=== PATIENT | male | born 1995 | race African-American/Black ===

== ENCOUNTER 2016-09-12 21:31 | Emergency (ER) | payer SELFPAY ==
[2016-09-12 21:48] VITALS: BP 123/87; PULSE 87; RESP 16; TEMP 98.9
[2016-09-12] MEDS ORDERED: levETIRAcetam 500 MG TAB PO STA (22:09)
[2016-09-12] MEDS ORDERED: DIVALPROEX 250 MG TABLET.DR PO STA (22:09)
--- NOTE | 2016-09-12 22:27 | ED ---
General Adult HPI - General Chief complaint: Recheck/Abnormal Lab/Rx Stated complaint: recheck/off seizure meds Time Seen by Provider: 09/12/16 21:50 Source: patient Mode of arrival: ambulatory Limitations: no limitations - History of Present Illness Initial comments: 21-year-old Afro-[place] male presented for medication refill. He states that he ran out of his Keppra and Depakote earlier this month and hasn't been able to follow-up with his primary care physician to get prescriptions. He states that although he hasn't had any seizure-like activity he is growing concern that he will have a breakthrough seizure before getting the prescription. He denies any associated symptoms at this time. When asked why he hasn't followed up with his primary care physician he states that he just hasn't made any effort. His girlfriend is also a patient here which prompted him to be checked out as well. - Related Data Previous Rx's Medication Instructions Recorded Divalproex [Depakote] 750 mg PO TID #90 tablet. 09/12/16 levETIRAcetam [Keppra] 1,000 mg PO BID #60 tab 09/12/16 Allergies Allergy/AdvReac Type Severity Reaction Status Date / Time codeine Allergy Swelling Verified 09/12/16 22:09 ibuprofen Allergy Unknown Verified 09/12/16 22:09 lactose Allergy Unknown Verified 09/12/16 22:09 Review of Systems ROS Statement: Those systems with pertinent positive or pertinent negative responses have been documented in the HPI. General: Patient denies fever, chills,nausea, or vomiting. HEENT: No visual changes. No eye pain. No nasal symptoms. No dysphagia.No odynophagia. No ENT pain. Cardiac: No chest pain. No palpitations. Pulmonary; No dyspnea. No cough. GI: No abdominal pain. No diarrhea. No constipation. No bowel habit changes. No melena. No hematochezia. : No dysuria.No hematuria. No hesitancy. No urgency. No renal lithiasis history. Musculoskeletal: No musculoskeletal pain. Orthopedic: Denies fracture history. Integumentary: Denies rash. Denies pruritis. Neurologic: Denies any lateralizing weakness. Denies numbness. Denies tingling. No seizure activity. Heme/Onc: Denies anemia. Denies cancer. Denies adenopathy. ROS Other: All systems not noted in ROS Statement are negative. Past Medical History Past Medical History: Seizure Disorder Additional Past Medical History / Comment(s): Narcolepsy History of Any Multi-Drug Resistant Organisms: None Reported Past Surgical History: No Surgical Hx Reported Past Psychological History: Anxiety, Depression Smoking Status: Current every day smoker Past Alcohol Use History: None Reported Past Drug Use History: None Reported General Exam - General Exam Comments Initial Comments: General: The patient is awake and alert, in no distress, and does not appear acutely ill. Eye: Pupils are equal, round and reactive to light, extra-ocular movements are intact; there is normal conjunctiva bilaterally. No signs of icterus. Ears, nose, mouth and throat: There are moist mucous membranes and no oral lesions. Neck: The neck is supple, there is no tenderness or JVD. Cardiovascular: There is a regular rate and rhythm. No murmur, rub or gallop is appreciated. Respiratory: Lungs are clear to auscultation, respirations are non-labored, breath sounds are equal. No wheezes, stridor, rales, or rhonchi. Gastrointestinal: Soft, non-distended, non-tender abdomen without masses or organomegaly noted. There is no rebound or guarding present. No CVA tenderness. Bowel sounds are unremarkable. Back: There is no tenderness to palpation in the midline. There is no obvious deformity. No rashes noted. Musculoskeletal: Normal ROM, no tenderness, There is no pedal edema. There is no calf tenderness or swelling. Sensation intact. Pulses equal bilaterally 2+. Neurological: CN II-XII intact, There are no obvious motor or sensory deficits. Coordination appears grossly intact. Speech is normal. Skin: Skin is warm and dry and no rashes or lesions are noted. Psychiatric: Cooperative, appropriate mood & affect, normal judgment. Limitations: no limitations Course Vital Signs 09/12/16 21:45 Temperature 98.9 F Pulse Rate 87 Respiratory 16 Rate Blood Pressure 123/87 O2 Sat by Pulse 98 Oximetry Medical Decision Making - Medical Decision Making 21-year-old male presenting for medication refill. He states that he ran out of his seizure medications which include Depakote 750 mg 3 times a day and Keppra 1000 mg twice a day. He states that he hasn't taken his medications since September 01 or . He denies any seizure activity or other associated symptoms. Physical examination reveals a normal neurologic evaluation with cranial nerves II through XII intact without focal neurologic deficit. The patient was given oral doses of his home medications and prescriptions for a month of his antiseizure medications. He was advised to follow-up with his neurologist and his primary care physician. He was further advised to return to this facility if he should develop any new or concerning symptoms including seizure activity. The patient acknowledged an understanding of this information and agreed with this plan of care. Disposition Clinical Impression: Encounter for medication refill Disposition: HOME SELF-CARE Condition: Stable Instructions: Epilepsy (ED), Recurrent Seizures in Adults (ED) Additional Instructions: Please use medication as discussed. Please follow up with family doctor if symptoms have not improved over the next two days. Please return to the emergency room if your symptoms increase or worsen or for any other concerns. Prescriptions: Divalproex [Depakote] 750 mg PO TID #90 tablet. levETIRAcetam [Keppra] 1,000 mg PO BID #60 tab Referrals: Nayan Mendoza MD [Primary Care Provider] - 1-2 days Time of Disposition: 22:27
== END 2016-09-12 22:30 | disposition home or self-care (01) ==
LOC: EC 21:31
DX: Z76.0 Encounter for issue of repeat prescription (principal); T42.6X6A Underdosing of other antiepileptic and sedative-hypnotic drugs, initial encounter; Z91.128 Patient's intentional underdosing of medication regimen for other reason; G40.909 Epilepsy, unspecified, not intractable, without status epilepticus; F17.200 Nicotine dependence, unspecified, uncomplicated; Z79.899 Other long term (current) drug therapy; Z88.5 Allergy status to narcotic agent; Z88.8 Allergy status to other drugs, medicaments and biological substances
CPT/HCPCS: 99282

== ENCOUNTER 2016-09-16 15:05 | Emergency (ER) | payer SELFPAY ==
[2016-09-16 15:15] VITALS: TEMP 98.3
[2016-09-16] MEDS ORDERED: SODIUM CHLORIDE 0.9% 1,000 ML IV ONE (15:32)
[2016-09-16 16:18] LABS: Basophils % (A) 1 %; CH 29.7; Eosinophils # (A) 0.2 k/uL (0-0.7); Eosinophils % (A) 3 %; HCT 44.8 % (39.0-53.0); HDW 2.82; HGB 14.9 gm/dL (13.0-17.5); Luc % (Auto) 2; Lymphocytes # (A) 1.4 k/uL (1.0-4.8); Lymphocytes % (A) 22 %; MCH 29.1 pg (25.0-35.0); MCHC 33.2 g/dL (31.0-37.0); MCV 87.7 fL (80.0-100.0); Mean Platelet Volume 7.6; Monocytes # (A) 0.5 k/uL (0-1.0); Monocytes % (A) 8 %; Neutrophils # (A) 3.9 k/uL (1.3-7.7); Neutrophils % (A) 65 %; RDW 13.7 % (11.5-15.5); WBC 6.1 k/uL (3.8-10.6); WBC (Perox) 5.88
[2016-09-16 16:35] LABS: ALT 41 U/L (21-72); AST 22 U/L (17-59); Alkaline Phosphatase 56 U/L (38-126); Anion Gap 11 mmol/L; Blood Urea Nitrogen 10 mg/dL (9-20); Calcium 9.6 mg/dL (8.4-10.2); Carbon Dioxide 23 mmol/L (22-30); Chloride 110 mmol/L (98-107); Glucose 80 mg/dL (74-99); Non-African American GFR(MDRD) >60 (>60 ml/min/1.73 sqM); Potassium 4.6 mmol/L (3.5-5.1); Sodium 144 mmol/L (137-145); Total Bilirubin 0.5 mg/dL (0.2-1.3); Total Protein 6.8 g/dL (6.3-8.2)
--- NOTE | 2016-09-16 17:10 | ED ---
General Adult HPI - General Chief complaint: Seizure Stated complaint: Seizure Time Seen by Provider: 09/16/16 15:18 Source: patient, EMS, RN notes reviewed, old records reviewed Mode of arrival: EMS Limitations: no limitations - History of Present Illness Initial comments: 21-year-old male with seizure history presenting for seizure today. Patient is initially postictal and unable to give much history. He does follow commands and he knows where he is at. States he did have a seizure earlier but cannot remember much other than that. He states that this time that he has been taking his Keppra and Depakote. Per review of records it appears that he was seen on 09/12/16 due to running out of his medications and was provided Rx at that time. It does not appear that he had many seizures at that time. - Related Data Previous Rx's Medication Instructions Recorded Divalproex [Depakote] 750 mg PO TID #90 tablet. 09/12/16 levETIRAcetam [Keppra] 1,000 mg PO BID #60 tab 09/12/16 Allergies Allergy/AdvReac Type Severity Reaction Status Date / Time codeine Allergy Swelling Verified 09/16/16 15:35 ibuprofen Allergy Unknown Verified 09/16/16 15:35 lactose Allergy Unknown Verified 09/16/16 15:35 phenytoin [From Dilantin] Allergy Unknown Verified 09/16/16 15:35 Review of Systems ROS Statement: Those systems with pertinent positive or pertinent negative responses have been documented in the HPI. ROS Other: All systems not noted in ROS Statement are negative. Past Medical History Past Medical History: Seizure Disorder Additional Past Medical History / Comment(s): Narcolepsy History of Any Multi-Drug Resistant Organisms: None Reported Past Surgical History: No Surgical Hx Reported Past Psychological History: Anxiety, Depression Smoking Status: Current every day smoker Past Alcohol Use History: None Reported Past Drug Use History: None Reported General Exam - General Exam Comments Initial Comments: General: Awake and Alert. No acute distress. Does not appear acutely ill. Eyes: SALLY, EOM intact. No nystagmus. No scleral icterus. HENT: Atraumatic, normocephalic. Mucous membranes moist. Trachea midline. Neck: The neck is supple, there is no tenderness or JVD. Cardiovascular: Regular rate and rhythm. No murmur, rub, or gallop is appreciated. Distal pulses intact. Respiratory: Lungs are clear to auscultation bilaterally. No wheezes, rales, rhonchi. No respiratory distress. Gastrointestinal: Soft, Nontender. No rebound or guarding. Non-distended. No masses or organomegaly noted. No CVA tenderness. Musculoskeletal: No tenderness. Normal ROM. No gross deformity. No strength deficits. Neurological: Alert and oriented but somewhat confused, consistent with postictal state. CN II-XII grossly intact, There are no obvious motor or sensory deficits. Coordination appears grossly intact. Speech is normal. Skin: Skin is warm and dry and no rashes or lesions are noted. Psychiatric: Cooperative, appropriate mood & affect, normal judgment. Limitations: no limitations Course Vital Signs 09/16/16 09/16/16 09/16/16 15:10 15:58 18:18 Temperature 98.3 F 98.3 F Pulse Rate 92 74 101 H Respiratory 16 18 17 Rate Blood Pressure 110/53 92/49 124/56 O2 Sat by Pulse 93 L 100 Oximetry Medical Decision Making - Medical Decision Making 21-year-old male with history of seizures presenting for seizure. Patient initially placed in seizure precautions. No evidence of significant trauma on examination. No active seizing upon arrival. Lab work ordered. Started on IV fluids. Laboratory grossly unremarkable. Depakote level is subtherapeutic. Patient refused to provide a urine for UDS testing. On reevaluation patient is awake and alert. He had a food tray without issue. Patient is no longer postictal. States he is feeling back to baseline. Does state that he has not filled his medications which were prescribed for him back on the because of issues with his Medicaid running out. Discussed that he needs to follow-up and get his medications so he doesn't continue to have seizures. His understanding of this. Discussed close follow-up with his PCP and neurologist. Patient is otherwise stable for discharge home. He was given his doses of medications in the ED. He does have scripts currently on file with [facility] and is working to get them filled. Discussed concerning signs symptoms for immediate return to the ED. Patient is agreeable with plan and discharge home. - Lab Data Result diagrams: 09/16/16 15:55 09/16/16 15:55 Lab Results 09/16/16 09/16/16 09/16/16 Range/Units 15:55 15:55 18:03 WBC 6.1 (3.8-10.6) k/uL RBC 5.10 (4.30-5.90) m/uL Hgb 14.9 (13.0-17.5) gm/dL Hct 44.8 (39.0-53.0) % MCV 87.7 (80.0-100.0) fL MCH 29.1 (25.0-35.0) pg MCHC 33.2 (31.0-37.0) g/dL RDW 13.7 (11.5-15.5) % Plt Count 223 (150-450) k/uL Neutrophils % 65 % Lymphocytes % 22 % Monocytes % 8 % Eosinophils % 3 % Basophils % 1 % Neutrophils # 3.9 (1.3-7.7) k/uL Lymphocytes # 1.4 (1.0-4.8) k/uL Monocytes # 0.5 (0-1.0) k/uL Eosinophils # 0.2 (0-0.7) k/uL Basophils # 0.0 (0-0.2) k/uL Sodium 144 (137-145) mmol/L Potassium 4.6 (3.5-5.1) mmol/L Chloride 110 H (98-107) mmol/L Carbon Dioxide 23 (22-30) mmol/L Anion Gap 11 mmol/L BUN 10 (9-20) mg/dL Creatinine 0.80 (0.66-1.25) mg/dL Est GFR (MDRD) Af Amer >60 (>60 ml/min/1.73 sqM) Est GFR (MDRD) Non-Af >60 (>60 ml/min/1.73 sqM) Glucose 80 (74-99) mg/dL Calcium 9.6 (8.4-10.2) mg/dL Total Bilirubin 0.5 (0.2-1.3) mg/dL AST 22 (17-59) U/L ALT 41 (21-72) U/L Alkaline Phosphatase 56 (38-126) U/L Total Protein 6.8 (6.3-8.2) g/dL Albumin 4.2 (3.5-5.0) g/dL Urine Opiates Screen Not Detected (NotDetected) Ur Oxycodone Screen Not Detected (NotDetected) Urine Methadone Screen Not Detected (NotDetected) Ur Propoxyphene Screen Not Detected (NotDetected) Ur Barbiturates Screen Not Detected (NotDetected) Valproic Acid <10.0 ug/mL U Tricyclic Antidepress Not Detected (NotDetected) Ur Phencyclidine Scrn Not Detected (NotDetected) Ur Amphetamines Screen Not Detected (NotDetected) U Methamphetamines Scrn Not Detected (NotDetected) U Benzodiazepines Scrn Not Detected (NotDetected) Urine Cocaine Screen Not Detected (NotDetected) U Marijuana (THC) Screen Detected H (NotDetected) Disposition Clinical Impression: Seizure, Noncompliance with medication regimen Disposition: HOME SELF-CARE Condition: Stable Instructions: Recurrent Seizures in Adults (ED) Referrals: Nayan Mendoza MD [Primary Care Provider] - 1-2 days Time of Disposition: 18:10
[2016-09-16] MEDS ORDERED: DIVALPROEX 250 MG TABLET.DR PO STA (17:27)
[2016-09-16] MEDS ORDERED: levETIRAcetam 500 MG TAB PO STA (17:28)
[2016-09-16 18:20] VITALS: BP 124/56; PULSE 101; RESP 17
== END 2016-09-16 18:21 | disposition home or self-care (01) ==
LOC: EC 15:05
DX: G40.909 Epilepsy, unspecified, not intractable, without status epilepticus (principal); Z91.14 Patient's other noncompliance with medication regimen; Z79.899 Other long term (current) drug therapy; Z88.5 Allergy status to narcotic agent; Z88.8 Allergy status to other drugs, medicaments and biological substances; Z88.6 Allergy status to analgesic agent; Z91.011 Allergy to milk products; F17.200 Nicotine dependence, unspecified, uncomplicated
CPT/HCPCS: 36415; 80053; 80164; 80306; 85025; 99285

== ENCOUNTER 2016-10-20 22:42 | Emergency (ER) | payer SELFPAY ==
[2016-10-20 22:58] VITALS: BP 108/68; PULSE 72; RESP 17; TEMP 99.2
--- NOTE | 2016-10-20 23:19 | ED ---
General Adult HPI - General Chief complaint: Fall Stated complaint: left ankle pain; left foot pain Time Seen by Provider: 10/20/16 23:11 Source: patient, RN notes reviewed Mode of arrival: wheelchair Limitations: no limitations - History of Present Illness Initial comments: Patient is a 21-year-old male who presents emergency room today with chief complaint of injury to the left ankle and foot that occurred earlier today. He does admit that he was playing football earlier today stepped into a hole twisting left ankle. He admits that ankle itself is feeling better but he still had some pain to the left toe with believes he stubbed his toe a few days ago. He states he was wrestling with his nephew also hit the right hip on the dresser. He states been able abdomen. At times had pain in the right hip. Again patient was playing football earlier today. Patient denies any other complaints or symptoms at this time. Patient denies any recent fever, chills, shortness of breath, chest pain, back pain, abdominal pain, nausea or vomiting, numbness or tingling, dysuria or hematuria, constipation or diarrhea, headaches or visual changes, or any other complaints. - Related Data Previous Rx's Medication Instructions Recorded Divalproex [Depakote] 750 mg PO TID #90 tablet. 09/12/16 levETIRAcetam [Keppra] 1,000 mg PO BID #60 tab 09/12/16 Ibuprofen [Motrin] 600 mg PO Q6HR PRN #20 day 10/21/16 Allergies Allergy/AdvReac Type Severity Reaction Status Date / Time codeine Allergy Swelling Verified 10/20/16 22:54 ibuprofen Allergy Unknown Verified 10/20/16 22:54 lactose Allergy Unknown Verified 10/20/16 22:54 phenytoin [From Dilantin] Allergy Unknown Verified 10/20/16 22:54 Review of Systems ROS Statement: Those systems with pertinent positive or pertinent negative responses have been documented in the HPI. ROS Other: All systems not noted in ROS Statement are negative. Past Medical History Past Medical History: Seizure Disorder Additional Past Medical History / Comment(s): Narcolepsy History of Any Multi-Drug Resistant Organisms: None Reported Past Surgical History: No Surgical Hx Reported Past Psychological History: Anxiety, Depression Smoking Status: Current every day smoker Past Alcohol Use History: None Reported Past Drug Use History: None Reported General Exam - General Exam Comments Initial Comments: General: The patient is awake and alert, in no distress, and does not appear acutely ill. Neck: The neck is supple, there is no tenderness or JVD. Cardiovascular: There is a regular rate and rhythm. No murmur, rub or gallop is appreciated. Respiratory: Lungs are clear to auscultation, respirations are non-labored, breath sounds are equal. No wheezes, stridor, rales, or rhonchi. Musculoskeletal: Normal appearance of the right hip. No appearance of the left foot and ankle. Patient's sensation is intact pulses equal bilaterally 2+. Strength 5/5. Mild tenderness over the distal left toe. No other bony tenderness on exam. Neurological: A&O x 3. CN II-XII intact, There are no obvious motor or sensory deficits. Coordination appears grossly intact. Speech is normal. Skin: Skin is warm and dry and no rashes or lesions are noted. Psychiatric: Normal mood and affect. Limitations: no limitations Course Vital Signs 10/20/16 22:54 Temperature 99.2 F Pulse Rate 72 Respiratory 17 Rate Blood Pressure 108/68 O2 Sat by Pulse 98 Oximetry Medical Decision Making - Medical Decision Making Patient x-rays reviewed and are negative for any acute abnormalities. Patient is advised follow-up orthopedics if symptoms persist. Is advised to return for any other concerns. He does admit that he is taking Motrin at home. Has refused Toradol shot. He states the child Motrin even though he does have ALLERGY to ibuprofen again he does state he took Motrin yesterday. Disposition Clinical Impression: Ankle sprain, Toe sprain Disposition: HOME SELF-CARE Condition: Good Instructions: Ankle Sprain (ED) Additional Instructions: Please follow-up with orthopedics over the next week if symptoms are not improving. Please use medication as prescribed and return to emergency room for any other concerns. Prescriptions: Ibuprofen [Motrin] 600 mg PO Q6HR PRN #20 day PRN Reason: Pain Referrals: Nayan Mendoza MD [Primary Care Provider] - 1-2 days Simon Sims MD [Medical Doctor] - 1-2 days Time of Disposition: 00:12
--- NOTE | 2016-10-20 23:59 | XR ---
EXAM: XR Left Foot Complete, 3 or More Views. CLINICAL HISTORY: Reason: Pain TECHNIQUE: Frontal, lateral and oblique views of the left foot. COMPARISON: No relevant prior studies available. FINDINGS: Bones: Unremarkable. No acute fracture. Joints: Unremarkable. No dislocation. Soft tissues: Unremarkable. No radiopaque foreign body. IMPRESSION: Normal left foot.
--- NOTE | 2016-10-21 | XR ---
EXAM: XR Left Ankle Complete, 3 or More Views. CLINICAL HISTORY: Reason: Pain TECHNIQUE: Frontal, lateral and oblique views of the left ankle. COMPARISON: No relevant prior studies available. FINDINGS: Bones: Unremarkable. No acute fracture. Joints: Unremarkable. No dislocation. Soft tissues: Unremarkable. IMPRESSION: Normal left ankle.
[2016-10-21] MEDS ORDERED: IBUPROFEN 600 MG STARTER PACK 4 TAB BTL PO STA (00:11)
== END 2016-10-21 00:20 | disposition home or self-care (01) ==
LOC: EC 22:42
DX: S93.402A Sprain of unspecified ligament of left ankle, initial encounter (principal); S93.509A Unspecified sprain of unspecified toe(s), initial encounter; F17.200 Nicotine dependence, unspecified, uncomplicated; Z88.5 Allergy status to narcotic agent; Z88.6 Allergy status to analgesic agent; Z91.011 Allergy to milk products; Z88.8 Allergy status to other drugs, medicaments and biological substances; X50.1XXA Overexertion from prolonged static or awkward postures, initial encounter; Y93.61 Activity, american tackle football
CPT/HCPCS: 99283

== ENCOUNTER 2016-11-03 11:10 | Emergency (ER) | payer OTHER ==
[2016-11-03] MEDS ORDERED: SODIUM CHLORIDE 0.9% 1,000 ML IV STA ×2 (11:20)
[2016-11-03] MEDS ORDERED: levETIRAcetam IV 500 MG in SODIUM CHLORIDE 0.9% 100 ML IVPB STA (11:21)
[2016-11-03 11:28] LABS: Glucose,Whole Blood 152 mg/dL (75-99)
[2016-11-03 11:41] LABS: Basophils # (A) 0.1 k/uL (0-0.2); Basophils % (A) 1 %; CH 28.4; CHCM 31.5; Eosinophils # (A) 0.1 k/uL (0-0.7); Eosinophils % (A) 1 %; HCT 53.8 % (39.0-53.0); HDW 2.62; HGB 17.3 gm/dL (13.0-17.5); Hypochromasia Slight; Luc # (Auto) 0.38; Luc % (Auto) 4; Lymphocytes # (A) 5.9 k/uL (1.0-4.8); Lymphocytes % (A) 57 %; MCHC 32.1 g/dL (31.0-37.0); MCV 90.5 fL (80.0-100.0); Mean Platelet Volume 7.5; Monocytes # (A) 0.6 k/uL (0-1.0); Monocytes % (A) 6 %; Neutrophils # (A) 3.2 k/uL (1.3-7.7); Neutrophils % (A) 31 %; RBC 5.95 m/uL (4.30-5.90); RDW 11.7 % (11.5-15.5); WBC 10.3 k/uL (3.8-10.6); WBC (Perox) 10.53
[2016-11-03 11:50] LABS: ALT 20 U/L (21-72); AST 31 U/L (17-59); Alcohol <10 mg/dL; Alkaline Phosphatase 60 U/L (38-126); Anion Gap 30 mmol/L; Blood Urea Nitrogen 12 mg/dL (9-20); Calcium 10.3 mg/dL (8.4-10.2); Chloride 106 mmol/L (98-107); Glucose 150 mg/dL (74-99); Magnesium 2.5 mg/dL (1.6-2.3); Non-African American GFR(MDRD) >60 (>60 ml/min/1.73 sqM); Potassium 4.3 mmol/L (3.5-5.1); Sodium 146 mmol/L (137-145); Total Bilirubin 0.7 mg/dL (0.2-1.3); Total Protein 8.5 g/dL (6.3-8.2)
--- NOTE | 2016-11-03 11:56 | ED ---
Seizure HPI - General Chief Complaint: Seizure Stated Complaint: Seizures Time Seen by Provider: 11/03/16 11:10 Source: patient, RN notes reviewed Mode of arrival: EMS Limitations: no limitations - History of Present Illness Initial Comments: This is a 21-year-old male with a history of a seizure disorder who apparently was playing video games prior to admission when he had 2 seizures of unknown length of time. As per prior episodes he starts developing nausea vomiting after having a seizure. He was brought in by EMS with no further information the neck which was rendered by them initially. This is a similar pattern to the patient previous. He is on Depakote and Keppra. He has does have a history of abusing alcohol. It is unknown whether that was parked today's presentation. Patient does complain of a headache he did have adequate blood pressure and other vital signs as well as an adequate glucose on glucometer 3. Additionally the patient was given IV Zofran and route by paramedics. MD Complaint: seizure, other - Related Data Previous Rx's Medication Instructions Recorded Divalproex [Depakote] 750 mg PO TID #90 tablet. 09/12/16 levETIRAcetam [Keppra] 1,000 mg PO BID #60 tab 09/12/16 Ibuprofen [Motrin] 600 mg PO Q6HR PRN #20 day 10/21/16 Allergies Allergy/AdvReac Type Severity Reaction Status Date / Time codeine Allergy Swelling Verified 11/03/16 11:34 ibuprofen Allergy Unknown Verified 11/03/16 11:34 lactose Allergy Unknown Verified 11/03/16 11:34 phenytoin [From Dilantin] Allergy Unknown Verified 11/03/16 11:34 Review of Systems ROS Statement: Those systems with pertinent positive or pertinent negative responses have been documented in the HPI. ROS Other: All systems not noted in ROS Statement are negative. Past Medical History Past Medical History: Seizure Disorder Additional Past Medical History / Comment(s): Narcolepsy History of Any Multi-Drug Resistant Organisms: None Reported Past Surgical History: No Surgical Hx Reported Past Psychological History: Anxiety, Depression Smoking Status: Current every day smoker Past Alcohol Use History: None Reported Past Drug Use History: None Reported General Exam - General Exam Comments Initial Comments: Is a well-developed wall versus awake alert somewhat lethargic male Limitations: no limitations General appearance: alert, in no apparent distress Head exam: Present: atraumatic, normocephalic, normal inspection Eye exam: Present: normal appearance, PERRL, EOMI. Absent: scleral icterus, conjunctival injection, periorbital swelling ENT exam: Present: normal exam, mucous membranes moist Neck exam: Present: normal inspection. Absent: tenderness, meningismus, lymphadenopathy Respiratory exam: Present: normal lung sounds bilaterally. Absent: respiratory distress, wheezes, rales, rhonchi, stridor Cardiovascular Exam: Present: regular rate, normal rhythm, normal heart sounds. Absent: systolic murmur, diastolic murmur, rubs, gallop, clicks GI/Abdominal exam: Present: soft, normal bowel sounds. Absent: distended, tenderness, guarding, rebound, rigid Extremities exam: Present: normal inspection, full ROM, normal capillary refill. Absent: tenderness, pedal edema, joint swelling, calf tenderness Back exam: Present: normal inspection Neurological exam: Present: alert, oriented X3, CN II-XII intact Psychiatric exam: Present: normal affect, normal mood Skin exam: Present: warm, dry, intact, normal color. Absent: rash Course Vital Signs 11/03/16 11:32 Temperature 97.1 F L Pulse Rate 80 Respiratory 15 Rate Blood Pressure 126/70 O2 Sat by Pulse 97 Oximetry Medical Decision Making - Medical Decision Making Patient is now awake and alert hungry wants to eat. I did discuss findings with her significant other. Patient be discharged he did take his medications as directed avoid alcohol and also avoid video games and flashing lights and monitor screens. - Lab Data Result diagrams: 11/03/16 11:22 11/03/16 11:22 Lab Results 11/03/16 11/03/16 11/03/16 Range/Units 11:22 11:22 11:22 WBC 10.3 (3.8-10.6) k/uL RBC 5.95 H (4.30-5.90) m/uL Hgb 17.3 (13.0-17.5) gm/dL Hct 53.8 H (39.0-53.0) % MCV 90.5 (80.0-100.0) fL MCH 29.0 (25.0-35.0) pg MCHC 32.1 (31.0-37.0) g/dL RDW 11.7 (11.5-15.5) % Plt Count 290 (150-450) k/uL Neutrophils % 31 % Lymphocytes % 57 % Monocytes % 6 % Eosinophils % 1 % Basophils % 1 % Neutrophils # 3.2 (1.3-7.7) k/uL Lymphocytes # 5.9 H (1.0-4.8) k/uL Monocytes # 0.6 (0-1.0) k/uL Eosinophils # 0.1 (0-0.7) k/uL Basophils # 0.1 (0-0.2) k/uL Manual Slide Review Performed Hypochromasia Slight Poikilocytosis (manual Present Sodium 146 H (137-145) mmol/L Potassium 4.3 (3.5-5.1) mmol/L Chloride 106 (98-107) mmol/L Carbon Dioxide 10 L* (22-30) mmol/L Anion Gap 30 mmol/L BUN 12 (9-20) mg/dL Creatinine 1.00 (0.66-1.25) mg/dL Est GFR (MDRD) Af Amer >60 (>60 ml/min/1.73 sqM) Est GFR (MDRD) Non-Af >60 (>60 ml/min/1.73 sqM) Glucose 150 H (74-99) mg/dL POC Glucose (mg/dL) (75-99) mg/dL POC Glu Manga Artist ID Calcium 10.3 H (8.4-10.2) mg/dL Magnesium 2.5 H (1.6-2.3) mg/dL Total Bilirubin 0.7 (0.2-1.3) mg/dL AST 31 (17-59) U/L ALT 20 L (21-72) U/L Alkaline Phosphatase 60 (38-126) U/L Total Creatine Kinase 352 H (55-170) U/L CK-MB (CK-2) 1.0 (0.0-2.4) ng/mL CK-MB (CK-2) Rel Index 0.3 Total Protein 8.5 H (6.3-8.2) g/dL Albumin 5.3 H (3.5-5.0) g/dL Valproic Acid <10.0 ug/mL Serum Alcohol <10 mg/dL 11/03/16 Range/Units 11:26 WBC (3.8-10.6) k/uL RBC (4.30-5.90) m/uL Hgb (13.0-17.5) gm/dL Hct (39.0-53.0) % MCV (80.0-100.0) fL MCH (25.0-35.0) pg MCHC (31.0-37.0) g/dL RDW (11.5-15.5) % Plt Count (150-450) k/uL Neutrophils % % Lymphocytes % % Monocytes % % Eosinophils % % Basophils % % Neutrophils # (1.3-7.7) k/uL Lymphocytes # (1.0-4.8) k/uL Monocytes # (0-1.0) k/uL Eosinophils # (0-0.7) k/uL Basophils # (0-0.2) k/uL Manual Slide Review Hypochromasia Poikilocytosis (manual Sodium (137-145) mmol/L Potassium (3.5-5.1) mmol/L Chloride (98-107) mmol/L Carbon Dioxide (22-30) mmol/L Anion Gap mmol/L BUN (9-20) mg/dL Creatinine (0.66-1.25) mg/dL Est GFR (MDRD) Af Amer (>60 ml/min/1.73 sqM) Est GFR (MDRD) Non-Af (>60 ml/min/1.73 sqM) Glucose (74-99) mg/dL POC Glucose (mg/dL) 152 H (75-99) mg/dL POC Glu Manga Artist ID Calcium (8.4-10.2) mg/dL Magnesium (1.6-2.3) mg/dL Total Bilirubin (0.2-1.3) mg/dL AST (17-59) U/L ALT (21-72) U/L Alkaline Phosphatase (38-126) U/L Total Creatine Kinase (55-170) U/L CK-MB (CK-2) (0.0-2.4) ng/mL CK-MB (CK-2) Rel Index Total Protein (6.3-8.2) g/dL Albumin (3.5-5.0) g/dL Valproic Acid ug/mL Serum Alcohol mg/dL - EKG Data -: EKG Interpreted by Me (Sinus rhythm a rate of 62 CT interval 140 QRS duration 98 QT/QTC of 4:30/43) EKG shows normal: sinus rhythm, axis - Radiology Data Radiology results: report reviewed (I did review the imaging and reports no acute findings.), image reviewed Disposition Clinical Impression: Generalized seizure, Seizure secondary to subtherapeutic anticonvulsant medication Disposition: HOME SELF-CARE Condition: Good Instructions: Recurrent Seizures in Adults (ED) Additional Instructions: Take your medications as instructed and follow-up with her doctor. Avoid flashing lights and television screens/ video screens
[2016-11-03 11:59] LABS: Carbon Dioxide 10 mmol/L (22-30)
[2016-11-03 12:00] LABS: Manual Review Performed
--- NOTE | 2016-11-03 13:11 | XR ---
EXAMINATION TYPE: XR chest 2V DATE OF EXAM: 11/03/2016 1:00 PM COMPARISON: 03/25/2016 HISTORY: Seizure TECHNIQUE: Frontal and lateral views of the chest are obtained. FINDINGS: Heart and mediastinum are normal. Lungs are clear. Diaphragm is normal. Bony thorax appear s normal. IMPRESSION: Normal chest. No change.
[2016-11-03 14:09] VITALS: BP 99/52; PULSE 52; RESP 20; TEMP 98
== END 2016-11-03 14:09 | disposition home or self-care (01) ==
LOC: EC 11:10
DX: R56.9 Unspecified convulsions (principal); T42.6X5A Adverse effect of other antiepileptic and sedative-hypnotic drugs, initial encounter; F17.200 Nicotine dependence, unspecified, uncomplicated; Z88.5 Allergy status to narcotic agent; Z88.6 Allergy status to analgesic agent; Z91.011 Allergy to milk products; Z88.8 Allergy status to other drugs, medicaments and biological substances
CPT/HCPCS: 36415; 93005; 80164; 80053; 82550; 82553; 83735; 85025; 80320; 71020; 99285; 96374; 96361; J1953

== ENCOUNTER 2016-11-12 04:02 | Emergency (ER) | payer OTHER ==
[2016-11-12] MEDS ORDERED: SODIUM CHLORIDE 0.9% 500 ML IV ONE (04:13)
[2016-11-12] MEDS ORDERED: ACETAMINOPHEN TAB 500 MG TAB PO STA (04:14)
[2016-11-12 04:15] LABS: Glucose,Whole Blood 154 mg/dL (75-99)
--- NOTE | 2016-11-12 04:18 | ED ---
General Adult HPI - General Stated complaint: Vomiting/Seizure Time Seen by Provider: 11/12/16 04:10 Source: RN notes reviewed - History of Present Illness Initial comments: This is a 21-year-old male who presents emergency department with past medical history significant for seizures. According to bystanders at the house he was at they stated he had a seizure by the time EMS arrived they had stopped seizing and was postictal. Patient was at that time vomiting according to the patient now he states every time he has a seizure he vomits afterwards. Patient complains of a mild headache at this time. Patient states been taking his meds religiously. Patient states she's had no alcohol and he was only smoking some marijuana. Patient denies any other problems at this time. Patient denies chest pain palpitations difficulty breathing or shortness of breath. Patient denies any abdominal pain. Patient denies any recent fever or chills. - Related Data Previous Rx's Medication Instructions Recorded Divalproex [Depakote] 750 mg PO TID #90 tablet. 09/12/16 levETIRAcetam [Keppra] 1,000 mg PO BID #60 tab 09/12/16 Ibuprofen [Motrin] 600 mg PO Q6HR PRN #20 day 10/21/16 Allergies Allergy/AdvReac Type Severity Reaction Status Date / Time codeine Allergy Swelling Verified 11/12/16 04:21 ibuprofen Allergy Unknown Verified 11/12/16 04:21 lactose Allergy Unknown Verified 11/12/16 04:21 phenytoin [From Dilantin] Allergy Unknown Verified 11/12/16 04:21 Review of Systems ROS Statement: Those systems with pertinent positive or pertinent negative responses have been documented in the HPI. ROS Other: All systems not noted in ROS Statement are negative. Past Medical History Past Medical History: Seizure Disorder Additional Past Medical History / Comment(s): Narcolepsy History of Any Multi-Drug Resistant Organisms: None Reported Past Surgical History: No Surgical Hx Reported Past Psychological History: Anxiety, Depression Smoking Status: Current every day smoker Past Alcohol Use History: None Reported Past Drug Use History: None Reported General Exam - General Exam Comments Initial Comments: GENERAL: Patient is well-developed and well-nourished. Patient is nontoxic and well- hydrated and is in no acute distress. ENT: Neck is soft and supple. No significant lymphadenopathy is noted. Oropharynx is clear. Moist mucous membranes. Neck has full range of motion without eliciting any pain. EYES: The sclera were anicteric and conjunctiva were pink and moist. Extraocular movements were intact and pupils were equal round and reactive to light. Eyelids were unremarkable. PULMONARY: Unlabored respirations. Good breath sounds bilaterally. No audible rales rhonchi or wheezing was noted. CARDIOVASCULAR: There is a regular rate and rhythm without any murmurs gallops or rubs. ABDOMEN: Soft and nontender with normal bowel sounds. No palpable organomegaly was noted. There is no palpable pulsatile mass. SKIN: Skin is clear with no lesions or rashes and otherwise unremarkable. NEUROLOGIC: Patient is alert and oriented x3. Cranial nerves II through XII are grossly intact. Motor and sensory are also intact. Normal speech, volume and content. Symmetrical smile. MUSCULOSKELETAL: Normal extremities with adequate strength and full range of motion. LYMPHATICS: No significant lymphadenopathy is noted PSYCHIATRIC: Normal psychiatric evaluation. Course Vital Signs 11/12/16 04:15 Temperature 97.8 F Pulse Rate 76 Respiratory 16 Rate Blood Pressure 142/75 O2 Sat by Pulse 100 Oximetry Medical Decision Making - Medical Decision Making Patient told us initially he was taking all his medications on a regular basis and not missing any doses. Then he told us that he didn't take his typical for a few days but he has Depakote at home and then he told me that he doesn't think he has any more Depakote home so because his story keeps changing we will have him follow up with his primary medical care doctor. - Lab Data Result diagrams: 11/12/16 04:20 11/12/16 04:20 Lab Results 11/12/16 11/12/16 11/12/16 Range/Units 04:09 04:20 04:20 WBC 10.4 (3.8-10.6) k/uL RBC 5.61 (4.30-5.90) m/uL Hgb 16.0 (13.0-17.5) gm/dL Hct 49.9 (39.0-53.0) % MCV 88.8 (80.0-100.0) fL MCH 28.6 (25.0-35.0) pg MCHC 32.2 (31.0-37.0) g/dL RDW 12.0 (11.5-15.5) % Plt Count 239 (150-450) k/uL Sodium 143 (137-145) mmol/L Potassium 4.1 (3.5-5.1) mmol/L Chloride 105 (98-107) mmol/L Carbon Dioxide 16 L (22-30) mmol/L Anion Gap 22 mmol/L BUN 11 (9-20) mg/dL Creatinine 1.00 (0.66-1.25) mg/dL Est GFR (MDRD) Af Amer >60 (>60 ml/min/1.73 sqM) Est GFR (MDRD) Non-Af >60 (>60 ml/min/1.73 sqM) Glucose 142 H (74-99) mg/dL POC Glucose (mg/dL) 154 H (75-99) mg/dL POC Glu Telephone Order Clerk Room Service ID Ellis Nolasco Calcium 9.6 (8.4-10.2) mg/dL Total Bilirubin 0.5 (0.2-1.3) mg/dL AST 28 (17-59) U/L ALT 24 (21-72) U/L Alkaline Phosphatase 54 (38-126) U/L Total Protein 7.5 (6.3-8.2) g/dL Albumin 4.8 (3.5-5.0) g/dL Valproic Acid <10.0 ug/mL Disposition Clinical Impression: Generalized seizure Disposition: HOME SELF-CARE Instructions: Recurrent Seizures in Adults (ED) Referrals: Nayan Mendoza MD [Primary Care Provider] - 1-2 days Time of Disposition: 05:29
[2016-11-12 04:53] LABS: Basophils # (A) 0.1 k/uL (0-0.2); Basophils % (A) 1 %; CH 28.5; CHCM 32.2; Eosinophils # (A) 0.1 k/uL (0-0.7); Eosinophils % (A) 1 %; HCT 49.9 % (39.0-53.0); HDW 2.45; Luc % (Auto) 3; Lymphocytes % (A) 58 %; MCH 28.6 pg (25.0-35.0); MCHC 32.2 g/dL (31.0-37.0); MCV 88.8 fL (80.0-100.0); Mean Platelet Volume 7.3; Monocytes # (A) 0.6 k/uL (0-1.0); Monocytes % (A) 5 %; Neutrophils # (A) 3.4 k/uL (1.3-7.7); Neutrophils % (A) 33 %; RBC 5.61 m/uL (4.30-5.90); WBC 10.4 k/uL (3.8-10.6); WBC (Perox) 9.94
[2016-11-12 05:01] LABS: ALT 24 U/L (21-72); AST 28 U/L (17-59); Alkaline Phosphatase 54 U/L (38-126); Anion Gap 22 mmol/L; Blood Urea Nitrogen 11 mg/dL (9-20); Calcium 9.6 mg/dL (8.4-10.2); Carbon Dioxide 16 mmol/L (22-30); Chloride 105 mmol/L (98-107); Glucose 142 mg/dL (74-99); Non-African American GFR(MDRD) >60 (>60 ml/min/1.73 sqM); Potassium 4.1 mmol/L (3.5-5.1); Sodium 143 mmol/L (137-145); Total Bilirubin 0.5 mg/dL (0.2-1.3); Total Protein 7.5 g/dL (6.3-8.2)
[2016-11-12] MEDS ORDERED: DIVALPROEX ER 250 MG TAB.ER.24H PO STA (05:27)
[2016-11-12 05:46] LABS: Large Platelets Present
[2016-11-12 06:44] VITALS: BP 126/79; PULSE 79; RESP 18; TEMP 98
== END 2016-11-12 06:25 | disposition home or self-care (01) ==
LOC: EC 04:02
DX: R56.9 Unspecified convulsions (principal); R51 Headache; R11.10 Vomiting, unspecified; F32.9 Major depressive disorder, single episode, unspecified; F41.9 Anxiety disorder, unspecified; F17.200 Nicotine dependence, unspecified, uncomplicated; Z79.899 Other long term (current) drug therapy; Z88.5 Allergy status to narcotic agent; Z88.6 Allergy status to analgesic agent; Z88.8 Allergy status to other drugs, medicaments and biological substances; Z91.011 Allergy to milk products
CPT/HCPCS: 36415; 80053; 80164; 80177; 85025; 96360; 99284

== ENCOUNTER 2017-02-02 09:29 | Emergency (ER) | payer OTHER ==
[2017-02-02 09:38] VITALS: RESP 16; TEMP 98
[2017-02-02] MEDS ORDERED: ACETAMINOPHEN TAB 325 MG TAB PO STA (09:53)
--- NOTE | 2017-02-02 09:53 | ED ---
Upper Extremity HPI - General Chief Complaint: Extremity Injury, Upper Stated Complaint: hand injury Time Seen by Provider: 02/02/17 09:44 Source: patient, RN notes reviewed Mode of arrival: ambulatory Limitations: no limitations - History of Present Illness Initial Comments: Patient's 21-year-old male presents emergency room for evaluation of right hand injury. Patient states last night he got angry and punched a door with his right fist. Patient states he's having pain in his right hand and wrist. Patient states having 6 out of 10 pain. Patient is having swelling over his hand. Patient denies any previous injuries to his hand. Patient does state he is right-handed. Patient has a numbness or tingling in his fingers. Patient denies taking anything for pain. Patient denies any other symptoms or complaints. - Related Data Previous Rx's Medication Instructions Recorded Divalproex [Depakote] 750 mg PO TID #90 tablet. 09/12/16 levETIRAcetam [Keppra] 1,000 mg PO BID #60 tab 09/12/16 RX: Ibuprofen [Motrin] 600 mg PO Q6HR PRN #20 day 10/21/16 Allergies Allergy/AdvReac Type Severity Reaction Status Date / Time codeine Allergy Swelling Verified 02/02/17 10:31 ibuprofen Allergy Unknown Verified 02/02/17 10:31 lactose Allergy Unknown Verified 02/02/17 10:31 phenytoin [From Dilantin] Allergy Unknown Verified 02/02/17 10:31 Review of Systems ROS Statement: Those systems with pertinent positive or pertinent negative responses have been documented in the HPI. ROS Other: All systems not noted in ROS Statement are negative. Past Medical History Past Medical History: Seizure Disorder Additional Past Medical History / Comment(s): Narcolepsy History of Any Multi-Drug Resistant Organisms: None Reported Past Surgical History: No Surgical Hx Reported Past Psychological History: Anxiety, Depression Smoking Status: Current every day smoker Past Alcohol Use History: None Reported, Occasional Past Drug Use History: Marijuana General Exam - General Exam Comments Initial Comments: Sitting in exam room, no acute distress. Limitations: no limitations General appearance: alert, in no apparent distress Head exam: Present: atraumatic, normocephalic, normal inspection Eye exam: Present: normal appearance ENT exam: Present: normal exam Neck exam: Present: normal inspection Respiratory exam: Present: normal lung sounds bilaterally. Absent: respiratory distress Cardiovascular Exam: Present: regular rate, normal rhythm, normal heart sounds Right Forearm Wrist exam: Present: tenderness (Tenderness on palpating over distal ulnar wrist) Hand Wrist exam: Present: full ROM, tenderness (Tenderness and swelling on palpating over fourth and fifth metacarpal bones and over fifth digit), swelling. Absent: normal inspection Neuro motor exam: Present: wrist extension intact Vascular: Present: normal capillary refill (Capillary refill less than 2 seconds ), radial pulse (2+), ulnar pulse (2+). Absent: vascular compromise Back exam: Present: normal inspection Neurological exam: Present: alert, oriented X3, CN II-XII intact, normal gait Psychiatric exam: Present: normal affect, normal mood Skin exam: Present: warm, dry, intact, normal color. Absent: rash Course Vital Signs 02/02/17 02/02/17 09:32 10:34 Temperature 98.0 F 98.0 F Pulse Rate 81 54 L Respiratory 16 16 Rate Blood Pressure 129/72 125/67 O2 Sat by Pulse 98 99 Oximetry Medical Decision Making - Medical Decision Making Patient is a 21-year-old male presents emergency room for evaluation of right hand pain. Right hand/wrist x-ray negative for any acute fractures. Patient placed in Stew wrap and advised to follow-up with primary care provider if symptoms are not improving in 7-10 days. Patient states he understands everything was discussed with him. Return parameters discussed. Case discussed Dr. Ziegler. - Radiology Data Radiology results: report reviewed, image reviewed Disposition Clinical Impression: Sprain of right hand Disposition: HOME SELF-CARE Condition: Good Instructions: Hand Sprain (ED) Additional Instructions: Rest, elevate and ice on and off for 10-15 minutes for the next 24-48 hours. Take Tylenol as needed for pain. Please follow-up with primary care provider in 7-10 days if symptoms are not improving. If new symptoms develop or symptoms worsen, please return to the ER. Referrals: Nayan Mendoza MD [Primary Care Provider] - 1-2 days Time of Disposition: 10:34
--- NOTE | 2017-02-02 10:26 | XR ---
EXAMINATION TYPE: XR hand complete RT, XR wrist complete RT DATE OF EXAM: 02/02/2017 CLINICAL HISTORY: Wrist and hand pain after punching injury one day ago. TECHNIQUE: Frontal, lateral and oblique images of the right hand and wrist are obtained. In addition fourth scaphoid view right wrist is acquired. COMPARISON: Right hand x-ray December 12, 2014. FINDINGS: There is no acute fracture/dislocation evident in the right wrist. The joint spaces in th e right wrist appear within normal limits. The overlying soft tissue appears unremarkable. Images of right hand show no acute fracture or dislocation. The joint spaces are preserved. Overlying soft tissue is unremarkable. IMPRESSION: There is no acute fracture or dislocation in the right hand or wrist.
[2017-02-02 10:36] VITALS: BP 125/67; PULSE 54
== END 2017-02-02 10:48 | disposition home or self-care (01) ==
LOC: EC 09:29
DX: S63.8X1A Sprain of other part of right wrist and hand, initial encounter (principal); F17.200 Nicotine dependence, unspecified, uncomplicated; Z88.5 Allergy status to narcotic agent; Z88.6 Allergy status to analgesic agent; Z88.8 Allergy status to other drugs, medicaments and biological substances; Z91.011 Allergy to milk products; W22.09XA Striking against other stationary object, initial encounter
CPT/HCPCS: 99283

== ENCOUNTER 2017-04-05 12:08 | Emergency (ER) | payer OTHER ==
[2017-04-05 12:16] VITALS: TEMP 98.6
[2017-04-05] MEDS ORDERED: DIVALPROEX 250 MG TABLET.DR PO STA (12:54)
[2017-04-05] MEDS ORDERED: levETIRAcetam 500 MG TAB PO STA (12:54)
[2017-04-05 13:14] VITALS: BP 130/66; PULSE 59; RESP 16
--- NOTE | 2017-04-05 13:57 | ED ---
General Adult HPI - General Chief complaint: Seizure Stated complaint: seizure Time Seen by Provider: 04/05/17 12:36 Source: patient, EMS, RN notes reviewed, old records reviewed Mode of arrival: EMS - History of Present Illness Initial comments: If complaint history of present illness a 21-year-old male with history of seizure disorder since she was a baby. He has not had his medications including Depakote and Keppra for 1 month. States he missed an appointment has not had time to go back to get them refilled. - Related Data Previous Rx's Medication Instructions Recorded Divalproex [Depakote] 750 mg PO TID #90 tablet. 09/12/16 levETIRAcetam [Keppra] 1,000 mg PO BID #60 tab 09/12/16 Ibuprofen [Motrin] 600 mg PO Q6HR PRN #20 day 10/21/16 Divalproex [Depakote] 750 mg PO TID #90 tablet. 04/05/17 levETIRAcetam [Keppra] 1,000 mg PO TID #90 tab 04/05/17 Allergies Allergy/AdvReac Type Severity Reaction Status Date / Time codeine Allergy Swelling Verified 02/02/17 10:31 ibuprofen Allergy Unknown Verified 02/02/17 10:31 lactose Allergy Unknown Verified 02/02/17 10:31 phenytoin [From Dilantin] Allergy Unknown Verified 02/02/17 10:31 Review of Systems ROS Statement: Those systems with pertinent positive or pertinent negative responses have been documented in the HPI. Review of systems at this time small discomfort to complaint of mild pain to left side of his tongue no bleeding noted. Otherwise no complaint of headache chest pain shortness breath GI/ problems no neuro deficits this time. All systems are reviewed. Past medical problems again for seizure disorder since he was a child. Family history noncontributory. No cancers. ALLERGIES to codeine, ibuprofen lactulose and Dilantin. ROS Other: All systems not noted in ROS Statement are negative. Past Medical History Past Medical History: Seizure Disorder Additional Past Medical History / Comment(s): Narcolepsy History of Any Multi-Drug Resistant Organisms: None Reported Past Surgical History: No Surgical Hx Reported Past Psychological History: ADD/ADHD, Anxiety, Depression Smoking Status: Current some day smoker Past Alcohol Use History: None Reported, Occasional Past Drug Use History: Marijuana General Exam - General Exam Comments Initial Comments: General: The patient is awake and alert, in no distress, and does not appear acutely ill. Patient had a seizure prior to coming emergency room. Witnessed by his girlfriend. Vital signs are stable temperature 98.6 pulse 70 respiratory rate 18 pulse ox on percent room air blood pressure 1 weight over 62 Eye: Pupils are equal, round and reactive to light, extra-ocular movements are intact ; there is normal conjunctiva bilaterally. No signs of icterus. Ears, nose, mouth and throat: There are moist mucous membranes and no oral lesions. Neck: The neck is supple, there is no tenderness or JVD. Cardiovascular: There is a regular rate and rhythm. No murmur, rub or gallop is appreciated. Respiratory: Lungs are clear to auscultation, respirations are non-labored, breath sounds are equal. No wheezes, stridor, rales, or rhonchi. Gastrointestinal: Soft, non-distended, non-tender abdomen without masses or organomegaly noted. There is no rebound or guarding present. No CVA tenderness. Bowel sounds are unremarkable. Back: There is no tenderness to palpation in the midline. There is no obvious deformity. No rashes noted. Musculoskeletal: Normal ROM, no tenderness, There is no pedal edema. There is no calf tenderness or swelling. Sensation intact. Pulses equal bilaterally 2+. Neurological: CN II-XII intact, There are no obvious motor or sensory deficits. Coordination appears grossly intact. Speech is normal. No focal or lateralizing findings. Skin: Skin is warm and dry and no rashes or lesions are noted. Course Vital Signs 04/05/17 04/05/17 12:14 12:59 Temperature 98.6 F Pulse Rate 70 59 L Respiratory 18 16 Rate Blood Pressure 108/62 130/66 O2 Sat by Pulse 100 100 Oximetry Medical Decision Making - Medical Decision Making Medical decision making; the patient was given his dose of Depakote 750 and Keppra 1000 by mouth. Pseudotumor receiving that the patient wanted to leave. He is at this time signing out AGAINST MEDICAL ADVICE. Not allowing labs to be drawn or waiting long enough for the medications to be effective. Or for observation. Patient will be given prescription for refill. Strongly advised follow-up with his family physician and his neurologist. Disposition Clinical Impression: Seizure disorder, Non-compliant patient Disposition: Left Against Medical Advice Condition: Stable Instructions: Recurrent Seizures in Adults (ED) Additional Instructions: Get prescriptions filled take as directed follow with family physician and your neurologist. No driving for 6 months until cleared by Prescriptions: Divalproex [Depakote] 750 mg PO TID #90 tablet. levETIRAcetam [Keppra] 1,000 mg PO TID #90 tab Referrals: Nayan Mendoza MD [Primary Care Provider] - 1-2 days Time of Disposition: 13:57
== END 2017-04-05 14:00 | disposition left against medical advice (07) ==
LOC: EC 12:08
DX: G40.909 Epilepsy, unspecified, not intractable, without status epilepticus (principal); Z91.19 Patient's noncompliance with other medical treatment and regimen; F17.200 Nicotine dependence, unspecified, uncomplicated; Z53.29 Procedure and treatment not carried out because of patient's decision for other reasons; Z88.5 Allergy status to narcotic agent; Z88.6 Allergy status to analgesic agent; Z88.8 Allergy status to other drugs, medicaments and biological substances; Z91.011 Allergy to milk products; Z79.899 Other long term (current) drug therapy
CPT/HCPCS: 99284

== ENCOUNTER 2017-06-11 23:44 | Emergency (ER) | payer OTHER ==
[2017-06-11 23:55] VITALS: TEMP 97.9
--- NOTE | 2017-06-12 00:21 | ED ---
Seizure HPI - General Chief Complaint: Seizure Stated Complaint: Poss seizure Time Seen by Provider: 06/11/17 23:55 Source: EMS Mode of arrival: EMS Limitations: no limitations - History of Present Illness MD Complaint: seizure -: minutes(s) Description of Episode: loss of consciousness, tonic-clonic movement Duration of Episode: 1 -: minutes(s) Seizure History: known seizure disorder, history of non-compliance with treatment Possible Precipitating Event: none Associated Symptoms: denies other symptoms Treatments Prior to Arrival: none - Related Data Previous Rx's Medication Instructions Recorded Divalproex [Depakote] 750 mg PO TID #90 tablet. 09/12/16 levETIRAcetam [Keppra] 1,000 mg PO BID #60 tab 09/12/16 Ibuprofen [Motrin] 600 mg PO Q6HR PRN #20 day 10/21/16 Divalproex [Depakote] 750 mg PO TID #90 tablet. 04/05/17 levETIRAcetam [Keppra] 1,000 mg PO TID #90 tab 04/05/17 Allergies Allergy/AdvReac Type Severity Reaction Status Date / Time codeine Allergy Swelling Verified 02/02/17 10:31 ibuprofen Allergy Unknown Verified 02/02/17 10:31 lactose Allergy Unknown Verified 02/02/17 10:31 phenytoin [From Dilantin] Allergy Unknown Verified 02/02/17 10:31 Review of Systems ROS Statement: Those systems with pertinent positive or pertinent negative responses have been documented in the HPI. ROS Other: All systems not noted in ROS Statement are negative. Constitutional: Denies: fever, weakness Eyes: Denies: vision change Respiratory: Denies: cough, dyspnea Cardiovascular: Denies: chest pain, syncope Gastrointestinal: Denies: abdominal pain Musculoskeletal: Denies: back pain Skin: Denies: rash Neurological: Denies: headache, weakness Past Medical History Past Medical History: Seizure Disorder Additional Past Medical History / Comment(s): Narcolepsy History of Any Multi-Drug Resistant Organisms: None Reported Past Surgical History: No Surgical Hx Reported Past Psychological History: ADD/ADHD, Anxiety, Depression Smoking Status: Current some day smoker Past Alcohol Use History: None Reported, Occasional Past Drug Use History: Marijuana General Exam Limitations: no limitations General appearance: alert, in no apparent distress Head exam: Present: atraumatic, normocephalic Eye exam: Present: normal appearance, PERRL, EOMI. Absent: scleral icterus, conjunctival injection, nystagmus ENT exam: Present: normal oropharynx Neck exam: Present: normal inspection Respiratory exam: Present: normal lung sounds bilaterally. Absent: respiratory distress, wheezes, rales, rhonchi, stridor Cardiovascular Exam: Present: normal rhythm, bradycardia (Rate approximately 56 bpm), normal heart sounds. Absent: systolic murmur, diastolic murmur, rubs, gallop GI/Abdominal exam: Present: soft. Absent: distended, tenderness, guarding, rebound, mass Extremities exam: Present: normal inspection, normal capillary refill. Absent: pedal edema, calf tenderness Back exam: Present: normal inspection. Absent: CVA tenderness (R), CVA tenderness (L) Neurological exam: Present: alert, oriented X3, CN II-XII intact. Absent: motor sensory deficit Skin exam: Present: warm, dry, intact, normal color. Absent: rash Course Vital Signs 06/11/17 06/12/17 23:49 00:52 Temperature 97.9 F Pulse Rate 51 L 70 Respiratory 16 16 Rate Blood Pressure 144/85 92/52 O2 Sat by Pulse 97 100 Oximetry Medical Decision Making - Lab Data Result diagrams: 06/12/17 00:00 06/12/17 00:00 Lab Results 06/12/17 06/12/17 06/12/17 Range/Units 00:00 00:00 00:00 WBC 14.7 H (3.8-10.6) k/uL RBC 6.17 H (4.30-5.90) m/uL Hgb 16.6 (13.0-17.5) gm/dL Hct 53.4 H (39.0-53.0) % MCV 86.6 (80.0-100.0) fL MCH 26.9 (25.0-35.0) pg MCHC 31.1 (31.0-37.0) g/dL RDW 12.4 (11.5-15.5) % Plt Count 242 (150-450) k/uL Neutrophils % (Manual) 29 % Band Neutrophils % 1 % Lymphocytes % (Manual) 66 % Monocytes % (Manual) 4 % Neutrophils # (Manual) 4.40 (1.3-7.7) k/uL Lymphocytes # (Manual) 9.70 H (1.0-4.8) k/uL Monocytes # (Manual) 0.59 (0-1.0) k/uL Nucleated RBCs 0 (0-0) /100 WBC Manual Slide Review Performed Reactive Lymphocytes Present Large Platelets Present Sodium 141 (137-145) mmol/L Potassium 4.0 (3.5-5.1) mmol/L Chloride 104 (98-107) mmol/L Carbon Dioxide 12 L (22-30) mmol/L Anion Gap 25 mmol/L BUN 10 (9-20) mg/dL Creatinine 1.10 (0.66-1.25) mg/dL Est GFR (MDRD) Af Amer >60 (>60 ml/min/1.73 sqM) Est GFR (MDRD) Non-Af >60 (>60 ml/min/1.73 sqM) Glucose 172 H (74-99) mg/dL Calcium 10.2 (8.4-10.2) mg/dL Total Bilirubin 0.4 (0.2-1.3) mg/dL AST 29 (17-59) U/L ALT 29 (21-72) U/L Alkaline Phosphatase 52 (38-126) U/L Total Protein 7.6 (6.3-8.2) g/dL Albumin 5.1 H (3.5-5.0) g/dL Urine Opiates Screen Not Detected (NotDetected) Ur Oxycodone Screen Not Detected (NotDetected) Urine Methadone Screen Not Detected (NotDetected) Ur Propoxyphene Screen Not Detected (NotDetected) Ur Barbiturates Screen Not Detected (NotDetected) Valproic Acid <10.0 ug/mL U Tricyclic Antidepress Not Detected (NotDetected) Ur Phencyclidine Scrn Not Detected (NotDetected) Ur Amphetamines Screen Not Detected (NotDetected) U Methamphetamines Scrn Not Detected (NotDetected) U Benzodiazepines Scrn Not Detected (NotDetected) Urine Cocaine Screen Not Detected (NotDetected) U Marijuana (THC) Screen Detected H (NotDetected) - EKG Data EKG shows normal: sinus rhythm (With sinus arrhythmia, rate 70 bpm), axis ( Rightward), intervals (Normal), QRS complexes (Normal), ST-T waves (Normal) Rate: normal Disposition Clinical Impression: Generalized seizure Disposition: HOME SELF-CARE Condition: Good Instructions: Recurrent Seizures in Adults (ED) Referrals: Nayan Mendoza MD [Primary Care Provider] - 1-2 days
[2017-06-12 00:29] LABS: CH 27.6; HCT 53.4 % (39.0-53.0); HDW 2.49; HGB 16.6 gm/dL (13.0-17.5); MCH 26.9 pg (25.0-35.0); MCHC 31.1 g/dL (31.0-37.0); MCV 86.6 fL (80.0-100.0); Mean Platelet Volume 7.2; RBC 6.17 m/uL (4.30-5.90); RDW 12.4 % (11.5-15.5); WBC 14.7 k/uL (3.8-10.6); WBC (Perox) 13.52
[2017-06-12 00:30] LABS: ALT 29 U/L (21-72); AST 29 U/L (17-59); Alkaline Phosphatase 52 U/L (38-126); Anion Gap 25 mmol/L; Blood Urea Nitrogen 10 mg/dL (9-20); Calcium 10.2 mg/dL (8.4-10.2); Carbon Dioxide 12 mmol/L (22-30); Chloride 104 mmol/L (98-107); Glucose 172 mg/dL (74-99); Non-African American GFR(MDRD) >60 (>60 ml/min/1.73 sqM); Sodium 141 mmol/L (137-145); Total Bilirubin 0.4 mg/dL (0.2-1.3); Total Protein 7.6 g/dL (6.3-8.2)
[2017-06-12 00:39] LABS: Add Differential Manual Differential
[2017-06-12 00:41] LABS: Band Neutrophils % 1 %; Large Platelets Present; Manual Review Performed; Nucleated Red Blood Cells 0 /100 WBC (0-0); Reactive Lymphocytes Present; Total Cells Counted 100
[2017-06-12] MEDS ORDERED: levETIRAcetam 500 MG TAB PO STA (01:50)
[2017-06-12] MEDS ORDERED: DIVALPROEX 250 MG TABLET.DR PO STA (01:50)
[2017-06-12 02:15] VITALS: BP 121/62; PULSE 88; RESP 17
== END 2017-06-12 02:34 | disposition home or self-care (01) ==
LOC: EC 23:44
DX: G40.409 Other generalized epilepsy and epileptic syndromes, not intractable, without status epilepticus (principal); I49.8 Other specified cardiac arrhythmias; F17.200 Nicotine dependence, unspecified, uncomplicated; Z88.5 Allergy status to narcotic agent; Z88.6 Allergy status to analgesic agent; Z88.8 Allergy status to other drugs, medicaments and biological substances; Z91.011 Allergy to milk products
CPT/HCPCS: 36415; 80053; 80164; 80177; 80306; 85025; 93005; 99284

== ENCOUNTER 2017-07-30 21:23 | Emergency (ER) | payer OTHER ==
[2017-07-30 21:27] VITALS: BP 142/81; PULSE 74; RESP 17; TEMP 98.9
[2017-07-30] MEDS ORDERED: AZITHROMYCIN 500 MG TAB PO STA (21:35)
[2017-07-30] MEDS ORDERED: cefTRIAXone 250 MG VIAL IM STA (21:35)
[2017-07-30 21:58] LABS: Appearance,Urine Clear (Clear); Bilirubin,Urine Negative (Negative); Blood,Urine Negative (Negative); Color,Urine Yellow; Glucose,Urine (UA) Negative (Negative); Ketones,Urine Negative (Negative); Leukocyte Esterase,Urine Negative (Negative); Nitrite,Urine Negative (Negative); PH, Urine 8.5 (5.0-8.0); Protein,Urine Trace (Negative); Specific Gravity,Urine 1.015 (1.001-1.035); Urobilinogen,Urine <2.0 mg/dL (<2.0)
--- NOTE | 2017-07-30 22:05 | ED ---
General Adult HPI - General Chief complaint: Recheck/Abnormal Lab/Rx Stated complaint: STD Testing Time Seen by Provider: 07/30/17 21:34 Source: patient, RN notes reviewed Mode of arrival: ambulatory Limitations: no limitations - History of Present Illness Initial comments: 22-year-old male presents to the emergency department with a chief complaint of concern for STD. Girlfriend Was found to have gonorrhea. He states he is here for treatment. He denies any symptoms. He denies any burning or stinging or urination issues. He denies any discharge.Patient denies any recent fever, chills, shortness of breath, chest pain, back pain, abdominal pain, nausea vomiting, numbness or tingling, dysuria or hematuria, constipation or diarrhea, headaches or visual changes, or any other current symptoms. - Related Data Previous Rx's Medication Instructions Recorded Divalproex [Depakote] 750 mg PO TID #90 tablet. 04/05/17 levETIRAcetam [Keppra] 1,000 mg PO TID #90 tab 04/05/17 Allergies Allergy/AdvReac Type Severity Reaction Status Date / Time codeine Allergy Swelling Verified 07/30/17 21:24 ibuprofen Allergy Unknown Verified 07/30/17 21:24 lactose Allergy Unknown Verified 07/30/17 21:24 phenytoin [From Dilantin] Allergy Unknown Verified 07/30/17 21:24 Review of Systems ROS Statement: Those systems with pertinent positive or pertinent negative responses have been documented in the HPI. ROS Other: All systems not noted in ROS Statement are negative. Past Medical History Past Medical History: Seizure Disorder Additional Past Medical History / Comment(s): Narcolepsy History of Any Multi-Drug Resistant Organisms: None Reported Past Surgical History: No Surgical Hx Reported Past Psychological History: ADD/ADHD, Anxiety, Depression Smoking Status: Current some day smoker Past Alcohol Use History: None Reported, Occasional Past Drug Use History: Marijuana General Exam Limitations: no limitations General appearance: alert, in no apparent distress Respiratory exam: Absent: respiratory distress Cardiovascular Exam: Present: regular rate GI/Abdominal exam: Present: soft, normal bowel sounds. Absent: distended, tenderness, guarding, rebound, rigid Neurological exam: Present: alert, oriented X3 Psychiatric exam: Present: normal affect, normal mood Skin exam: Present: warm, dry, intact, normal color. Absent: rash Course Vital Signs 07/30/17 21:24 Temperature 98.9 F Pulse Rate 74 Respiratory 17 Rate Blood Pressure 142/81 O2 Sat by Pulse 99 Oximetry Medical Decision Making - Medical Decision Making 22-year-old male presents for concern for STDs. This time we will prophylactically treat. We discussed follow-up with his results we discussed safe sex we discussed return parameters all questions. Patient stated that he understood and he is agreement this plan. This time he will be discharged. - Lab Data Lab Results 07/30/17 Range/Units 21:35 Urine Color Yellow Urine Appearance Clear (Clear) Urine pH 8.5 H (5.0-8.0) Ur Specific [place] 1.015 (1.001-1.035) Urine Protein Trace H (Negative) Urine Glucose (UA) Negative (Negative) Urine Ketones Negative (Negative) Urine Blood Negative (Negative) Urine Nitrite Negative (Negative) Urine Bilirubin Negative (Negative) Urine Urobilinogen <2.0 (<2.0) mg/dL Ur Leukocyte Esterase Negative (Negative) Disposition Clinical Impression: Concern about STD in male without diagnosis Disposition: HOME SELF-CARE Condition: Stable Instructions: Sexually Transmitted Diseases (ED) Additional Instructions: Please use medication as discussed. Please follow up with family doctor if symptoms have not improved over the next two days. Please return to the emergency room if your symptoms increase or worsen or for any other concerns. Referrals: Nayan Mendoza MD [Primary Care Provider] - 1-2 days Time of Disposition: 22:05
[2017-08-01 11:39] LABS: Chlamydia trachomatis rRNA Not detected (Not detected); Neisseria gonorrhoeae rRNA Not detected (Not detected)
== END 2017-07-30 22:20 | disposition home or self-care (01) ==
LOC: EC 21:23
DX: Z11.3 Encounter for screening for infections with a predominantly sexual mode of transmission (principal); F17.200 Nicotine dependence, unspecified, uncomplicated; Z88.5 Allergy status to narcotic agent; Z88.6 Allergy status to analgesic agent; Z91.011 Allergy to milk products; Z88.8 Allergy status to other drugs, medicaments and biological substances
CPT/HCPCS: 87591; 87491; 81003; 99283; 96372; J0696

== ENCOUNTER 2017-09-30 08:42 | Emergency (ER) | payer OTHER ==
[2017-09-30 08:56] VITALS: BP 132/76; PULSE 78; RESP 18; TEMP 98.7
--- NOTE | 2017-09-30 09:16 | ED ---
Abdominal Pain HPI - General Chief Complaint: Abdominal Pain Stated Complaint: Vomiting Time Seen by Provider: 09/30/17 08:57 Source: patient, RN notes reviewed Mode of arrival: ambulatory Limitations: no limitations - History of Present Illness Initial Comments: 22-year-old male presents emergency Department with multiple complaints. Patient states his been having ongoing dental pain. He was schedule have his wisdom teeth extracted but states that he did not have insurance so he had a rescheduled. He does have insurance now he is an appointment in 2 weeks. Denies any fevers chills, facial swelling states it's his pain is been ongoing. Patient also complains of some nausea better when he eats symptoms of acid reflux. Denies any abdominal pain, diarrhea, constipation. Patient had no prior abdominal surgeries. Patient states this is been ongoing also. - Related Data Previous Rx's Medication Instructions Recorded Divalproex [Depakote] 750 mg PO TID #90 tablet. 04/05/17 levETIRAcetam [Keppra] 1,000 mg PO TID #90 tab 04/05/17 Acetaminophen Tab [Tylenol Tab] 500 mg PO Q6H #30 tablet 09/30/17 Omeprazole 40 mg PO DAILY #14 capsule. 09/30/17 Allergies Allergy/AdvReac Type Severity Reaction Status Date / Time codeine Allergy Swelling Verified 09/30/17 08:56 ibuprofen Allergy Unknown Verified 09/30/17 08:56 lactose Allergy Unknown Verified 09/30/17 08:56 phenytoin [From Dilantin] Allergy Unknown Verified 09/30/17 08:56 Review of Systems ROS Statement: Those systems with pertinent positive or pertinent negative responses have been documented in the HPI. ROS Other: All systems not noted in ROS Statement are negative. Past Medical History Past Medical History: Seizure Disorder Additional Past Medical History / Comment(s): Narcolepsy History of Any Multi-Drug Resistant Organisms: None Reported Past Surgical History: No Surgical Hx Reported Past Psychological History: ADD/ADHD, Anxiety, Depression Smoking Status: Current every day smoker Past Alcohol Use History: None Reported, Occasional Past Drug Use History: Marijuana General Exam Limitations: no limitations General appearance: alert, in no apparent distress Head exam: Present: atraumatic, normocephalic, normal inspection Eye exam: Present: normal appearance, PERRL, EOMI. Absent: scleral icterus, conjunctival injection, periorbital swelling ENT exam: Present: mucous membranes moist, TM's normal bilaterally, normal external ear exam. Absent: normal exam, normal oropharynx (Impacted teeth #1,16 ,17 and 32 no erythema no abscess no signs of infection) Neck exam: Present: normal inspection, full ROM. Absent: tenderness, meningismus, lymphadenopathy Respiratory exam: Present: normal lung sounds bilaterally. Absent: respiratory distress, wheezes, rales, rhonchi, stridor Cardiovascular Exam: Present: regular rate, normal rhythm, normal heart sounds. Absent: systolic murmur, diastolic murmur, rubs, gallop, clicks GI/Abdominal exam: Present: soft, normal bowel sounds. Absent: distended, tenderness, guarding, rebound, rigid Back exam: Absent: CVA tenderness (R), CVA tenderness (L) Course Vital Signs 09/30/17 08:53 Temperature 98.7 F Pulse Rate 78 Respiratory 18 Rate Blood Pressure 132/76 O2 Sat by Pulse 100 Oximetry Medical Decision Making - Medical Decision Making 22-year-old male presented for multiple complaints. Patient has dental pain from impacted teeth there is no signs of infection. Patient given Tylenol as he states he is ALLERGIC to ibuprofen. Patient also complains that he's had nausea and acid reflux. Patient has no abdominal pain. Patient's vitals are stable. Patient will be given ZOFRAN. HE STATES CURRENTLY HE HAS NO NAUSEA. PATIENT AGREES TO PLAN HE IS ADVISED TO FOLLOW-UP WITH HIS PRIMARY CARE PHYSICIAN AND DENTIST FOR RECHECKS AND FURTHER COMPLAINTS. Disposition Clinical Impression: GERD (gastroesophageal reflux disease), Impacted teeth Disposition: HOME SELF-CARE Condition: Stable Instructions: Toothache (ED) Additional Instructions: Please return to the Emergency Department if symptoms worsen or any other concerns. Prescriptions: Acetaminophen Tab [Tylenol Tab] 500 mg PO Q6H #30 tablet Omeprazole 40 mg PO DAILY #14 capsule.dr Referrals: Nayan Mendoza MD [Primary Care Provider] - 1-2 days Time of Disposition: 09:16
== END 2017-09-30 09:30 | disposition home or self-care (01) ==
LOC: EC 08:42
DX: K21.9 Gastro-esophageal reflux disease without esophagitis (principal); K01.1 Impacted teeth; Z88.5 Allergy status to narcotic agent; Z88.6 Allergy status to analgesic agent; Z91.040 Latex allergy status; Z88.8 Allergy status to other drugs, medicaments and biological substances
CPT/HCPCS: 99283

== ENCOUNTER 2017-10-11 22:51 | Emergency (ER) | payer OTHER ==
[2017-10-11 22:57] VITALS: TEMP 98.3
[2017-10-11] MEDS ORDERED: SODIUM CHLORIDE 0.9% 1,000 ML IV STA ×2 (23:00)
[2017-10-11] MEDS ORDERED: levETIRAcetam IV 1,000 MG in SALINE 1 100ML.BAG IVPB STA (23:00)
--- NOTE | 2017-10-11 23:11 | ED ---
Seizure HPI - General Chief Complaint: Seizure Stated Complaint: Seizure Time Seen by Provider: 10/11/17 23:00 Source: patient, RN notes reviewed, old records reviewed Mode of arrival: ambulatory Limitations: no limitations - History of Present Illness Initial Comments: This patient is a 22-year-old male with history of seizures and non compliant on medication. Patient reports he's been out of his medication for months. He had a seizure Yesterday, witnessed by girlfriend. He did not hit his head. He reports he refused EMS transport. Patient states he was feeling ill since then. HE does not remember his neurologist. He states he has an appt with PCP on . Denies fever, chills, abdominal pain, nausea, vomiting - Related Data Previous Rx's Medication Instructions Recorded Acetaminophen Tab [Tylenol Tab] 500 mg PO Q6H #30 tablet 09/30/17 Omeprazole 40 mg PO DAILY #14 capsule. 09/30/17 Ondansetron Odt [Zofran Odt] 4 mg PO Q8HR PRN #10 tab 09/30/17 levETIRAcetam [Keppra] 750 mg PO BID #20 tab 10/12/17 Allergies Allergy/AdvReac Type Severity Reaction Status Date / Time codeine Allergy Swelling Verified 10/11/17 22:57 ibuprofen Allergy Unknown Verified 10/11/17 22:57 lactose Allergy Unknown Verified 10/11/17 22:57 phenytoin [From Dilantin] Allergy Unknown Verified 10/11/17 22:57 Review of Systems ROS Statement: Those systems with pertinent positive or pertinent negative responses have been documented in the HPI. ROS Other: All systems not noted in ROS Statement are negative. Past Medical History Past Medical History: Seizure Disorder Additional Past Medical History / Comment(s): Narcolepsy History of Any Multi-Drug Resistant Organisms: None Reported Past Surgical History: No Surgical Hx Reported Past Psychological History: ADD/ADHD, Anxiety, Depression Smoking Status: Current every day smoker Past Alcohol Use History: None Reported, Occasional Past Drug Use History: Marijuana General Exam - General Exam Comments Initial Comments: This is an alert and oriented 22 year old male. No distress. Limitations: no limitations General appearance: alert, in no apparent distress Head exam: Present: atraumatic, normocephalic, normal inspection Eye exam: Present: normal appearance, PERRL, EOMI. Absent: scleral icterus, conjunctival injection, periorbital swelling ENT exam: Present: normal exam, mucous membranes moist Neck exam: Present: normal inspection. Absent: tenderness, meningismus, lymphadenopathy Respiratory exam: Present: normal lung sounds bilaterally. Absent: respiratory distress, wheezes, rales, rhonchi, stridor Cardiovascular Exam: Present: regular rate, normal rhythm, normal heart sounds. Absent: systolic murmur, diastolic murmur, rubs, gallop, clicks GI/Abdominal exam: Present: soft, normal bowel sounds. Absent: distended, tenderness, guarding, rebound, rigid Extremities exam: Present: normal inspection, full ROM, normal capillary refill. Absent: tenderness, pedal edema, joint swelling, calf tenderness Back exam: Present: normal inspection Neurological exam: Present: alert, oriented X3, CN II-XII intact, normal gait Psychiatric exam: Present: normal affect, normal mood Skin exam: Present: warm, dry, intact, normal color. Absent: rash Course Vital Signs 10/11/17 10/12/17 22:55 01:20 Temperature 98.3 F Pulse Rate 66 49 L Respiratory 20 18 Rate Blood Pressure 135/60 109/56 O2 Sat by Pulse 98 99 Oximetry Medical Decision Making - Medical Decision Making 22 year old male with long history of seizures and non compliant with medications presents after seizure yesterday. States he has not been taking keppra and depakote for months. Patient does not remember his depakote dose. Patient reports that he needs refills to get started back on his medications. PAtient labs were normal. No focal or lateralizing neurofindings. Otherwise patient appears well. Given loading dose of keppra in ED. Discussed will restart keppra and needs to follow up with neurology and PCP for depakote dose. All questions answered and return parameters discussed. - Lab Data Result diagrams: 10/11/17 23:13 10/11/17 23:13 Lab Results 10/11/17 10/11/17 10/11/17 Range/Units 23:13 23:13 23:13 WBC 7.9 (3.8-10.6) k/uL RBC 5.29 (4.30-5.90) m/uL Hgb 14.3 (13.0-17.5) gm/dL Hct 42.5 (39.0-53.0) % MCV 80.4 (80.0-100.0) fL MCH 27.0 (25.0-35.0) pg MCHC 33.6 (31.0-37.0) g/dL RDW 12.7 (11.5-15.5) % Plt Count 213 (150-450) k/uL Neutrophils % 48 % Lymphocytes % 41 % Monocytes % 8 % Eosinophils % 1 % Basophils % 0 % Neutrophils # 3.8 (1.3-7.7) k/uL Lymphocytes # 3.2 (1.0-4.8) k/uL Monocytes # 0.6 (0-1.0) k/uL Eosinophils # 0.1 (0-0.7) k/uL Basophils # 0.0 (0-0.2) k/uL Sodium 144 (137-145) mmol/L Potassium 3.8 (3.5-5.1) mmol/L Chloride 105 (98-107) mmol/L Carbon Dioxide 27 (22-30) mmol/L Anion Gap 12 mmol/L BUN 13 (9-20) mg/dL Creatinine 0.80 (0.66-1.25) mg/dL Est GFR (CKD-EPI)AfAm >90 (>60 ml/min/1.73 sqM) Est GFR (CKD-EPI)NonAf >90 (>60 ml/min/1.73 sqM) Glucose 87 (74-99) mg/dL Calcium 9.6 (8.4-10.2) mg/dL Total Bilirubin 0.5 (0.2-1.3) mg/dL AST 35 (17-59) U/L ALT 23 (21-72) U/L Alkaline Phosphatase 54 (38-126) U/L Total Protein 7.0 (6.3-8.2) g/dL Albumin 4.3 (3.5-5.0) g/dL Urine Color Yellow Urine Appearance Clear (Clear) Urine pH 6.0 (5.0-8.0) Ur Specific [place] 1.019 (1.001-1.035) Urine Protein Trace H (Negative) Urine Glucose (UA) Negative (Negative) Urine Ketones Negative (Negative) Urine Blood Negative (Negative) Urine Nitrite Negative (Negative) Urine Bilirubin Negative (Negative) Urine Urobilinogen 2.0 (<2.0) mg/dL Ur Leukocyte Esterase Negative (Negative) Urine Opiates Screen Not Detected (NotDetected) Ur Oxycodone Screen Not Detected (NotDetected) Urine Methadone Screen Not Detected (NotDetected) Ur Propoxyphene Screen Not Detected (NotDetected) Ur Barbiturates Screen Not Detected (NotDetected) Valproic Acid <10.0 ug/mL U Tricyclic Antidepress Not Detected (NotDetected) Ur Phencyclidine Scrn Not Detected (NotDetected) Ur Amphetamines Screen Not Detected (NotDetected) U Methamphetamines Scrn Not Detected (NotDetected) U Benzodiazepines Scrn Not Detected (NotDetected) Urine Cocaine Screen Not Detected (NotDetected) U Marijuana (THC) Screen Detected H (NotDetected) 10/11/17 23:28 Juices or murmurs instructed with sinus arrhythmia. Normal EKG. Ventricular rate 62 beats were minute. [place] interval 140 ms. QRS duration 96 most seconds. QT QTC 398/403 ms. - Radiology Data Radiology results: report reviewed CXR is normal Disposition Clinical Impression: Generalized seizure, Non-compliant patient Disposition: HOME SELF-CARE Condition: Good Instructions: Recurrent Seizures in Adults (ED) Additional Instructions: Patient cannot drive. Patient needs to follow-up with neurologist and primary care provider. Return to the emergency department if any alarming signs or symptoms occur. Prescriptions: levETIRAcetam [Keppra] 750 mg PO BID #20 tab Referrals: Nayan Mendoza MD [Primary Care Provider] - 1-2 days Time of Disposition: 01:01
[2017-10-11 23:34] LABS: Appearance,Urine Clear (Clear); Bilirubin,Urine Negative (Negative); Blood,Urine Negative (Negative); Color,Urine Yellow; Glucose,Urine (UA) Negative (Negative); Ketones,Urine Negative (Negative); Leukocyte Esterase,Urine Negative (Negative); Nitrite,Urine Negative (Negative); Protein,Urine Trace (Negative); Specific Gravity,Urine 1.019 (1.001-1.035)
[2017-10-11 23:37] LABS: ALT 23 U/L (21-72); AST 35 U/L (17-59); Albumin 4.3 g/dL (3.5-5.0); Alkaline Phosphatase 54 U/L (38-126); Anion Gap 12 mmol/L; Blood Urea Nitrogen 13 mg/dL (9-20); Calcium 9.6 mg/dL (8.4-10.2); Carbon Dioxide 27 mmol/L (22-30); Chloride 105 mmol/L (98-107); Glucose 87 mg/dL (74-99); Potassium 3.8 mmol/L (3.5-5.1); Sodium 144 mmol/L (137-145); Total Bilirubin 0.5 mg/dL (0.2-1.3)
[2017-10-11 23:42] LABS: Valproic Acid (Depakene) <10.0 ug/mL
--- NOTE | 2017-10-11 23:42 | XR ---
EXAM: XR Chest, 2 Views CLINICAL HISTORY: Seizure activity yesterday Reason: Pain TECHNIQUE: Frontal and lateral views of the chest. COMPARISON: Chest radiograph on 11/03/2016 FINDINGS: Hardware: None. Abdomen: Nonobstructive bowel gas pattern. No free air. Bones: Normal. Soft tissues: Normal. Lower chest: Normal. IMPRESSION: No acute disease identified.
[2017-10-11 23:52] LABS: Amphetamine Screen,Urine Not Detected (NotDetected); Barbiturate Screen,Urine Not Detected (NotDetected); Benzodiazepines Screen,Urine Not Detected (NotDetected); Cocaine Screen,Urine Not Detected (NotDetected); Methadone Screen, Urine Not Detected (NotDetected); Opiate Screen,Urine Not Detected (NotDetected); Oxycodone Screen, Urine Not Detected (NotDetected); Phencyclidine Screen,Urine Not Detected (NotDetected); Tricyclic Antidepressant,Urine Not Detected (NotDetected); Urn Cannabinoid Scrn Detected (NotDetected)
[2017-10-12 00:22] LABS: Basophils % (A) 0 %; Eosinophils # (A) 0.1 k/uL (0-0.7); Eosinophils % (A) 1 %; HCT 42.5 % (39.0-53.0); HGB 14.3 gm/dL (13.0-17.5); Lymphocytes # (A) 3.2 k/uL (1.0-4.8); Lymphocytes % (A) 41 %; MCHC 33.6 g/dL (31.0-37.0); MCV 80.4 fL (80.0-100.0); Mean Platelet Volume 7.4; Monocytes # (A) 0.6 k/uL (0-1.0); Monocytes % (A) 8 %; Neutrophils # (A) 3.8 k/uL (1.3-7.7); Neutrophils % (A) 48 %; Platelet Count 213 k/uL (150-450); RBC 5.29 m/uL (4.30-5.90); RDW 12.7 % (11.5-15.5); WBC 7.9 k/uL (3.8-10.6)
[2017-10-12 01:22] VITALS: BP 109/56; PULSE 49; RESP 18
== END 2017-10-12 01:23 | disposition home or self-care (01) ==
LOC: EC 22:51
DX: R56.9 Unspecified convulsions (principal); Z91.14 Patient's other noncompliance with medication regimen; F17.200 Nicotine dependence, unspecified, uncomplicated; Z88.5 Allergy status to narcotic agent; Z88.6 Allergy status to analgesic agent; Z91.011 Allergy to milk products; Z88.8 Allergy status to other drugs, medicaments and biological substances
CPT/HCPCS: 36415; 93005; 80164; 80053; 80177; 85025; 81003; 80306; 71046; 99284; 96365; 96361; J1953

== ENCOUNTER 2017-10-12 22:26 | Emergency (ER) | payer OTHER ==
[2017-10-12] MEDS ORDERED: SODIUM CHLORIDE 0.9% 1,000 ML IV ONE (23:39)
[2017-10-12 23:45] LABS: Basophils % (A) 1 %; Eosinophils # (A) 0.1 k/uL (0-0.7); Eosinophils % (A) 1 %; HCT 42.1 % (39.0-53.0); Lymphocytes # (A) 2.5 k/uL (1.0-4.8); Lymphocytes % (A) 48 %; MCH 26.8 pg (25.0-35.0); MCHC 33.3 g/dL (31.0-37.0); MCV 80.5 fL (80.0-100.0); Mean Platelet Volume 7.2; Monocytes # (A) 0.4 k/uL (0-1.0); Monocytes % (A) 7 %; Neutrophils # (A) 2.2 k/uL (1.3-7.7); Neutrophils % (A) 42 %; Platelet Count 229 k/uL (150-450); RBC 5.23 m/uL (4.30-5.90); RDW 12.8 % (11.5-15.5); WBC 5.2 k/uL (3.8-10.6)
[2017-10-12 23:56] LABS: Anion Gap 15 mmol/L; Blood Urea Nitrogen 7 mg/dL (9-20); Calcium 9.5 mg/dL (8.4-10.2); Carbon Dioxide 26 mmol/L (22-30); Chloride 108 mmol/L (98-107); Glucose 84 mg/dL (74-99); Potassium 3.4 mmol/L (3.5-5.1); Sodium 149 mmol/L (137-145)
[2017-10-13] LABS: Alcohol 169 mg/dL
--- NOTE | 2017-10-13 00:18 | ED ---
Alcohol HPI - General Chief Complaint: Alcohol Stated Complaint: ETOH Time Seen by Provider: 10/12/17 22:31 Source: patient Mode of arrival: EMS Limitations: altered mental status - History of Present Illness Initial Comments: This patient is 22-year-old man who comes to be evaluated for alcohol intoxication and feeling shaky. He reportedly has history of seizures. In the past when he has felt shaky this has preceded having a seizure. He felt he needed to be seen today for this reason. He also has been having some nausea and a little bit of vomiting. Patient did not have any recent fall or trauma. MD Complaint: alcohol intoxication Last Drink: just [employer] -: hour(s) Recent Trauma: No Associated Symptoms: other ([place] shaky) Treatments Prior to Arrival: none - Related Data Previous Rx's Medication Instructions Recorded Acetaminophen Tab [Tylenol Tab] 500 mg PO Q6H #30 tablet 09/30/17 Omeprazole 40 mg PO DAILY #14 capsule. 09/30/17 Ondansetron Odt [Zofran Odt] 4 mg PO Q8HR PRN #10 tab 09/30/17 levETIRAcetam [Keppra] 750 mg PO BID #20 tab 10/12/17 Allergies Allergy/AdvReac Type Severity Reaction Status Date / Time codeine Allergy Swelling Verified 10/12/17 22:49 ibuprofen Allergy Unknown Verified 10/12/17 22:49 lactose Allergy Unknown Verified 10/12/17 22:49 phenytoin [From Dilantin] Allergy Unknown Verified 10/12/17 22:49 Review of Systems ROS Statement: Those systems with pertinent positive or pertinent negative responses have been documented in the HPI. ROS Other: All systems not noted in ROS Statement are negative. Constitutional: Denies: fever, chills, weakness Eyes: Denies: vision change Respiratory: Denies: cough, dyspnea Cardiovascular: Denies: chest pain, palpitations Gastrointestinal: Denies: abdominal pain, vomiting, diarrhea Musculoskeletal: Denies: back pain Skin: Denies: rash Neurological: Denies: headache, weakness, numbness, paresthesias, confusion Past Medical History Past Medical History: Seizure Disorder Additional Past Medical History / Comment(s): Narcolepsy History of Any Multi-Drug Resistant Organisms: None Reported Past Surgical History: No Surgical Hx Reported Past Psychological History: ADD/ADHD, Anxiety, Depression Smoking Status: Current every day smoker Past Alcohol Use History: None Reported, Occasional Past Drug Use History: Marijuana General Exam Limitations: altered mental status General appearance: alert, in no apparent distress, appears intoxicated Head exam: Present: atraumatic, normocephalic, normal inspection Eye exam: Present: normal appearance, PERRL, EOMI, nystagmus. Absent: scleral icterus, conjunctival injection Neck exam: Present: normal inspection, full ROM Respiratory exam: Present: normal lung sounds bilaterally. Absent: respiratory distress, wheezes, rales, rhonchi, stridor Cardiovascular Exam: Present: regular rate, normal rhythm, normal heart sounds. Absent: systolic murmur, diastolic murmur, rubs, gallop GI/Abdominal exam: Present: soft. Absent: distended, tenderness, guarding, rebound, mass Extremities exam: Present: normal inspection, normal capillary refill. Absent: pedal edema, calf tenderness Back exam: Present: normal inspection. Absent: CVA tenderness (R), CVA tenderness (L), vertebral tenderness Neurological exam: Present: alert, oriented X3. Absent: motor sensory deficit Skin exam: Present: warm, dry, intact, normal color. Absent: rash Course Vital Signs 10/12/17 10/12/17 10/13/17 22:30 23:23 00:22 Temperature 97.5 F L 97.8 F Pulse Rate 63 52 L 77 Respiratory 18 14 18 Rate Blood Pressure 114/75 91/51 111/56 O2 Sat by Pulse 100 98 98 Oximetry Medical Decision Making - Lab Data Result diagrams: 10/12/17 23:16 10/12/17 23:16 Lab Results 10/12/17 10/12/17 Range/Units 23:16 23:16 WBC 5.2 (3.8-10.6) k/uL RBC 5.23 (4.30-5.90) m/uL Hgb 14.0 (13.0-17.5) gm/dL Hct 42.1 (39.0-53.0) % MCV 80.5 (80.0-100.0) fL MCH 26.8 (25.0-35.0) pg MCHC 33.3 (31.0-37.0) g/dL RDW 12.8 (11.5-15.5) % Plt Count 229 (150-450) k/uL Neutrophils % 42 % Lymphocytes % 48 % Monocytes % 7 % Eosinophils % 1 % Basophils % 1 % Neutrophils # 2.2 (1.3-7.7) k/uL Lymphocytes # 2.5 (1.0-4.8) k/uL Monocytes # 0.4 (0-1.0) k/uL Eosinophils # 0.1 (0-0.7) k/uL Basophils # 0.0 (0-0.2) k/uL Sodium 149 H (137-145) mmol/L Potassium 3.4 L (3.5-5.1) mmol/L Chloride 108 H (98-107) mmol/L Carbon Dioxide 26 (22-30) mmol/L Anion Gap 15 mmol/L BUN 7 L (9-20) mg/dL Creatinine 0.80 (0.66-1.25) mg/dL Est GFR (CKD-EPI)AfAm >90 (>60 ml/min/1.73 sqM) Est GFR (CKD-EPI)NonAf >90 (>60 ml/min/1.73 sqM) Glucose 84 (74-99) mg/dL Calcium 9.5 (8.4-10.2) mg/dL Serum Alcohol 169 mg/dL Disposition Clinical Impression: Alcoholic intoxication Disposition: HOME SELF-CARE Condition: Fair Instructions: Alcohol Intoxication (ED) Referrals: None,Stated [Primary Care Provider] - 1-2 days
[2017-10-13 00:23] VITALS: BP 111/56; PULSE 77; RESP 18; TEMP 97.8
== END 2017-10-13 00:34 | disposition home or self-care (01) ==
LOC: EC 22:26
DX: F10.129 Alcohol abuse with intoxication, unspecified (principal); F17.200 Nicotine dependence, unspecified, uncomplicated; Z88.5 Allergy status to narcotic agent; Z88.6 Allergy status to analgesic agent; Z88.8 Allergy status to other drugs, medicaments and biological substances; Z91.011 Allergy to milk products
CPT/HCPCS: 36415; 80048; 80320; 85025; 96360; 99284

== ENCOUNTER 2017-10-13 09:55 | Emergency (ER) | payer OTHER ==
[2017-10-13 10:15] VITALS: TEMP 98.8
[2017-10-13] MEDS ORDERED: ONDANSETRON 4 MG/2 ML VIAL IVP STA (11:19)
[2017-10-13] MEDS ORDERED: SODIUM CHLORIDE 0.9% 1,000 ML IV STA (11:19)
--- NOTE | 2017-10-13 11:22 | ED ---
General Adult HPI - General Chief complaint: Abdominal Pain Stated complaint: VOMITING Time Seen by Provider: 10/13/17 11:12 Source: patient, RN notes reviewed Mode of arrival: ambulatory Limitations: no limitations - History of Present Illness Initial comments: 22-year-old male presents to the emergency department with a chief complaint of nausea and vomiting. He states that he drank about 4 beers last night. He was seen here for nausea vomiting. He states that he went home and he continues to have nausea vomiting. Patient states no fever or chills. Patient denies alcoholism. Patient states that he just cannot keep anything down and he keeps just vomiting up yellow. Patient denies any other symptoms at this time. He states he is not really having much abdominal pain may be a little to the center of the abdomen but nothing bad. He states that he is just concerned due to the continued vomiting.Patient denies any recent fever, chills, shortness of breath, chest pain, back pain, numbness or tingling, dysuria or hematuria, constipation or diarrhea, headaches or visual changes, or any other current symptoms. - Related Data Previous Rx's Medication Instructions Recorded Acetaminophen Tab [Tylenol Tab] 500 mg PO Q6H #30 tablet 09/30/17 Omeprazole 40 mg PO DAILY #14 capsule. 09/30/17 Ondansetron Odt [Zofran Odt] 4 mg PO Q8HR PRN #10 tab 09/30/17 levETIRAcetam [Keppra] 750 mg PO BID #20 tab 10/12/17 Ondansetron Odt [Zofran ODT] 4 mg PO Q8HR PRN #20 tab 10/13/17 Allergies Allergy/AdvReac Type Severity Reaction Status Date / Time codeine Allergy Swelling Verified 10/13/17 10:55 ibuprofen Allergy Unknown Verified 10/13/17 10:55 lactose Allergy Unknown Verified 10/13/17 10:55 phenytoin [From Dilantin] Allergy Unknown Verified 10/13/17 10:55 Review of Systems ROS Statement: Those systems with pertinent positive or pertinent negative responses have been documented in the HPI. ROS Other: All systems not noted in ROS Statement are negative. Past Medical History Past Medical History: Seizure Disorder Additional Past Medical History / Comment(s): Narcolepsy History of Any Multi-Drug Resistant Organisms: None Reported Past Surgical History: No Surgical Hx Reported Past Psychological History: ADD/ADHD, Anxiety, Depression Smoking Status: Current every day smoker Past Alcohol Use History: None Reported, Occasional Past Drug Use History: Marijuana General Exam Limitations: no limitations General appearance: alert, in no apparent distress ENT exam: Present: normal exam, mucous membranes moist Neck exam: Present: normal inspection. Absent: tenderness, meningismus, lymphadenopathy Respiratory exam: Present: normal lung sounds bilaterally. Absent: respiratory distress, wheezes, rales, rhonchi, stridor Cardiovascular Exam: Present: regular rate, normal rhythm, normal heart sounds. Absent: systolic murmur, diastolic murmur, rubs, gallop, clicks GI/Abdominal exam: Present: soft, normal bowel sounds. Absent: distended, tenderness, guarding, rebound, rigid Neurological exam: Present: alert, oriented X3 Psychiatric exam: Present: normal affect, normal mood Skin exam: Present: warm, dry, intact, normal color. Absent: rash Course Vital Signs 10/13/17 10/13/17 10:13 11:33 Temperature 98.8 F Pulse Rate 54 L 61 Respiratory 18 16 Rate Blood Pressure 126/58 99/49 O2 Sat by Pulse 100 99 Oximetry Medical Decision Making - Medical Decision Making 22-year-old male presents to the emergency department with a chief complaint of nausea and vomiting. At this time patient's nausea and vomiting has improved. Lab work is been reviewed that does show some dehydration. We did give him some fluids. We will write him some Zofran for home. We discussed return parameters and follow-up and all questions. Patient stated that he understood he is given an. He will be discharged. - Lab Data Result diagrams: 10/13/17 11:30 10/13/17 11:30 Lab Results 10/13/17 10/13/17 Range/Units 11:30 11:30 WBC 7.3 (3.8-10.6) k/uL RBC 5.41 (4.30-5.90) m/uL Hgb 15.1 (13.0-17.5) gm/dL Hct 43.3 (39.0-53.0) % MCV 80.0 (80.0-100.0) fL MCH 27.9 (25.0-35.0) pg MCHC 34.8 (31.0-37.0) g/dL RDW 12.6 (11.5-15.5) % Plt Count 237 (150-450) k/uL Neutrophils % 79 % Lymphocytes % 15 % Monocytes % 4 % Eosinophils % 2 % Basophils % 0 % Neutrophils # 5.7 (1.3-7.7) k/uL Lymphocytes # 1.1 (1.0-4.8) k/uL Monocytes # 0.3 (0-1.0) k/uL Eosinophils # 0.1 (0-0.7) k/uL Basophils # 0.0 (0-0.2) k/uL Sodium 149 H (137-145) mmol/L Potassium 4.0 (3.5-5.1) mmol/L Chloride 109 H (98-107) mmol/L Carbon Dioxide 21 L (22-30) mmol/L Anion Gap 19 mmol/L BUN 15 (9-20) mg/dL Creatinine 0.80 (0.66-1.25) mg/dL Est GFR (CKD-EPI)AfAm >90 (>60 ml/min/1.73 sqM) Est GFR (CKD-EPI)NonAf >90 (>60 ml/min/1.73 sqM) Glucose 58 L (74-99) mg/dL Calcium 9.8 (8.4-10.2) mg/dL Total Bilirubin 0.6 (0.2-1.3) mg/dL AST 58 (17-59) U/L ALT 29 (21-72) U/L Alkaline Phosphatase 60 (38-126) U/L Total Protein 6.9 (6.3-8.2) g/dL Albumin 4.3 (3.5-5.0) g/dL Amylase 69 (30-110) U/L Lipase 43 (23-300) U/L Disposition Clinical Impression: Nausea & vomiting, Dehydration Disposition: HOME SELF-CARE Condition: Stable Instructions: Acute Nausea and Vomiting (ED) Additional Instructions: Please use medication as discussed. Please follow up with family doctor if symptoms have not improved over the next two days. Please return to the emergency room if your symptoms increase or worsen or for any other concerns. Prescriptions: Ondansetron Odt [Zofran ODT] 4 mg PO Q8HR PRN #20 tab PRN Reason: Nausea Referrals: Nayan Mendoza MD [Primary Care Provider] - 1-2 days Time of Disposition: 12:25
[2017-10-13 11:35] VITALS: RESP 16
[2017-10-13 11:47] LABS: Basophils % (A) 0 %; Eosinophils # (A) 0.1 k/uL (0-0.7); Eosinophils % (A) 2 %; HCT 43.3 % (39.0-53.0); HGB 15.1 gm/dL (13.0-17.5); Lymphocytes # (A) 1.1 k/uL (1.0-4.8); Lymphocytes % (A) 15 %; MCH 27.9 pg (25.0-35.0); MCHC 34.8 g/dL (31.0-37.0); Mean Platelet Volume 6.7; Monocytes # (A) 0.3 k/uL (0-1.0); Monocytes % (A) 4 %; Neutrophils # (A) 5.7 k/uL (1.3-7.7); Neutrophils % (A) 79 %; Platelet Count 237 k/uL (150-450); RBC 5.41 m/uL (4.30-5.90); RDW 12.6 % (11.5-15.5); WBC 7.3 k/uL (3.8-10.6)
[2017-10-13 12:05] LABS: ALT 29 U/L (21-72); AST 58 U/L (17-59); Albumin 4.3 g/dL (3.5-5.0); Alkaline Phosphatase 60 U/L (38-126); Amylase 69 U/L (30-110); Anion Gap 19 mmol/L; Blood Urea Nitrogen 15 mg/dL (9-20); Calcium 9.8 mg/dL (8.4-10.2); Carbon Dioxide 21 mmol/L (22-30); Chloride 109 mmol/L (98-107); Glucose 58 mg/dL (74-99); Lipase 43 U/L (23-300); Sodium 149 mmol/L (137-145); Total Bilirubin 0.6 mg/dL (0.2-1.3); Total Protein 6.9 g/dL (6.3-8.2)
[2017-10-13 12:38] VITALS: BP 100/54; PULSE 88
== END 2017-10-13 12:38 | disposition home or self-care (01) ==
LOC: EC 09:55
DX: R11.2 Nausea with vomiting, unspecified (principal); E86.0 Dehydration; F17.200 Nicotine dependence, unspecified, uncomplicated; Z88.5 Allergy status to narcotic agent; Z88.6 Allergy status to analgesic agent; Z88.8 Allergy status to other drugs, medicaments and biological substances; Z91.011 Allergy to milk products
CPT/HCPCS: 99284; 96374; 96361; 36415; 80053; 82150; 83690; 85025; J2405

== ENCOUNTER 2017-11-15 01:02 | Emergency (ER) | payer OTHER ==
[2017-11-15 01:15] VITALS: BP 130/71; PULSE 104; RESP 20; TEMP 99.4
--- NOTE | 2017-11-15 01:37 | ED ---
General Adult HPI - General Chief complaint: Shortness of Breath Stated complaint: right rib pain Time Seen by Provider: 11/15/17 01:28 Source: patient, RN notes reviewed Mode of arrival: ambulatory Limitations: no limitations - History of Present Illness Initial comments: This is a 22-year-old male who presents to the emergency department with chief complaint of right rib pain. Patient states that for the past week he experiences a sharp pain in his right lower ribs/upper abdominal area when he takes a deep breath in and when he leans forward. He denies any chest pain or shortness of breath, fevers or chills, abdominal pain, nausea or vomiting, diarrhea or constipation, dysuria or hematuria. He denies any recent hospitalizations or surgeries, recent travel. Denies any specific injuries or trauma. - Related Data Previous Rx's Medication Instructions Recorded Acetaminophen Tab [Tylenol Tab] 500 mg PO Q6H #30 tablet 09/30/17 Omeprazole 40 mg PO DAILY #14 capsule. 09/30/17 Ondansetron Odt [Zofran Odt] 4 mg PO Q8HR PRN #10 tab 09/30/17 levETIRAcetam [Keppra] 750 mg PO BID #20 tab 10/12/17 Ondansetron Odt [Zofran ODT] 4 mg PO Q8HR PRN #20 tab 10/13/17 Allergies Allergy/AdvReac Type Severity Reaction Status Date / Time codeine Allergy Swelling Verified 10/13/17 10:55 ibuprofen Allergy Unknown Verified 10/13/17 10:55 lactose Allergy Unknown Verified 10/13/17 10:55 phenytoin [From Dilantin] Allergy Unknown Verified 10/13/17 10:55 Review of Systems ROS Statement: Those systems with pertinent positive or pertinent negative responses have been documented in the HPI. ROS Other: All systems not noted in ROS Statement are negative. Past Medical History Past Medical History: Seizure Disorder Additional Past Medical History / Comment(s): Narcolepsy History of Any Multi-Drug Resistant Organisms: None Reported Past Surgical History: No Surgical Hx Reported Past Psychological History: ADD/ADHD, Anxiety, Depression Smoking Status: Current every day smoker Past Alcohol Use History: Occasional Past Drug Use History: Marijuana General Exam - General Exam Comments Initial Comments: General: Awake and alert, well-developed; in no apparent distress. HEENT: Head atraumatic, normocephalic. Pupils are equal, round and reactive to light. Extraocular movements intact. Oropharynx moist without erythema or exudate. Neck: Supple. Normal ROM. Cardiovascular: Regular rate and rhythm. No murmurs, rubs or gallops. Chest symmetrical. Tenderness on palpation of right inferior anterior/lateral ribs. Respiratory: Lungs clear to auscultation bilaterally. No wheezes, rales or rhonchi. Normal respiratory effort with no use of accessory muscles. Abdomen: Soft, non-tender, non-distended. No rigidity, rebound or guarding. Normal bowel sounds in all 4 quadrants. Musculoskeletal: Normal ROM, no tenderness bilateral upper and lower extremities. Ambulating normally. Skin: [place], warm and dry without rashes or lesions. Neurological: Alert and oriented x3. CN II-XII grossly intact. Speech is fluent and answers are appropriate. No focal neuro deficits. Psychiatric: Normal mood and affect. No overt signs of depression or anxiety noted. Limitations: no limitations Course Vital Signs 11/15/17 01:13 Temperature 99.4 F Pulse Rate 104 H Respiratory 20 Rate Blood Pressure 130/71 O2 Sat by Pulse 99 Oximetry Medical Decision Making - Medical Decision Making This is a 22-year-old male who presents to the emergency department chief complaint of right rib pain 1 week. Patient states that pain is made worse with taking a deep breath and with leaning forward. On physical examination, there is tenderness on palpation of right sided inferior ribs. Pain is reproducible and increases with movement. Patient likely suffering from intercostal muscle strain or chondritis. Patient has no other complaints other than pain. He denies any specific injury or trauma. Denies cough or difficulty breathing. Chest and right rib x-ray was obtained. This revealed no evidence for pleural effusion, pneumonia, pneumothorax or fractured ribs. Patient's vital signs are stable and he is in no acute distress. He will be discharged home at this time. He is in agreement with plan and voices understanding. All questions were answered. - Radiology Data Radiology results: report reviewed X-ray right ribs with PA chest findings: Heart and mediastinum are normal. Lungs are clear. Diaphragm is normal. There is no sign of pleural effusion or pneumothorax. The right ribs appear intact. Conclusion: Normal right rib exam. Normal chest. Disposition Clinical Impression: Rib pain on right side Disposition: HOME SELF-CARE Condition: Good Instructions: Musculoskeletal Pain (ED) Additional Instructions: Please rest, ice and take Tylenol as needed for pain. Please follow up with primary care provider within 1-2 days. Return to emergency department if symptoms should worsen or any concerns arise. Is patient prescribed a controlled substance at d/c from ED?: No Referrals: Nayan Mendoza MD [Primary Care Provider] - 1-2 days Time of Disposition: 02:20
--- NOTE | 2017-11-15 02:09 | XR ---
History right-sided rib pain. Comparison none. Technique 5 views. FINDINGS: Heart and mediastinum are normal. Lungs are clear. Diaphragm is normal. There is no sign of pleural e ffusion or pneumothorax. The right ribs appear intact. CONCLUSION: Normal right rib exam. Normal chest.
== END 2017-11-15 02:32 | disposition home or self-care (01) ==
LOC: EC 01:02
DX: R07.81 Pleurodynia (principal); R10.11 Right upper quadrant pain; F17.200 Nicotine dependence, unspecified, uncomplicated; Z88.5 Allergy status to narcotic agent; Z88.6 Allergy status to analgesic agent; Z88.8 Allergy status to other drugs, medicaments and biological substances; Z91.011 Allergy to milk products
CPT/HCPCS: 99284

== ENCOUNTER 2017-11-27 11:52 | Emergency (ER) | payer OTHER ==
[2017-11-27 11:56] VITALS: BP 112/80; PULSE 90; RESP 20; TEMP 98.2
--- NOTE | 2017-11-27 12:38 | ED ---
General Adult HPI - General Chief complaint: Skin/Abscess/Foreign Body Stated complaint: POSS SPIDER BITE IN BACK Time Seen by Provider: 11/27/17 12:09 Source: patient, RN notes reviewed Mode of arrival: ambulatory Limitations: no limitations - History of Present Illness Initial comments: 22-year-old male presents to the emergency department for chief complaint of abscess on left lower back. Patient states it has been there for about 2 days. Patient states he tried to pop it and "pus" came out of it. Patient has not been on any antibiotics. Patient does not recall being bitten by any insects. Patient denies any fevers or chills at home. Patient would like for the swelling to go down. He states it is painful to lay on. Patient has no other complaints at this time including shortness of breath, chest pain, abdominal pain, nausea or vomiting, headache, or visual changes. - Related Data Previous Rx's Medication Instructions Recorded Acetaminophen Tab [Tylenol Tab] 500 mg PO Q6H #30 tablet 09/30/17 Omeprazole 40 mg PO DAILY #14 capsule. 09/30/17 Ondansetron Odt [Zofran Odt] 4 mg PO Q8HR PRN #10 tab 09/30/17 levETIRAcetam [Keppra] 750 mg PO BID #20 tab 10/12/17 Ondansetron Odt [Zofran ODT] 4 mg PO Q8HR PRN #20 tab 10/13/17 Sulfamethox-Tmp 800-160Mg [Bactrim 2 tab PO Q12HR 10 Days #40 tab 11/27/17 DS 800-160 mg] Allergies Allergy/AdvReac Type Severity Reaction Status Date / Time codeine Allergy Swelling Verified 11/27/17 11:56 ibuprofen Allergy Unknown Verified 11/27/17 11:56 lactose Allergy Unknown Verified 11/27/17 11:56 phenytoin [From Dilantin] Allergy Unknown Verified 11/27/17 11:56 Review of Systems ROS Statement: Those systems with pertinent positive or pertinent negative responses have been documented in the HPI. ROS Other: All systems not noted in ROS Statement are negative. Past Medical History Past Medical History: Seizure Disorder Additional Past Medical History / Comment(s): Narcolepsy History of Any Multi-Drug Resistant Organisms: None Reported Past Surgical History: No Surgical Hx Reported Past Psychological History: ADD/ADHD, Anxiety, Depression Smoking Status: Current every day smoker Past Alcohol Use History: Occasional Past Drug Use History: Marijuana General Exam Limitations: no limitations General appearance: alert, in no apparent distress Respiratory exam: Present: normal lung sounds bilaterally. Absent: respiratory distress, wheezes, rales, rhonchi, stridor Cardiovascular Exam: Present: regular rate, normal rhythm, normal heart sounds. Absent: systolic murmur, diastolic murmur, rubs, gallop, clicks Skin exam: Present: other (There is a 1.5 cm x 1.5 cm abscess in the left lower back. No signs of cellulitis. No spreading redness or streaking redness. There is a small opening in the abscess already. ) Course Vital Signs 11/27/17 11:53 Temperature 98.2 F Pulse Rate 90 Respiratory 20 Rate Blood Pressure 112/80 O2 Sat by Pulse 98 Oximetry Procedures - Procedures Initial comment: Patient's abscess was cleaned with alcohol prep pad. It was then numbed with 2 cc 1% lidocaine. 11 blade was used to incise the abscess. No drainage was produced. He was then covered with bacitracin and gauze. Medical Decision Making - Medical Decision Making 22-year-old male presents to the emergency department for chief complaint of abscess 2 days. Patient states it is painful. He has tried to pop it and pus came out. Abscess was incised but no drainage was expelled. Patient was educated to apply warm compresses. He was given antibiotics. He was educated to follow-up with preform machine operator in 1-2 days. He is to return to the emergency department if he notices any signs of infection or fever. Disposition Clinical Impression: Abscess Disposition: HOME SELF-CARE Condition: Good Instructions: Abscess (ED) Additional Instructions: Please take antibiotic as directed. Please apply warm compresses multiple times a day. Return if you notice any signs of infection. Please follow-up with preform machine operator in 1-2 days. Prescriptions: Sulfamethox-Tmp 800-160Mg [Bactrim DS 800-160 mg] 2 tab PO Q12HR 10 Days #40 tab Is patient prescribed a controlled substance at d/c from ED?: No Referrals: Nayan Mendoza MD [Primary Care Provider] - 1-2 days Time of Disposition: 13:27
== END 2017-11-27 13:33 | disposition home or self-care (01) ==
LOC: EC 11:52
DX: L02.212 Cutaneous abscess of back [any part, except buttock and flank] (principal); F17.200 Nicotine dependence, unspecified, uncomplicated; Z88.5 Allergy status to narcotic agent; Z88.6 Allergy status to analgesic agent; Z91.011 Allergy to milk products; Z88.8 Allergy status to other drugs, medicaments and biological substances
CPT/HCPCS: 10060; 99282

== ENCOUNTER 2017-12-12 13:45 | Emergency (ER) | payer OTHER ==
[2017-12-12 13:49] VITALS: PULSE 78; TEMP 98
[2017-12-12] MEDS ORDERED: SODIUM CHLORIDE 0.9% 1,000 ML IV STA (14:21)
--- NOTE | 2017-12-12 14:24 | ED ---
Seizure HPI - General Chief Complaint: Seizure Stated Complaint: seizue with forehead lac Time Seen by Provider: 12/12/17 13:57 Source: patient Mode of arrival: wheelchair Limitations: no limitations - History of Present Illness Initial Comments: Patient is a 22-year-old male presenting for seizures. Patient states that this is an ongoing problem and he takes 1000 mg of Keppra daily as well as 750 mg of Depakote daily but he has not done so on a couple months. He states that he was at home and had a seizure but is unsure what happened during the seizure and how long it lasted. He also denies any prodromal symptoms and the seizure he fell and hit his head on the concrete. He denies any lingering symptoms other than feeling fatigued as well as a cut to the right side of his forehead. He denies any chest pain or back pain or neck pain as well as nausea/vomiting/ diarrhea. He states he has not been compliant with the medication because he is out of it. - Related Data Home Medications Medication Instructions Recorded Confirmed No Known Home Medications [No 12/12/17 12/12/17 Known Home Medications] Previous Rx's Medication Instructions Recorded Divalproex [Depakote] 750 mg PO BID 30 Days #90 tablet. 12/12/17 levETIRAcetam [Keppra] 500 mg PO Q12HR 30 Days #60 tab 12/12/17 Allergies Allergy/AdvReac Type Severity Reaction Status Date / Time codeine Allergy Swelling Verified 12/12/17 13:49 ibuprofen Allergy Unknown Verified 12/12/17 13:49 lactose Allergy Unknown Verified 12/12/17 13:49 phenytoin [From Dilantin] Allergy Unknown Verified 12/12/17 13:49 Review of Systems ROS Statement: Those systems with pertinent positive or pertinent negative responses have been documented in the HPI. Constitutional: Negative for chills, and fever. positive for fatigue HENT: Negative for congestion. Respiratory: Negative for chest tightness, shortness of breath and wheezing. Negative for cough Cardiovascular: Negative for chest pain and palpitations. Gastrointestinal: Negative for abdominal pain. Negative for abdominal distention , diarrhea, nausea and vomiting. Genitourinary: Negative for dysuria. Musculoskeletal: Negative for back pain, neck pain and neck stiffness. Skin: Negative for color change. Neurological: Negative for dizziness, speech difficulty, weakness and light- headedness. Positive for seizure Psychiatric/Behavioral: Negative for agitation and confusion. The patient is not nervous/anxious. ROS Other: All systems not noted in ROS Statement are negative. Past Medical History Past Medical History: Seizure Disorder Additional Past Medical History / Comment(s): Narcolepsy History of Any Multi-Drug Resistant Organisms: None Reported Past Surgical History: No Surgical Hx Reported Past Psychological History: ADD/ADHD, Anxiety, Depression Smoking Status: Current every day smoker Past Alcohol Use History: Occasional Past Drug Use History: Marijuana General Exam - General Exam Comments Initial Comments: Constitutional: Pt is oriented to person, place, and time. Pt appears well- developed and well-nourished. No distress. HENT: Head: Normocephalic. Hematoma measuring approximately 3 cm on the right forehead with an overlying abrasion measuring approximately 1.5 cm in length. Eyes: EOM are normal. Pupils 3 mm and reactive bilaterally. Neck: Normal range of motion. Neck supple. Cardiovascular: Normal rate, regular rhythm, S1 normal, S2 normal and normal heart sounds. Exam reveals no gallop and no friction rub. No murmur heard. Pulmonary/Chest: Effort normal and breath sounds normal. No tachypnea and no bradypnea. No respiratory distress. No wheezes or rales noted. Abdominal: Soft. Bowel sounds are normal. Pt exhibits no shifting dullness, no distension, no pulsatile liver, no fluid wave, no abdominal bruit and no ascites. There is no tenderness. There is no rigidity, no rebound, no guarding, no tenderness at McBurney's point and negative Cespedes's sign. Musculoskeletal: Normal range of motion. Neurological: Pt is alert and oriented to person, place, and time. No cranial nerve deficit. Skin: Skin is warm and dry. No rash noted. Pt is not diaphoretic. No erythema. No pallor. Psychiatric: Pt has a normal mood and affect. Pt behavior is normal. Thought content normal. Limitations: no limitations Course Vital Signs 12/12/17 13:46 Temperature 98.0 F Pulse Rate 78 Respiratory 18 Rate Blood Pressure 119/62 O2 Sat by Pulse 99 Oximetry - Reevaluation(s) Reevaluation #1: 12/12/17 15:37 CC of the head was negative and electrolytes within normal limits. Depakote level is not measurable. Case discussed with Dr. Cowart, the neurologist, and it was recommended that the patient be loaded with IV Keppra 1000 mg as well as IV Depakote, 1000 mg. Medical Decision Making - Medical Decision Making Patient was given a loading dose of Keppra and Depakote. Laboratory studies were obtained and a electrolytes also within normal limits and Depakote level was not measurable. Patient was given a prescription for increased dosage of Keppra 500 mg twice a day and Depakote 750 mg twice a day per the request of neurology. Additionally, CT of the head was unremarkable and the patient exhibited no evidence of seizures in the emergency department. Extensive discussion was had with the patient and it was advised that he should be compliant with his medications because it is likely secondary to noncompliance that he is continuing to have the seizures. Explained all labs and diagnostic test results and that we will discharge the patient home and patient is to follow up with PCP in 1-2 days and return to the ED if symptoms worsen. Pt is agreeable to plan. - Lab Data Result diagrams: 12/12/17 14:30 12/12/17 14:30 Lab Results 12/12/17 12/12/17 Range/Units 14:30 14:30 WBC 10.8 H (3.8-10.6) k/uL RBC 5.73 (4.30-5.90) m/uL Hgb 15.2 (13.0-17.5) gm/dL Hct 46.1 (39.0-53.0) % MCV 80.3 (80.0-100.0) fL MCH 26.5 (25.0-35.0) pg MCHC 33.0 (31.0-37.0) g/dL RDW 13.2 (11.5-15.5) % Plt Count 257 (150-450) k/uL Neutrophils % 79 % Lymphocytes % 12 % Monocytes % 7 % Eosinophils % 0 % Basophils % 0 % Neutrophils # 8.5 H (1.3-7.7) k/uL Lymphocytes # 1.3 (1.0-4.8) k/uL Monocytes # 0.8 (0-1.0) k/uL Eosinophils # 0.1 (0-0.7) k/uL Basophils # 0.0 (0-0.2) k/uL Sodium 145 (137-145) mmol/L Potassium 4.0 (3.5-5.1) mmol/L Chloride 107 (98-107) mmol/L Carbon Dioxide 25 (22-30) mmol/L Anion Gap 13 mmol/L BUN 9 (9-20) mg/dL Creatinine 0.90 (0.66-1.25) mg/dL Est GFR (CKD-EPI)AfAm >90 (>60 ml/min/1.73 sqM) Est GFR (CKD-EPI)NonAf >90 (>60 ml/min/1.73 sqM) Glucose 76 (74-99) mg/dL Calcium 10.0 (8.4-10.2) mg/dL Magnesium 2.1 (1.6-2.3) mg/dL Total Bilirubin 0.4 (0.2-1.3) mg/dL AST 48 (17-59) U/L ALT 44 (21-72) U/L Alkaline Phosphatase 62 (38-126) U/L Total Protein 7.2 (6.3-8.2) g/dL Albumin 4.4 (3.5-5.0) g/dL Valproic Acid <10.0 ug/mL Serum Alcohol <10 mg/dL - EKG Data EKG Comments: EKG shows sinus bradycardia of 54 bpm. There are nonspecific T-wave inversions in V1 and V2. MS interval 128, QRS 88, QTC 379 Disposition Clinical Impression: Seizure, Head trauma Disposition: HOME SELF-CARE Condition: Good Instructions: Recurrent Seizures in Adults (ED) Prescriptions: Divalproex [Depakote] 750 mg PO BID 30 Days #90 tablet. levETIRAcetam [Keppra] 500 mg PO Q12HR 30 Days #60 tab Is patient prescribed a controlled substance at d/c from ED?: No Referrals: Nayan Mendoza MD [Primary Care Provider] - 1-2 days Korey Cowart MD [STAFF PHYSICIAN] - 1-2 days Time of Disposition: 16:06
[2017-12-12 14:41] LABS: Basophils % (A) 0 %; Eosinophils # (A) 0.1 k/uL (0-0.7); Eosinophils % (A) 0 %; HCT 46.1 % (39.0-53.0); HGB 15.2 gm/dL (13.0-17.5); Lymphocytes # (A) 1.3 k/uL (1.0-4.8); Lymphocytes % (A) 12 %; MCH 26.5 pg (25.0-35.0); MCV 80.3 fL (80.0-100.0); Mean Platelet Volume 6.5; Monocytes # (A) 0.8 k/uL (0-1.0); Monocytes % (A) 7 %; Neutrophils # (A) 8.5 k/uL (1.3-7.7); Neutrophils % (A) 79 %; Platelet Count 257 k/uL (150-450); RBC 5.73 m/uL (4.30-5.90); RDW 13.2 % (11.5-15.5); WBC 10.8 k/uL (3.8-10.6)
[2017-12-12 14:50] LABS: ALT 44 U/L (21-72); AST 48 U/L (17-59); Albumin 4.4 g/dL (3.5-5.0); Alcohol <10 mg/dL; Alkaline Phosphatase 62 U/L (38-126); Anion Gap 13 mmol/L; Blood Urea Nitrogen 9 mg/dL (9-20); Carbon Dioxide 25 mmol/L (22-30); Chloride 107 mmol/L (98-107); Glucose 76 mg/dL (74-99); Magnesium 2.1 mg/dL (1.6-2.3); Sodium 145 mmol/L (137-145); Total Bilirubin 0.4 mg/dL (0.2-1.3); Total Protein 7.2 g/dL (6.3-8.2)
[2017-12-12 14:55] LABS: Valproic Acid (Depakene) <10.0 ug/mL
--- NOTE | 2017-12-12 14:55 | CT ---
EXAMINATION TYPE: CT brain wo con DATE OF EXAM: 12/12/2017 COMPARISON: 03/25/2016 HISTORY: Seizure today, right frontal injury. History of seizures. CT DLP: 1003.2 mGycm. Automated Exposure Control for Dose Reduction was Utilized. TECHNIQUE: CT scan of the head is performed without contrast. FINDINGS: There is no acute intracranial hemorrhage, mass effect, or midline shift identified. The ventricles and sulci are within normal limits in size. Mild polypoid mucosal thickening is seen with in the sphenoid and left maxillary sinus. Small right frontal osteoma is unchanged. The globes are in tact and the visualized sinuses are clear. Minimal right frontal scalp contusion is seen without merary cem. IMPRESSION: No acute intracranial hemorrhage, mass effect, or midline shift is seen. Minimal right f rontal scalp contusion without hematoma or underlying calvarial fracture.
[2017-12-12] MEDS ORDERED: levETIRAcetam 500 MG TAB PO STA (15:07)
[2017-12-12] MEDS ORDERED: DIVALPROEX ER 250 MG TAB.ER.24H PO STA (15:07)
[2017-12-12] MEDS ORDERED: levETIRAcetam IV 1,000 MG in SALINE 1 100ML.BAG IVPB STA (15:38)
[2017-12-12] MEDS ORDERED: VALPROATE SODIUM 750 MG in SODIUM CHLORIDE 0.9% 50 ML IVPB STA (15:38)
[2017-12-12 17:45] VITALS: BP 151/83; RESP 16
== END 2017-12-12 17:45 | disposition home or self-care (01) ==
LOC: EC 13:45
DX: S00.83XA Contusion of other part of head, initial encounter (principal); G40.909 Epilepsy, unspecified, not intractable, without status epilepticus; F17.200 Nicotine dependence, unspecified, uncomplicated; Z53.8 Procedure and treatment not carried out for other reasons; Z88.5 Allergy status to narcotic agent; Z88.6 Allergy status to analgesic agent; Z88.8 Allergy status to other drugs, medicaments and biological substances; Z91.018 Allergy to other foods; W18.00XA Striking against unspecified object with subsequent fall, initial encounter
CPT/HCPCS: 36415; 93005; 80164; 80053; 83735; 85025; 80320; 70450; 99284; 96365; 96375; 96361; J1953

== ENCOUNTER 2017-12-21 02:53 | Emergency (ER) | payer OTHER ==
[2017-12-21 02:58] VITALS: TEMP 97.9
[2017-12-21] MEDS ORDERED: SODIUM CHLORIDE 0.9% 1,000 ML IV STA (03:10)
[2017-12-21] MEDS ORDERED: ACETAMINOPHEN TAB 325 MG TAB PO STA (03:11)
[2017-12-21] MEDS ORDERED: ONDANSETRON 4 MG/2 ML VIAL IVP STA (03:11)
--- NOTE | 2017-12-21 03:28 | ED ---
Seizure HPI - General Chief Complaint: Seizure Stated Complaint: Seizure Time Seen by Provider: 12/21/17 02:59 Source: patient Mode of arrival: EMS Limitations: no limitations - History of Present Illness Initial Comments: 22-year-old male patient presents to the emergency department today for evaluation after having a seizure at home. Patient's girlfriend is present and provides most of history. States they're coming home from the movies, states and he walked through the front door patient did fall down and started having a seizure. States the seizure lasted approximately 3 minutes. States that he exhibited full body shaking. Denies that the patient hit his head during the fall. States that he did come around after the seizure quicker than usual. Patient currently is reporting only feeling tired and a slight headache. He denies any nausea or vomiting. Denies any blurred or double vision. Patient states he has been taking his Keppra and Depakote as prescribed. States he does not have a neurologist and that he gets his medications prescribed by Dr. Mendoza. Patient states that he smokes marijuana. Denies any alcohol use. Denies any recent illness. Patient denies any recent rash, fever, chills, shortness breath, chest pain, abdominal pain, nausea, vomiting, diarrhea, constipation, back pain, numbness, tingling, dizziness, weakness, hematuria, dysuria, urinary urgency, urinary frequency, headache, visual changes, or any other complaints. - Related Data Previous Rx's Medication Instructions Recorded Divalproex [Depakote] 750 mg PO BID 30 Days #90 tablet. 12/12/17 levETIRAcetam [Keppra] 500 mg PO Q12HR 30 Days #60 tab 12/12/17 Allergies Allergy/AdvReac Type Severity Reaction Status Date / Time codeine Allergy Swelling Verified 12/12/17 13:49 ibuprofen Allergy Unknown Verified 12/12/17 13:49 lactose Allergy Unknown Verified 12/12/17 13:49 phenytoin [From Dilantin] Allergy Unknown Verified 12/12/17 13:49 Review of Systems ROS Statement: Those systems with pertinent positive or pertinent negative responses have been documented in the HPI. ROS Other: All systems not noted in ROS Statement are negative. Past Medical History Past Medical History: Seizure Disorder Additional Past Medical History / Comment(s): Narcolepsy History of Any Multi-Drug Resistant Organisms: None Reported Past Surgical History: No Surgical Hx Reported Past Psychological History: ADD/ADHD, Anxiety, Depression Smoking Status: Current every day smoker Past Alcohol Use History: Occasional Past Drug Use History: Marijuana General Exam Limitations: no limitations General appearance: in no apparent distress, other (Patient is drowsy. This is a well-developed, well-nourished adult male patient in no acute distress. Vital signs upon presentation are temperature 97.9F, pulse 85, respirations 20 , blood pressure 130/61, pulse ox 94% on room air.) Head exam: Present: atraumatic, normocephalic, normal inspection Eye exam: Present: normal appearance, PERRL, EOMI. Absent: scleral icterus, conjunctival injection, nystagmus, periorbital swelling ENT exam: Present: normal exam, normal oropharynx, mucous membranes moist Neck exam: Present: normal inspection, full ROM, other (Nontender, no step-off, no deformity to firm midline palpation of the posterior cervical spine. Full range of motion without pain or limitation.). Absent: tenderness, meningismus, lymphadenopathy Respiratory exam: Present: normal lung sounds bilaterally. Absent: respiratory distress, wheezes, rales, rhonchi, stridor Cardiovascular Exam: Present: regular rate, normal rhythm, normal heart sounds. Absent: systolic murmur, diastolic murmur, rubs, gallop, clicks GI/Abdominal exam: Present: soft, normal bowel sounds. Absent: distended, tenderness, guarding, rebound, rigid Neurological exam: Present: oriented X3, CN II-XII intact. Absent: alert ( Drowsy) Psychiatric exam: Present: normal affect, normal mood Skin exam: Present: warm, dry, intact, normal color. Absent: rash Course Vital Signs 12/21/17 02:55 Temperature 97.9 F Pulse Rate 85 Respiratory 20 Rate Blood Pressure 130/61 O2 Sat by Pulse 94 L Oximetry Medical Decision Making - Medical Decision Making 22-year-old male patient presented to the emergency department today for evaluation after having a seizure at home. Physical examination is unremarkable. Patient is neurologically intact. Labs reviewed and were unremarkable. Patient's Depakote levels less than 10. He will be given 1000 g of Depakote here. We did discuss importance of taking his antiepileptic medications. He is instructed to follow-up with neurology for further evaluation. He is instructed to follow-up with his primary care physician. Return parameters discussed in detail. He verbalizes understanding and agrees with this plan. - Lab Data Result diagrams: 12/21/17 03:20 12/21/17 03:20 Lab Results 12/21/17 12/21/17 Range/Units 03:20 03:20 WBC 5.9 (3.8-10.6) k/uL RBC 5.35 (4.30-5.90) m/uL Hgb 15.0 (13.0-17.5) gm/dL Hct 43.8 (39.0-53.0) % MCV 81.9 (80.0-100.0) fL MCH 28.1 (25.0-35.0) pg MCHC 34.3 (31.0-37.0) g/dL RDW 13.4 (11.5-15.5) % Plt Count 208 (150-450) k/uL Neutrophils % 45 % Lymphocytes % 40 % Monocytes % 10 % Eosinophils % 1 % Basophils % 1 % Neutrophils # 2.7 (1.3-7.7) k/uL Lymphocytes # 2.4 (1.0-4.8) k/uL Monocytes # 0.6 (0-1.0) k/uL Eosinophils # 0.0 (0-0.7) k/uL Basophils # 0.1 (0-0.2) k/uL Sodium 144 (137-145) mmol/L Potassium 4.2 (3.5-5.1) mmol/L Chloride 106 (98-107) mmol/L Carbon Dioxide 24 (22-30) mmol/L Anion Gap 14 mmol/L BUN 10 (9-20) mg/dL Creatinine 0.80 (0.66-1.25) mg/dL Est GFR (CKD-EPI)AfAm >90 (>60 ml/min/1.73 sqM) Est GFR (CKD-EPI)NonAf >90 (>60 ml/min/1.73 sqM) Glucose 77 (74-99) mg/dL Calcium 9.4 (8.4-10.2) mg/dL Total Bilirubin 0.4 (0.2-1.3) mg/dL AST 40 (17-59) U/L ALT 35 (21-72) U/L Alkaline Phosphatase 57 (38-126) U/L Total Protein 6.7 (6.3-8.2) g/dL Albumin 4.2 (3.5-5.0) g/dL Valproic Acid <10.0 ug/mL - EKG Data -: EKG Interpreted by Me EKG Comments: EKG was obtained at 03 32 shows normal sinus rhythm with sinus arrhythmia. Ventricular rate is 72, WA interval 124, QRS duration 92, QT 378, QTC 413. No evidence of ST elevation or depression. Disposition Clinical Impression: Recurrent seizures Disposition: HOME SELF-CARE Condition: Good Instructions: Recurrent Seizures in Adults (ED) Additional Instructions: Take your antiseizure medication as directed. Follow-up with your primary care physician for recheck as soon as possible. Follow-up with the neurologist as soon as possible. Return here immediately for any new, worsening, or concerning symptoms. Is patient prescribed a controlled substance at d/c from ED?: No Referrals: Nayan Mendoza MD [Primary Care Provider] - 1-2 days Maddie Cowart MD [STAFF PHYSICIAN] - 1-2 days Time of Disposition: 04:35
[2017-12-21 03:48] LABS: Basophils # (A) 0.1 k/uL (0-0.2); Basophils % (A) 1 %; Eosinophils % (A) 1 %; HCT 43.8 % (39.0-53.0); Lymphocytes # (A) 2.4 k/uL (1.0-4.8); Lymphocytes % (A) 40 %; MCH 28.1 pg (25.0-35.0); MCHC 34.3 g/dL (31.0-37.0); MCV 81.9 fL (80.0-100.0); Mean Platelet Volume 6.7; Monocytes # (A) 0.6 k/uL (0-1.0); Monocytes % (A) 10 %; Neutrophils # (A) 2.7 k/uL (1.3-7.7); Neutrophils % (A) 45 %; Platelet Count 208 k/uL (150-450); RBC 5.35 m/uL (4.30-5.90); RDW 13.4 % (11.5-15.5); WBC 5.9 k/uL (3.8-10.6)
[2017-12-21 03:51] LABS: ALT 35 U/L (21-72); AST 40 U/L (17-59); Albumin 4.2 g/dL (3.5-5.0); Alkaline Phosphatase 57 U/L (38-126); Anion Gap 14 mmol/L; Blood Urea Nitrogen 10 mg/dL (9-20); Calcium 9.4 mg/dL (8.4-10.2); Carbon Dioxide 24 mmol/L (22-30); Chloride 106 mmol/L (98-107); Glucose 77 mg/dL (74-99); Potassium 4.2 mmol/L (3.5-5.1); Sodium 144 mmol/L (137-145); Total Bilirubin 0.4 mg/dL (0.2-1.3); Total Protein 6.7 g/dL (6.3-8.2)
[2017-12-21 03:57] LABS: Valproic Acid (Depakene) <10.0 ug/mL
[2017-12-21] MEDS ORDERED: DIVALPROEX 500 MG TABLET.DR PO STA (04:33)
[2017-12-21 05:07] VITALS: BP 116/53; PULSE 83; RESP 18
== END 2017-12-21 05:12 | disposition home or self-care (01) ==
LOC: EC 02:53
DX: R56.9 Unspecified convulsions (principal); F17.200 Nicotine dependence, unspecified, uncomplicated; Z88.5 Allergy status to narcotic agent; Z88.6 Allergy status to analgesic agent; Z91.011 Allergy to milk products; Z88.8 Allergy status to other drugs, medicaments and biological substances
CPT/HCPCS: 36415; 93005; 80164; 80053; 80177; 85025; 99284; 96374; 96361; J2405

== ENCOUNTER 2018-04-15 09:14 | Emergency (ER) | payer OTHER ==
[2018-04-15] MEDS ORDERED: SODIUM CHLORIDE 0.9% 500 ML IV STA (09:17)
--- NOTE | 2018-04-15 09:27 | ED ---
General Adult HPI - General Stated complaint: seizure Time Seen by Provider: 04/15/18 09:15 Source: patient, EMS, RN notes reviewed Mode of arrival: EMS Limitations: no limitations - History of Present Illness Initial comments: This is a 23-year-old male presents emergency department via EMS chief complaint seizure. Patient has known history of seizures currently takes Keppra and Depakote. Patient states he has not missed any recent doses. Patient has been evaluated several times for seizures. Patient states that it is normal for him to have breakthrough seizures. He has no specific complaints denies chest pain, headache and dizziness, blurred vision, nausea vomiting. Patient states that this was seizure while in bed and significant other called 911. Patient did not have any falls. - Related Data Previous Rx's Medication Instructions Recorded Divalproex [Depakote] 750 mg PO BID 30 Days #90 tablet. 12/12/17 levETIRAcetam [Keppra] 500 mg PO Q12HR 30 Days #60 tab 12/12/17 Allergies Allergy/AdvReac Type Severity Reaction Status Date / Time codeine Allergy Swelling Verified 12/12/17 13:49 ibuprofen Allergy Unknown Verified 12/12/17 13:49 lactose Allergy Unknown Verified 12/12/17 13:49 phenytoin [From Dilantin] Allergy Unknown Verified 12/12/17 13:49 Review of Systems ROS Statement: Those systems with pertinent positive or pertinent negative responses have been documented in the HPI. ROS Other: All systems not noted in ROS Statement are negative. Past Medical History Past Medical History: Seizure Disorder Additional Past Medical History / Comment(s): Narcolepsy History of Any Multi-Drug Resistant Organisms: None Reported Past Surgical History: No Surgical Hx Reported Past Psychological History: ADD/ADHD, Anxiety, Depression Smoking Status: Current every day smoker Past Alcohol Use History: Occasional Past Drug Use History: Marijuana General Exam Limitations: no limitations General appearance: alert, in no apparent distress Head exam: Present: atraumatic, normocephalic, normal inspection Eye exam: Present: normal appearance, PERRL, EOMI. Absent: scleral icterus, conjunctival injection, periorbital swelling ENT exam: Present: normal exam, normal oropharynx, mucous membranes moist Neck exam: Present: normal inspection, full ROM. Absent: tenderness, meningismus, lymphadenopathy Respiratory exam: Present: normal lung sounds bilaterally. Absent: respiratory distress, wheezes, rales, rhonchi, stridor Cardiovascular Exam: Present: regular rate, normal rhythm, normal heart sounds. Absent: systolic murmur, diastolic murmur, rubs, gallop, clicks GI/Abdominal exam: Present: soft, normal bowel sounds. Absent: distended, tenderness, guarding, rebound, rigid Neurological exam: Present: alert, oriented X3, CN II-XII intact Skin exam: Present: warm, dry, intact, normal color. Absent: rash Course Vital Signs 04/15/18 09:19 Temperature 98.5 F Pulse Rate 92 Respiratory 18 Rate Blood Pressure 116/59 O2 Sat by Pulse 95 Oximetry EKG Findings - EKG Comments: EKG Findings:: EKG performed at 19:35 normal sinus rhythm with rate of 79 [place] 1: 30 QRS 86 QT/QTC 372/426 Medical Decision Making - Medical Decision Making 23-year-old male present emergency from for a seizure. Patient has known history of seizures. Patient had a breakthrough seizure. Patient will be discharged at this time and follow-up with neurologist return parameters were discussed. - Lab Data Result diagrams: 04/15/18 09:25 04/15/18 09:25 Lab Results 04/15/18 04/15/18 04/15/18 Range/Units 09:25 09:25 10:00 WBC 9.9 (3.8-10.6) k/uL RBC 4.99 (4.30-5.90) m/uL Hgb 14.0 (13.0-17.5) gm/dL Hct 44.2 (39.0-53.0) % MCV 88.5 (80.0-100.0) fL MCH 28.1 (25.0-35.0) pg MCHC 31.7 (31.0-37.0) g/dL RDW 15.4 (11.5-15.5) % Plt Count 237 (150-450) k/uL Neutrophils % 30 % Lymphocytes % 58 % Monocytes % 7 % Eosinophils % 2 % Basophils % 1 % Neutrophils # 3.0 (1.3-7.7) k/uL Lymphocytes # 5.7 H (1.0-4.8) k/uL Monocytes # 0.7 (0-1.0) k/uL Eosinophils # 0.2 (0-0.7) k/uL Basophils # 0.1 (0-0.2) k/uL Differential Comment Manual Slide Review Performed RBC Morphology Normal Sodium 144 (137-145) mmol/L Potassium 4.3 (3.5-5.1) mmol/L Chloride 110 H (98-107) mmol/L Carbon Dioxide 17 L (22-30) mmol/L Anion Gap 17 mmol/L BUN 11 (9-20) mg/dL Creatinine 0.89 (0.66-1.25) mg/dL Est GFR (CKD-EPI)AfAm >90 (>60 ml/min/1.73 sqM) Est GFR (CKD-EPI)NonAf >90 (>60 ml/min/1.73 sqM) Glucose 90 (74-99) mg/dL Calcium 9.6 (8.4-10.2) mg/dL Total Bilirubin 0.5 (0.2-1.3) mg/dL AST 36 (17-59) U/L ALT 38 (21-72) U/L Alkaline Phosphatase 45 (38-126) U/L Total Protein 7.1 (6.3-8.2) g/dL Albumin 4.3 (3.5-5.0) g/dL Urine Color Light Yellow Urine Appearance Clear (Clear) Urine pH 6.0 (5.0-8.0) Ur Specific Leon 1.009 (1.001-1.035) Urine Protein Trace H (Negative) Urine Glucose (UA) Negative (Negative) Urine Ketones Negative (Negative) Urine Blood Trace H (Negative) Urine Nitrite Negative (Negative) Urine Bilirubin Negative (Negative) Urine Urobilinogen <2.0 (<2.0) mg/dL Ur Leukocyte Esterase Negative (Negative) Urine RBC <1 (0-5) /hpf Urine Mucus Rare H (None) /hpf Urine Opiates Screen Not Detected (NotDetected) Ur Oxycodone Screen Not Detected (NotDetected) Urine Methadone Screen Not Detected (NotDetected) Ur Propoxyphene Screen Not Detected (NotDetected) Ur Barbiturates Screen Not Detected (NotDetected) U Tricyclic Antidepress Not Detected (NotDetected) Ur Phencyclidine Scrn Not Detected (NotDetected) Ur Amphetamines Screen Not Detected (NotDetected) U Methamphetamines Scrn Not Detected (NotDetected) U Benzodiazepines Scrn Not Detected (NotDetected) Urine Cocaine Screen Not Detected (NotDetected) U Marijuana (THC) Screen Detected H (NotDetected) Disposition Clinical Impression: Generalized seizure Disposition: HOME SELF-CARE Condition: Stable Instructions: Recurrent Seizures in Adults (ED) Additional Instructions: Please return to the Emergency Department if symptoms worsen or any other concerns. Is patient prescribed a controlled substance at d/c from ED?: No Referrals: Nayan Mendoza MD [Primary Care Provider] - 1-2 days Time of Disposition: 10:57
[2018-04-15 09:52] LABS: Basophils # (A) 0.1 k/uL (0-0.2); Basophils % (A) 1 %; Eosinophils # (A) 0.2 k/uL (0-0.7); Eosinophils % (A) 2 %; HCT 44.2 % (39.0-53.0); Lymphocytes # (A) 5.7 k/uL (1.0-4.8); Lymphocytes % (A) 58 %; MCH 28.1 pg (25.0-35.0); MCHC 31.7 g/dL (31.0-37.0); MCV 88.5 fL (80.0-100.0); Mean Platelet Volume 6.6; Monocytes # (A) 0.7 k/uL (0-1.0); Monocytes % (A) 7 %; Neutrophils % (A) 30 %; Platelet Count 237 k/uL (150-450); RBC 4.99 m/uL (4.30-5.90); RDW 15.4 % (11.5-15.5); WBC 9.9 k/uL (3.8-10.6)
[2018-04-15 10:05] LABS: ALT 38 U/L (21-72); AST 36 U/L (17-59); Albumin 4.3 g/dL (3.5-5.0); Alkaline Phosphatase 45 U/L (38-126); Anion Gap 17 mmol/L; Blood Urea Nitrogen 11 mg/dL (9-20); Calcium 9.6 mg/dL (8.4-10.2); Carbon Dioxide 17 mmol/L (22-30); Chloride 110 mmol/L (98-107); Glucose 90 mg/dL (74-99); Potassium 4.3 mmol/L (3.5-5.1); Sodium 144 mmol/L (137-145); Total Bilirubin 0.5 mg/dL (0.2-1.3); Total Protein 7.1 g/dL (6.3-8.2)
[2018-04-15 10:41] LABS: Appearance,Urine Clear (Clear); Bilirubin,Urine Negative (Negative); Blood,Urine Trace (Negative); Color,Urine Light Yellow; Glucose,Urine (UA) Negative (Negative); Ketones,Urine Negative (Negative); Leukocyte Esterase,Urine Negative (Negative); Mucus,Urine Rare /hpf; Nitrite,Urine Negative (Negative); Protein,Urine Trace (Negative); RBC,Urine <1 /hpf (0-5); Specific Gravity,Urine 1.009 (1.001-1.035); Urobilinogen,Urine <2.0 mg/dL (<2.0)
[2018-04-15 10:48] LABS: Amphetamine Screen,Urine Not Detected (NotDetected); Barbiturate Screen,Urine Not Detected (NotDetected); Benzodiazepines Screen,Urine Not Detected (NotDetected); Cocaine Screen,Urine Not Detected (NotDetected); Methadone Screen, Urine Not Detected (NotDetected); Opiate Screen,Urine Not Detected (NotDetected); Oxycodone Screen, Urine Not Detected (NotDetected); Phencyclidine Screen,Urine Not Detected (NotDetected); Tricyclic Antidepressant,Urine Not Detected (NotDetected); Urn Cannabinoid Scrn Detected (NotDetected)
[2018-04-15 11:13] VITALS: BP 126/80; PULSE 72; RESP 20; TEMP 98.1
[2018-04-15 11:24] LABS: Valproic Acid (Depakene) <10.0 ug/mL
== END 2018-04-15 11:19 | disposition home or self-care (01) ==
LOC: EC 09:14
DX: G40.909 Epilepsy, unspecified, not intractable, without status epilepticus (principal); F17.200 Nicotine dependence, unspecified, uncomplicated; Z88.8 Allergy status to other drugs, medicaments and biological substances; Z91.011 Allergy to milk products; Z88.5 Allergy status to narcotic agent
CPT/HCPCS: 36415; 80053; 80164; 80177; 80306; 81001; 85025; 93005; 99284

== ENCOUNTER 2018-05-11 23:37 | Emergency (ER) | payer OTHER ==
[2018-05-11] MEDS ORDERED: SODIUM CHLORIDE 0.9% 1,000 ML IV STA (23:40)
[2018-05-11] MEDS ORDERED: levETIRAcetam IV 1,000 MG in SALINE 1 100ML.BAG IVPB STA (23:44)
--- NOTE | 2018-05-11 23:50 | ED ---
Seizure HPI - General Stated Complaint: Seizure Time Seen by Provider: 05/11/18 23:39 - History of Present Illness Initial Comments: Charles is a 23 yo male with PMH of seizure disorder who presents to the ED today via EMS for evaluation of a seizure at home. Upon arrival the patient is postictal and history is provided by EMS personnel, they report that they were called to the patient's home for a tonic-clonic seizure. The person who provided history is familiar with the patient, has witnessed his seizures in the past. She reports that this was consistent with his previous seizures. The patient was recently incarcerated and has not had any of his home antiepileptic medications since being released from police custody approximately one month ago. - Related Data Home Medications Medication Instructions Recorded Confirmed Divalproex [Depakote] 750 mg PO TID 05/11/18 05/11/18 levETIRAcetam [Keppra] 1,000 mg PO DAILY 05/11/18 05/11/18 Allergies Allergy/AdvReac Type Severity Reaction Status Date / Time codeine Allergy Swelling Verified 12/12/17 13:49 ibuprofen Allergy Unknown Verified 12/12/17 13:49 lactose Allergy Unknown Verified 12/12/17 13:49 phenytoin [From Dilantin] Allergy Unknown Verified 12/12/17 13:49 Review of Systems ROS Statement: Those systems with pertinent positive or pertinent negative responses have been documented in the HPI. ROS Other: All systems not noted in ROS Statement are negative. Past Medical History Past Medical History: Seizure Disorder Additional Past Medical History / Comment(s): Narcolepsy History of Any Multi-Drug Resistant Organisms: None Reported Past Surgical History: No Surgical Hx Reported Past Psychological History: ADD/ADHD, Anxiety, Depression Smoking Status: Current every day smoker Past Alcohol Use History: Occasional Past Drug Use History: Marijuana General Exam - General Exam Comments Initial Comments: Physical Exam GENERAL: Patient is well-developed and well-nourished. Patient appears to be postictal, some drooling noted, no blood in the oropharynx , no evidence of bowel or bladder incontinence HENT: Normocephalic, Atraumatic. EYES: PERRL, EOMI PULMONARY: Unlabored respirations. CARDIOVASCULAR: There is a regular rate and rhythm without any murmurs gallops or rubs. ABDOMEN: Soft and nontender with normal bowel sounds. SKIN: Skin is clear with no lesions or rashes and otherwise unremarkable. : Deferred NEUROLOGIC: Patient appears to be postictal, somewhat confused MUSCULOSKELETAL: Normal extremities with adequate strength and full range of motion. No lower extremity swelling or edema. No calf tenderness. PSYCHIATRIC: Normal psychiatric evaluation. Limitations: no limitations Course Vital Signs 05/11/18 05/12/18 05/12/18 23:43 02:47 03:32 Temperature 98.2 F Pulse Rate 80 54 L Respiratory 18 16 16 Rate Blood Pressure 123/79 110/63 O2 Sat by Pulse 99 99 Oximetry Medical Decision Making - Medical Decision Making Patient was seen and evaluated, patient appears to be postictal Labs were ordered IV fluids were ordered IV Keppra bolus was ordered Labs reveal lactic acidosis is likely secondary to the patient's seizure, additional IV fluids were ordered Repeat labs reveal resolution of the patient's lactic acidosis Patient was more awake and alert, patient states that he has had both of his medications prescribed by has not picked him up from [facility]. I discussed with the patient the importance of medication compliance. Patient stands this. At this time patient stable for discharge home. - Lab Data Result diagrams: 05/11/18 23:49 05/11/18 23:49 Lab Results 05/11/18 05/11/18 05/11/18 Range/Units 23:49 23:49 23:49 WBC 19.9 H (3.8-10.6) k/uL RBC 5.87 (4.30-5.90) m/uL Hgb 16.2 (13.0-17.5) gm/dL Hct 53.6 H (39.0-53.0) % MCV 91.3 (80.0-100.0) fL MCH 27.7 (25.0-35.0) pg MCHC 30.3 L (31.0-37.0) g/dL RDW 13.6 (11.5-15.5) % Plt Count 278 (150-450) k/uL Neutrophils % 21 % Lymphocytes % 70 % Monocytes % 4 % Eosinophils % 1 % Basophils % 1 % Neutrophils # 4.2 (1.3-7.7) k/uL Lymphocytes # 13.8 H (1.0-4.8) k/uL Monocytes # 0.7 (0-1.0) k/uL Eosinophils # 0.2 (0-0.7) k/uL Basophils # 0.2 (0-0.2) k/uL Manual Slide Review Performed Hypochromasia Slight Anisocytosis (manual) Present Sodium 144 (137-145) mmol/L Potassium 4.2 (3.5-5.1) mmol/L Chloride 105 (98-107) mmol/L Carbon Dioxide 17 L (22-30) mmol/L Anion Gap 22 mmol/L BUN 12 (9-20) mg/dL Creatinine 1.36 H (0.66-1.25) mg/dL Est GFR (CKD-EPI)AfAm 84 (>60 ml/min/1.73 sqM) Est GFR (CKD-EPI)NonAf 73 (>60 ml/min/1.73 sqM) Glucose 84 (74-99) mg/dL Lactic Ac Sepsis Rflx Plasma Lactic Acid Arturo 16.6 H* (0.7-2.0) mmol/L Calcium 10.6 H (8.4-10.2) mg/dL Total Bilirubin 0.7 (0.2-1.3) mg/dL AST 39 (17-59) U/L ALT 24 (21-72) U/L Alkaline Phosphatase 44 (38-126) U/L Total Protein 8.5 H (6.3-8.2) g/dL Albumin 5.4 H (3.5-5.0) g/dL Valproic Acid <10.0 ug/mL 05/12/18 05/12/18 Range/Units 00:28 02:48 WBC (3.8-10.6) k/uL RBC (4.30-5.90) m/uL Hgb (13.0-17.5) gm/dL Hct (39.0-53.0) % MCV (80.0-100.0) fL MCH (25.0-35.0) pg MCHC (31.0-37.0) g/dL RDW (11.5-15.5) % Plt Count (150-450) k/uL Neutrophils % % Lymphocytes % % Monocytes % % Eosinophils % % Basophils % % Neutrophils # (1.3-7.7) k/uL Lymphocytes # (1.0-4.8) k/uL Monocytes # (0-1.0) k/uL Eosinophils # (0-0.7) k/uL Basophils # (0-0.2) k/uL Manual Slide Review Hypochromasia Anisocytosis (manual) Sodium (137-145) mmol/L Potassium (3.5-5.1) mmol/L Chloride (98-107) mmol/L Carbon Dioxide (22-30) mmol/L Anion Gap mmol/L BUN (9-20) mg/dL Creatinine (0.66-1.25) mg/dL Est GFR (CKD-EPI)AfAm (>60 ml/min/1.73 sqM) Est GFR (CKD-EPI)NonAf (>60 ml/min/1.73 sqM) Glucose (74-99) mg/dL Lactic Ac Sepsis Rflx Y Plasma Lactic Acid Arturo 0.8 (0.7-2.0) mmol/L Calcium (8.4-10.2) mg/dL Total Bilirubin (0.2-1.3) mg/dL AST (17-59) U/L ALT (21-72) U/L Alkaline Phosphatase (38-126) U/L Total Protein (6.3-8.2) g/dL Albumin (3.5-5.0) g/dL Valproic Acid ug/mL - EKG Data EKG Comments: EKG obtained at 11:41 PM. Rate is 60, rhythm is sinus, there is a rightward axis, there are normal intervals, AL 128, QRS 90, QTC 406. No evidence of acute ischemia, infarction or arrhythmia. Disposition Clinical Impression: Epileptic seizure, Noncompliance with medication regimen Disposition: HOME SELF-CARE Instructions: Recurrent Seizures in Adults (ED) Is patient prescribed a controlled substance at d/c from ED?: No Referrals: Nayan Mendoza MD [Primary Care Provider] - 1-2 days
[2018-05-12 00:13] LABS: ALT 24 U/L (21-72); AST 39 U/L (17-59); Albumin 5.4 g/dL (3.5-5.0); Alkaline Phosphatase 44 U/L (38-126); Anion Gap 22 mmol/L; Blood Urea Nitrogen 12 mg/dL (9-20); Calcium 10.6 mg/dL (8.4-10.2); Carbon Dioxide 17 mmol/L (22-30); Chloride 105 mmol/L (98-107); Glucose 84 mg/dL (74-99); Potassium 4.2 mmol/L (3.5-5.1); Sodium 144 mmol/L (137-145); Total Bilirubin 0.7 mg/dL (0.2-1.3); Total Protein 8.5 g/dL (6.3-8.2)
[2018-05-12 00:19] LABS: Valproic Acid (Depakene) <10.0 ug/mL
[2018-05-12 00:23] LABS: Basophils # (A) 0.2 k/uL (0-0.2); Basophils % (A) 1 %; Eosinophils # (A) 0.2 k/uL (0-0.7); Eosinophils % (A) 1 %; HCT 53.6 % (39.0-53.0); HGB 16.2 gm/dL (13.0-17.5); Hypochromasia Slight; Lymphocytes # (A) 13.8 k/uL (1.0-4.8); Lymphocytes % (A) 70 %; MCH 27.7 pg (25.0-35.0); MCHC 30.3 g/dL (31.0-37.0); MCV 91.3 fL (80.0-100.0); Mean Platelet Volume 7.2; Monocytes # (A) 0.7 k/uL (0-1.0); Monocytes % (A) 4 %; Neutrophils # (A) 4.2 k/uL (1.3-7.7); Neutrophils % (A) 21 %; Platelet Count 278 k/uL (150-450); RBC 5.87 m/uL (4.30-5.90); RDW 13.6 % (11.5-15.5); WBC 19.9 k/uL (3.8-10.6)
[2018-05-12] MEDS ORDERED: SODIUM CHLORIDE 0.9% 2,000 ML IV ONE (00:31)
[2018-05-12 01:52] LABS: Anisocytosis (M) Present
[2018-05-12 02:47] VITALS: RESP 16
[2018-05-12 04:24] VITALS: BP 118/60; PULSE 58; TEMP 98.5
[2018-05-12 04:30] LABS: Amorphous Sediment,Urine Rare /hpf; Appearance,Urine Clear (Clear); Bilirubin,Urine Negative (Negative); Blood,Urine Trace (Negative); Color,Urine Yellow; Glucose,Urine (UA) Negative (Negative); Hyaline Casts,Urine 3 /lpf (0-2); Ketones,Urine Trace (Negative); Leukocyte Esterase,Urine Negative (Negative); Mucus,Urine Occasional /hpf; Nitrite,Urine Negative (Negative); PH, Urine 5.5 (5.0-8.0); Protein,Urine 1+ (Negative); RBC,Urine <1 /hpf (0-5); Specific Gravity,Urine 1.015 (1.001-1.035); Squamous Epithelial Cell,Urine <1 /hpf (0-4); Urobilinogen,Urine <2.0 mg/dL (<2.0); WBC,Urine 1 /hpf (0-5)
[2018-05-12 04:34] LABS: Amphetamine Screen,Urine Not Detected (NotDetected); Barbiturate Screen,Urine Not Detected (NotDetected); Benzodiazepines Screen,Urine Not Detected (NotDetected); Cocaine Screen,Urine Not Detected (NotDetected); Methadone Screen, Urine Not Detected (NotDetected); Opiate Screen,Urine Detected (NotDetected); Oxycodone Screen, Urine Not Detected (NotDetected); Phencyclidine Screen,Urine Not Detected (NotDetected); Tricyclic Antidepressant,Urine Not Detected (NotDetected); Urn Cannabinoid Scrn Detected (NotDetected)
== END 2018-05-12 04:27 | disposition home or self-care (01) ==
LOC: EC 23:37
DX: G40.909 Epilepsy, unspecified, not intractable, without status epilepticus (principal); F17.200 Nicotine dependence, unspecified, uncomplicated; Z91.14 Patient's other noncompliance with medication regimen; Z79.899 Other long term (current) drug therapy; Z88.5 Allergy status to narcotic agent; Z88.6 Allergy status to analgesic agent; Z91.048 Other nonmedicinal substance allergy status; Z88.8 Allergy status to other drugs, medicaments and biological substances
CPT/HCPCS: 99284; 96365; 96361 ×3; 36415 ×2; 93005; 80164; 80053; 83605 ×2; 85025; 81001; 80306; J1953

== ENCOUNTER 2018-05-24 11:22 | Emergency (ER) | payer OTHER ==
[2018-05-24] MEDS ORDERED: SODIUM CHLORIDE 0.9% 1,000 ML IV STA (12:09)
[2018-05-24] MEDS ORDERED: levETIRAcetam IV 1,000 MG in SALINE 1 100ML.BAG IVPB STA (12:10)
[2018-05-24] MEDS ORDERED: SODIUM CHLORIDE 0.9% 1,000 ML IV SCH (12:15)
--- NOTE | 2018-05-24 12:26 | ED ---
Seizure HPI - General Chief Complaint: Seizure Stated Complaint: seizure Time Seen by Provider: 05/24/18 11:27 Source: patient, family, EMS, RN notes reviewed, old records reviewed Mode of arrival: EMS Limitations: no limitations - History of Present Illness Initial Comments: Patient is a 23-year-old male who presents emergency room states complaint of seizure-like activity. He does admit to having alcohol and marijuana use last night. He had it approximately an 8-10 minute tonic-clonic seizure. He did not hit his head. This was witnessed by uncle they called the ambulance. Patient reports emergency department process rectal. Most of the history is obtained from the elbow. He does not know he's been compliant with his medications. Patient does have a history of seizure disorder. Keppra and Depakote. - Related Data Home Medications Medication Instructions Recorded Confirmed Divalproex [Depakote] 750 mg PO TID 05/11/18 05/11/18 levETIRAcetam [Keppra] 1,000 mg PO DAILY 05/11/18 05/11/18 Allergies Allergy/AdvReac Type Severity Reaction Status Date / Time codeine Allergy Swelling Verified 05/24/18 11:28 ibuprofen Allergy Unknown Verified 05/24/18 11:28 lactose Allergy Unknown Verified 05/24/18 11:28 phenytoin [From Dilantin] Allergy Unknown Verified 05/24/18 11:28 Review of Systems ROS Statement: Those systems with pertinent positive or pertinent negative responses have been documented in the HPI. ROS Other: All systems not noted in ROS Statement are negative. Past Medical History Past Medical History: Seizure Disorder Additional Past Medical History / Comment(s): Narcolepsy History of Any Multi-Drug Resistant Organisms: None Reported Past Surgical History: No Surgical Hx Reported Past Psychological History: ADD/ADHD, Anxiety, Depression Smoking Status: Current every day smoker Past Alcohol Use History: Occasional Past Drug Use History: Marijuana General Exam - General Exam Comments Initial Comments: 23-year-old male. arrives postictal. Patient appears in no acute distress. Limitations: no limitations General appearance: alert Head exam: Present: atraumatic, normocephalic, normal inspection Eye exam: Present: normal appearance, PERRL, EOMI. Absent: scleral icterus, conjunctival injection, periorbital swelling ENT exam: Present: normal exam, mucous membranes moist Neck exam: Present: normal inspection. Absent: tenderness, meningismus, lymphadenopathy Respiratory exam: Present: normal lung sounds bilaterally. Absent: respiratory distress, wheezes, rales, rhonchi, stridor Extremities exam: Present: normal inspection, full ROM, normal capillary refill. Absent: tenderness, pedal edema, joint swelling, calf tenderness Back exam: Present: normal inspection Neurological exam: Present: alert, oriented X3, CN II-XII intact Psychiatric exam: Present: normal affect, normal mood Skin exam: Present: warm, dry, intact, normal color. Absent: rash Course Vital Signs 05/24/18 05/24/18 05/24/18 11:29 11:30 12:00 Pulse Rate 70 71 Respiratory 16 16 Rate Blood Pressure 121/71 124/63 121/71 O2 Sat by Pulse 99 Oximetry 05/24/18 05/24/18 05/24/18 12:30 13:00 13:30 Pulse Rate 71 60 49 L Respiratory 20 14 18 Rate Blood Pressure 107/50 104/54 114/69 O2 Sat by Pulse 100 Oximetry Medical Decision Making - Medical Decision Making Patient's 23-year-old male who has a long-standing history of noncompliance with seizure medications presents emergency department today with a minute tonic clonic seizure. EMS gave the Patient Ativan on arrival the scene. Patient recently emergency department postictal. Most history obtained from patient's uncle. Patient then slowly became aroused after receiving fluids. This time patient's labwork was reviewed and unremarkable. Patient was given a loading dose of Keppra. He states he's been off of his medications for the past few days. He apparently supposed to [place] at this level is also detected in his blood work. Discussed the Patient needs to follow-up with PCP and neurology. Discussed return primary's. He states that he will start his medication and his medications at his aunt's house. Patient agrees treatment plan will comply. Term parameters were discussed. - Lab Data Result diagrams: 05/24/18 12:20 05/24/18 12:20 Lab Results 05/24/18 05/24/18 05/24/18 Range/Units 12:20 12:20 13:05 WBC 6.5 (3.8-10.6) k/uL RBC 5.21 (4.30-5.90) m/uL Hgb 14.7 (13.0-17.5) gm/dL Hct 44.5 (39.0-53.0) % MCV 85.3 D (80.0-100.0) fL MCH 28.1 (25.0-35.0) pg MCHC 33.0 (31.0-37.0) g/dL RDW 13.1 (11.5-15.5) % Plt Count 206 (150-450) k/uL Neutrophils % 63 % Lymphocytes % 23 % Monocytes % 10 % Eosinophils % 2 % Basophils % 0 % Neutrophils # 4.1 (1.3-7.7) k/uL Lymphocytes # 1.5 (1.0-4.8) k/uL Monocytes # 0.7 (0-1.0) k/uL Eosinophils # 0.1 (0-0.7) k/uL Basophils # 0.0 (0-0.2) k/uL Sodium 141 (137-145) mmol/L Potassium 3.9 (3.5-5.1) mmol/L Chloride 110 H (98-107) mmol/L Carbon Dioxide 25 (22-30) mmol/L Anion Gap 6 mmol/L BUN 9 (9-20) mg/dL Creatinine 0.96 (0.66-1.25) mg/dL Est GFR (CKD-EPI)AfAm >90 (>60 ml/min/1.73 sqM) Est GFR (CKD-EPI)NonAf >90 (>60 ml/min/1.73 sqM) Glucose 87 (74-99) mg/dL Calcium 9.4 (8.4-10.2) mg/dL Total Bilirubin 0.4 (0.2-1.3) mg/dL AST 26 (17-59) U/L ALT 26 (21-72) U/L Alkaline Phosphatase 42 (38-126) U/L Total Protein 6.9 (6.3-8.2) g/dL Albumin 4.2 (3.5-5.0) g/dL Urine Color Light Yellow Urine Appearance Cloudy (Clear) Urine pH 5.5 (5.0-8.0) Ur Specific [place] 1.010 (1.001-1.035) Urine Protein 1+ H (Negative) Urine Glucose (UA) Negative (Negative) Urine Ketones Trace H (Negative) Urine Blood Small H (Negative) Urine Nitrite Negative (Negative) Urine Bilirubin Negative (Negative) Urine Urobilinogen <2.0 (<2.0) mg/dL Ur Leukocyte Esterase Negative (Negative) Urine RBC <1 (0-5) /hpf Urine Mucus Rare H (None) /hpf Urine Opiates Screen Not Detected (NotDetected) Ur Oxycodone Screen Not Detected (NotDetected) Urine Methadone Screen Not Detected (NotDetected) Ur Propoxyphene Screen Not Detected (NotDetected) Ur Barbiturates Screen Not Detected (NotDetected) Valproic Acid <10.0 ug/mL U Tricyclic Antidepress Not Detected (NotDetected) Ur Phencyclidine Scrn Not Detected (NotDetected) Ur Amphetamines Screen Not Detected (NotDetected) U Methamphetamines Scrn Not Detected (NotDetected) U Benzodiazepines Scrn Not Detected (NotDetected) Urine Cocaine Screen Not Detected (NotDetected) U Marijuana (THC) Screen Detected H (NotDetected) Serum Alcohol <10 mg/dL 05/24/18 14:45 EKG shows sinus rate R he was sinus arrhythmia. Otherwise normal EKG. Majority 55 bpm. LA interval is 1:30 milliseconds. QRS duration 92 ms. QT QTc is 390/373 ms. Disposition Clinical Impression: Noncompliance with medication regimen, Generalized seizure Disposition: HOME SELF-CARE Condition: Good Instructions: Recurrent Seizures in Adults (ED) Additional Instructions: Patient advised to taking medications as prescribed. Follow-up with primary care provider and neurology. Return to emergency department if any alarming signs or symptoms occur. Is patient prescribed a controlled substance at d/c from ED?: No Referrals: Nayan Mendoza MD [Primary Care Provider] - 1-2 days Time of Disposition: 14:07
[2018-05-24 12:40] LABS: Basophils % (A) 0 %; Eosinophils # (A) 0.1 k/uL (0-0.7); Eosinophils % (A) 2 %; HCT 44.5 % (39.0-53.0); HGB 14.7 gm/dL (13.0-17.5); Lymphocytes # (A) 1.5 k/uL (1.0-4.8); Lymphocytes % (A) 23 %; MCH 28.1 pg (25.0-35.0); Mean Platelet Volume 6.9; Monocytes # (A) 0.7 k/uL (0-1.0); Monocytes % (A) 10 %; Neutrophils # (A) 4.1 k/uL (1.3-7.7); Neutrophils % (A) 63 %; Platelet Count 206 k/uL (150-450); RBC 5.21 m/uL (4.30-5.90); RDW 13.1 % (11.5-15.5); WBC 6.5 k/uL (3.8-10.6)
[2018-05-24 12:44] LABS: MCV 85.3 fL (80.0-100.0)
[2018-05-24 12:50] LABS: ALT 26 U/L (21-72); AST 26 U/L (17-59); Albumin 4.2 g/dL (3.5-5.0); Alcohol <10 mg/dL; Alkaline Phosphatase 42 U/L (38-126); Anion Gap 6 mmol/L; Blood Urea Nitrogen 9 mg/dL (9-20); Calcium 9.4 mg/dL (8.4-10.2); Carbon Dioxide 25 mmol/L (22-30); Chloride 110 mmol/L (98-107); Glucose 87 mg/dL (74-99); Potassium 3.9 mmol/L (3.5-5.1); Sodium 141 mmol/L (137-145); Total Bilirubin 0.4 mg/dL (0.2-1.3); Total Protein 6.9 g/dL (6.3-8.2)
[2018-05-24 12:55] LABS: Valproic Acid (Depakene) <10.0 ug/mL
[2018-05-24 13:33] LABS: Appearance,Urine Cloudy (Clear); Bilirubin,Urine Negative (Negative); Blood,Urine Small (Negative); Color,Urine Light Yellow; Glucose,Urine (UA) Negative (Negative); Ketones,Urine Trace (Negative); Leukocyte Esterase,Urine Negative (Negative); Mucus,Urine Rare /hpf; Nitrite,Urine Negative (Negative); PH, Urine 5.5 (5.0-8.0); Protein,Urine 1+ (Negative); RBC,Urine <1 /hpf (0-5); Urobilinogen,Urine <2.0 mg/dL (<2.0)
[2018-05-24 13:39] LABS: Cocaine Screen,Urine Not Detected (NotDetected); Opiate Screen,Urine Not Detected (NotDetected); Phencyclidine Screen,Urine Not Detected (NotDetected); Urn Cannabinoid Scrn Detected (NotDetected)
[2018-05-24 13:40] LABS: Amphetamine Screen,Urine Not Detected (NotDetected); Barbiturate Screen,Urine Not Detected (NotDetected); Benzodiazepines Screen,Urine Not Detected (NotDetected); Methadone Screen, Urine Not Detected (NotDetected); Oxycodone Screen, Urine Not Detected (NotDetected); Tricyclic Antidepressant,Urine Not Detected (NotDetected)
[2018-05-24 14:11] VITALS: BP 114/69; PULSE 49; RESP 18
== END 2018-05-24 14:17 | disposition home or self-care (01) ==
LOC: EC 11:22
DX: G40.909 Epilepsy, unspecified, not intractable, without status epilepticus (principal); Z91.14 Patient's other noncompliance with medication regimen; F17.200 Nicotine dependence, unspecified, uncomplicated; Z79.899 Other long term (current) drug therapy; Z88.5 Allergy status to narcotic agent; Z88.6 Allergy status to analgesic agent; Z91.011 Allergy to milk products; Z88.8 Allergy status to other drugs, medicaments and biological substances
CPT/HCPCS: 36415; 93005; 80164; 80053; 80177; 85025; 81001; 80306; 99285; 96374; 96361 ×2; G0480; J1953; 80320

== ENCOUNTER 2018-06-09 06:25 | Emergency (ER) | payer OTHER ==
[2018-06-09 06:32] VITALS: RESP 18
[2018-06-09] MEDS ORDERED: SODIUM CHLORIDE 0.9% 1,000 ML IV STA (06:34)
[2018-06-09 07:01] LABS: Basophils # (A) 0.1 k/uL (0-0.2); Basophils % (A) 1 %; Eosinophils # (A) 0.3 k/uL (0-0.7); Eosinophils % (A) 3 %; HCT 46.2 % (39.0-53.0); HGB 15.1 gm/dL (13.0-17.5); Lymphocytes # (A) 3.9 k/uL (1.0-4.8); Lymphocytes % (A) 44 %; MCH 28.2 pg (25.0-35.0); MCHC 32.8 g/dL (31.0-37.0); MCV 86.1 fL (80.0-100.0); Mean Platelet Volume 7.3; Monocytes # (A) 0.6 k/uL (0-1.0); Monocytes % (A) 7 %; Neutrophils # (A) 3.7 k/uL (1.3-7.7); Neutrophils % (A) 42 %; Platelet Count 179 k/uL (150-450); RBC 5.36 m/uL (4.30-5.90); RDW 12.4 % (11.5-15.5); WBC 8.8 k/uL (3.8-10.6)
[2018-06-09 07:10] LABS: ALT 20 U/L (21-72); AST 28 U/L (17-59); Albumin 4.3 g/dL (3.5-5.0); Alkaline Phosphatase 43 U/L (38-126); Anion Gap 15 mmol/L; Blood Urea Nitrogen 11 mg/dL (9-20); Calcium 9.7 mg/dL (8.4-10.2); Carbon Dioxide 18 mmol/L (22-30); Chloride 108 mmol/L (98-107); Glucose 86 mg/dL (74-99); Potassium 4.3 mmol/L (3.5-5.1); Sodium 141 mmol/L (137-145); Total Bilirubin 0.4 mg/dL (0.2-1.3)
[2018-06-09 07:15] LABS: Valproic Acid (Depakene) <10.0 ug/mL
--- NOTE | 2018-06-09 07:19 | ED ---
General Adult HPI - General Chief complaint: Seizure Stated complaint: Seizure Time Seen by Provider: 06/09/18 07:07 Source: EMS, RN notes reviewed Mode of arrival: EMS Limitations: no limitations - History of Present Illness Initial comments: This is a 23-year-old male who presents emergency Department and he is not responding at this point time to any questions. According to EMS family stated he had 2 seizures lasting 5 minutes apiece. Patient family stated that the seizures were about 15 minutes apart. EMS stated that when they arrived he was alert and talking to him was able to walk down to the aunt. Currently patient he was postictal or is just refusing to answer questions. No family is with no further history is available this time. - Related Data Home Medications Medication Instructions Recorded Confirmed Divalproex ER [Depakote ER] 500 mg PO DAILY 06/09/18 06/09/18 Divalproex Sodium [Depakote ER] 250 mg PO DAILY 06/09/18 06/09/18 levETIRAcetam 1,000 mg PO DAILY 06/09/18 06/09/18 Allergies Allergy/AdvReac Type Severity Reaction Status Date / Time codeine Allergy Swelling Verified 06/09/18 06:33 ibuprofen Allergy Unknown Verified 06/09/18 06:33 lactose Allergy Unknown Verified 06/09/18 06:33 phenytoin [From Dilantin] Allergy Unknown Verified 06/09/18 06:33 Review of Systems ROS Statement: Those systems with pertinent positive or pertinent negative responses have been documented in the HPI. ROS Other: All systems not noted in ROS Statement are negative. Past Medical History Past Medical History: Seizure Disorder Additional Past Medical History / Comment(s): Narcolepsy History of Any Multi-Drug Resistant Organisms: None Reported Past Surgical History: No Surgical Hx Reported Past Psychological History: ADD/ADHD, Anxiety, Depression Smoking Status: Current every day smoker Past Alcohol Use History: Occasional Past Drug Use History: Marijuana General Exam - General Exam Comments Initial Comments: GENERAL: Patient is well-developed and well-nourished. Patient is nontoxic and well- hydrated and is in no acute distress. ENT: Neck is soft and supple. No significant lymphadenopathy is noted. Oropharynx is clear. Moist mucous membranes. EYES: The sclera were anicteric and conjunctiva were pink and moist. Extraocular movements were intact and pupils were equal round and reactive to light. Eyelids were unremarkable. PULMONARY: Unlabored respirations. Good breath sounds bilaterally. No audible rales rhonchi or wheezing was noted. CARDIOVASCULAR: There is a regular rate and rhythm without any murmurs gallops or rubs. ABDOMEN: Soft and nontender with normal bowel sounds. No palpable organomegaly was noted. There is no palpable pulsatile mass. SKIN: Skin is clear with no lesions or rashes and otherwise unremarkable. NEUROLOGIC: Patient is postictal. Cranial nerves II through XII are grossly intact. Motor and sensory are also intact. Normal speech, volume and content. Symmetrical smile. MUSCULOSKELETAL: Normal extremities with adequate strength and full range of motion. LYMPHATICS: No significant lymphadenopathy is noted PSYCHIATRIC: Normal psychiatric evaluation. Limitations: no limitations Course Vital Signs 06/09/18 06/09/18 06/09/18 06:27 07:50 08:20 Temperature 98.3 F Pulse Rate 86 66 75 Respiratory 18 18 18 Rate Blood Pressure 109/61 96/59 101/53 O2 Sat by Pulse 95 98 99 Oximetry Medical Decision Making - Medical Decision Making EKG shows normal sinus rhythm at 70 bpm IN interval 234 QRS is 92 QT interval 376 QTC is 406. Patient's EKG shows no ST segment elevation or depression or T- wave abnormalities noted. Patient insists he takes all of his Depakote as prescribed and Keppra however his Depakote level was less than 10 slightly gave him 1000 g of Depakote here and he stated he would follow-up with Dr. Khan in. - Lab Data Result diagrams: 06/09/18 06:30 06/09/18 06:30 Lab Results 06/09/18 06/09/18 06/09/18 Range/Units 06:30 06:30 07:10 WBC 8.8 (3.8-10.6) k/uL RBC 5.36 (4.30-5.90) m/uL Hgb 15.1 (13.0-17.5) gm/dL Hct 46.2 (39.0-53.0) % MCV 86.1 (80.0-100.0) fL MCH 28.2 (25.0-35.0) pg MCHC 32.8 (31.0-37.0) g/dL RDW 12.4 (11.5-15.5) % Plt Count 179 (150-450) k/uL Neutrophils % 42 % Lymphocytes % 44 % Monocytes % 7 % Eosinophils % 3 % Basophils % 1 % Neutrophils # 3.7 (1.3-7.7) k/uL Lymphocytes # 3.9 (1.0-4.8) k/uL Monocytes # 0.6 (0-1.0) k/uL Eosinophils # 0.3 (0-0.7) k/uL Basophils # 0.1 (0-0.2) k/uL Sodium 141 (137-145) mmol/L Potassium 4.3 (3.5-5.1) mmol/L Chloride 108 H (98-107) mmol/L Carbon Dioxide 18 L (22-30) mmol/L Anion Gap 15 mmol/L BUN 11 (9-20) mg/dL Creatinine 0.95 (0.66-1.25) mg/dL Est GFR (CKD-EPI)AfAm >90 (>60 ml/min/1.73 sqM) Est GFR (CKD-EPI)NonAf >90 (>60 ml/min/1.73 sqM) Glucose 86 (74-99) mg/dL Plasma Lactic Acid Arturo 2.2 H* (0.7-2.0) mmol/L Calcium 9.7 (8.4-10.2) mg/dL Total Bilirubin 0.4 (0.2-1.3) mg/dL AST 28 (17-59) U/L ALT 20 L (21-72) U/L Alkaline Phosphatase 43 (38-126) U/L Total Protein 7.0 (6.3-8.2) g/dL Albumin 4.3 (3.5-5.0) g/dL Valproic Acid <10.0 ug/mL Disposition Clinical Impression: Generalized seizure, Noncompliance with medication regimen Disposition: HOME SELF-CARE Instructions: Recurrent Seizures in Adults (ED) Is patient prescribed a controlled substance at d/c from ED?: No Referrals: Nayan Mendoza MD [Primary Care Provider] - 1-2 days Time of Disposition: 09:26
[2018-06-09] MEDS ORDERED: DIVALPROEX 500 MG TABLET.DR PO STA (09:23)
[2018-06-09 10:06] VITALS: BP 129/75; PULSE 93; TEMP 98.8
== END 2018-06-09 10:04 | disposition home or self-care (01) ==
LOC: EC 06:25
DX: G40.909 Epilepsy, unspecified, not intractable, without status epilepticus (principal); Z91.14 Patient's other noncompliance with medication regimen; F17.200 Nicotine dependence, unspecified, uncomplicated; Z79.899 Other long term (current) drug therapy; Z88.5 Allergy status to narcotic agent; Z88.6 Allergy status to analgesic agent; Z88.8 Allergy status to other drugs, medicaments and biological substances
CPT/HCPCS: 36415; 80053; 80164; 83605; 85025; 93005; 96360; 99284

== ENCOUNTER 2018-07-16 20:29 | Emergency (ER) | payer OTHER ==
[2018-07-16 20:43] VITALS: RESP 16
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
[2018-07-16 21:34] LABS: HCT 49.9 % (39.0-53.0); HGB 15.6 gm/dL (13.0-17.5); MCH 27.9 pg (25.0-35.0); MCHC 31.3 g/dL (31.0-37.0); MCV 89.3 fL (80.0-100.0); Mean Platelet Volume 8.1; Platelet Count 197 k/uL (150-450); RBC 5.58 m/uL (4.30-5.90); RDW 12.5 % (11.5-15.5); WBC 15.6 k/uL (3.8-10.6)
[2018-07-16 21:48] LABS: ALT 22 U/L (21-72); AST 41 U/L (17-59); Albumin 4.8 g/dL (3.5-5.0); Alkaline Phosphatase 50 U/L (38-126); Anion Gap 23 mmol/L; Blood Urea Nitrogen 9 mg/dL (9-20); Calcium 9.5 mg/dL (8.4-10.2); Carbon Dioxide 14 mmol/L (22-30); Chloride 107 mmol/L (98-107); Glucose 121 mg/dL (74-99); Potassium 4.2 mmol/L (3.5-5.1); Sodium 144 mmol/L (137-145); Total Bilirubin 0.4 mg/dL (0.2-1.3); Total Protein 7.6 g/dL (6.3-8.2)
[2018-07-16 21:53] LABS: Valproic Acid (Depakene) <10.0 ug/mL
--- NOTE | 2018-07-16 21:58 | CT ---
EXAMINATION TYPE: CT brain wo con DATE OF EXAM: 07/16/2018 COMPARISON: 12/12/2017 HISTORY: Seizure. CT DLP: 2382.4 mGycm. Automated Exposure Control for Dose Reduction was Utilized. TECHNIQUE: CT scan of the head is performed without contrast. FINDINGS: Ventricles of normal size. There is no mass effect nor midline shift. There is no sign of i ntracranial hemorrhage. Calvarium is intact. IMPRESSION: Negative head CT scan. No change.
[2018-07-16 22:24] LABS: Eosinophils # (M) 0.31 k/uL (0-0.7); Lymphocytes # (M) 11.54 k/uL (1.0-4.8); Monocytes # (M) 0.78 k/uL (0-1.0); Neutrophils # (M) 2.96 k/uL (1.3-7.7); Neutrophils % (M) 19 %; Nucleated Red Blood Cells 0 /100 WBC (0-0); Reactive Lymphocytes Present; Total Cells Counted 100; Toxic Vacuolation Present
[2018-07-16 22:45] VITALS: PULSE 57
[2018-07-16] MEDS ORDERED: DIVALPROEX 500 MG TABLET.DR PO ONE (22:50)
[2018-07-17 00:09] VITALS: BP 108/52; TEMP 98.7
== END 2018-07-17 00:35 | disposition home or self-care (01) ==
LOC: EC 20:29
DX: S00.03XA Contusion of scalp, initial encounter (principal); G40.909 Epilepsy, unspecified, not intractable, without status epilepticus; F32.9 Major depressive disorder, single episode, unspecified; F17.200 Nicotine dependence, unspecified, uncomplicated; Z79.899 Other long term (current) drug therapy; Z88.5 Allergy status to narcotic agent; Z88.6 Allergy status to analgesic agent; Z91.011 Allergy to milk products; Z88.8 Allergy status to other drugs, medicaments and biological substances; W19.XXXA Unspecified fall, initial encounter
CPT/HCPCS: 36415; 70450; 80053; 80164; 80177; 85025; 99285

== ENCOUNTER 2018-07-26 22:44 | Emergency (ER) | payer OTHER ==
[2018-07-27] MEDS ORDERED: ONDANSETRON 4 MG ODT STARTER PACK 2 TAB BTL PO STA (00:44)
--- NOTE | 2018-07-27 00:46 | ED ---
Nausea/Vomiting/Diarrhea HPI - General Chief complaint: Nausea/Vomiting/Diarrhea Stated complaint: alcohol, has epilespy Time Seen by Provider: 07/27/18 00:28 Source: patient Mode of arrival: ambulatory Limitations: no limitations - History of Present Illness Initial comments: 23-year-old male patient presents to the emergency department today for evaluation of nausea and vomiting. Patient does admit to drinking alcohol today. States he was drinking liquor. Patient states he does have a history of epilepsy and seizures. States he did have a seizure 2 days ago. Patient states he became concerned that he may have another one so he presented here for further evaluation. Patient denies any aura. Denies any seizure activity today. States he did take his antiepileptic medication earlier in the day. He denies any current headache, blurred vision, double vision, dizziness, or weakness. States other than the nausea he feels well. Denies any falls or injury to the head. He denies any abdominal pain, hematochezia, melena, or hematemesis. Patient denies any recent rash, fever, chills, shortness breath, chest pain, back pain, numbness, tingling, dizziness, weakness, hematuria, dysuria, urinary urgency, urinary frequency, or any other complaints. - Related Data Home Medications Medication Instructions Recorded Confirmed levETIRAcetam 1,000 mg PO DAILY 06/09/18 07/16/18 Divalproex Sodium [Depakote] 500 mg PO DAILY 07/16/18 07/16/18 Divalproex [Depakote] 250 mg PO DAILY 07/16/18 07/16/18 Allergies Allergy/AdvReac Type Severity Reaction Status Date / Time codeine Allergy Swelling Verified 07/26/18 23:02 ibuprofen Allergy Unknown Verified 07/26/18 23:02 lactose Allergy Unknown Verified 07/26/18 23:02 phenytoin [From Dilantin] Allergy Unknown Verified 07/26/18 23:02 Review of Systems ROS Statement: Those systems with pertinent positive or pertinent negative responses have been documented in the HPI. ROS Other: All systems not noted in ROS Statement are negative. Past Medical History Past Medical History: Seizure Disorder Additional Past Medical History / Comment(s): Narcolepsy History of Any Multi-Drug Resistant Organisms: None Reported Past Surgical History: No Surgical Hx Reported Past Psychological History: ADD/ADHD, Anxiety, Depression Smoking Status: Current every day smoker Past Alcohol Use History: Occasional Past Drug Use History: Marijuana General Exam Limitations: no limitations General appearance: alert, in no apparent distress, other (This is a well- developed, well-nourished adult male patient in no acute distress. Vital signs upon presentation are temperature 97.4F, pulse 90, respirations 18, blood pressure 118/75, pulse ox 100% on room air) Eye exam: Present: normal appearance, PERRL, EOMI. Absent: scleral icterus, conjunctival injection, periorbital swelling ENT exam: Present: normal exam, normal oropharynx, mucous membranes moist Respiratory exam: Present: normal lung sounds bilaterally. Absent: respiratory distress, wheezes, rales, rhonchi, stridor Cardiovascular Exam: Present: regular rate, normal rhythm, normal heart sounds. Absent: systolic murmur, diastolic murmur, rubs, gallop, clicks GI/Abdominal exam: Present: soft, normal bowel sounds. Absent: distended, tenderness, guarding, rebound, rigid Neurological exam: Present: alert, oriented X3, CN II-XII intact, other ( Strength in all 4 extremities is 5/5.) Psychiatric exam: Present: normal affect, normal mood Skin exam: Present: warm, dry, intact, normal color. Absent: rash Course Vital Signs 07/26/18 07/27/18 22:58 01:03 Temperature 97.4 F L 98.5 F Pulse Rate 90 61 Respiratory 18 16 Rate Blood Pressure 118/75 125/90 O2 Sat by Pulse 100 99 Oximetry Medical Decision Making - Medical Decision Making 23-year-old male patient presents to the emergency department today for evaluation of nausea and vomiting after becoming intoxicated today. Patient currently reports feeling well other than feeling intoxicated. He has had no seizure activity today. Physical examination is unremarkable. He is neurologically intact with no focal deficits. Patient will be given Zofran and discharged home to follow-up with his primary care physician and neurologist. Return parameters were discussed in detail. He verbalizes understanding and agrees with this plan Disposition Clinical Impression: Alcohol intoxication, Nausea Disposition: HOME SELF-CARE Condition: Good Instructions: Alcohol Intoxication (ED), Acute Nausea and Vomiting (ED) Additional Instructions: Continue taking seizure medications as directed. Follow-up with her primary care physician for recheck in 1-2 days. Return immediately for any new, worsening, or concerning symptoms. Is patient prescribed a controlled substance at d/c from ED?: No Referrals: Nayan Mendoza MD [Primary Care Provider] - 1-2 days Maddie Cowart MD [STAFF PHYSICIAN] - 1-2 days Time of Disposition: 00:46
[2018-07-27 01:06] VITALS: BP 125/90; PULSE 61; RESP 16; TEMP 98.5
== END 2018-07-27 01:08 | disposition home or self-care (01) ==
LOC: EC 22:44
DX: F10.129 Alcohol abuse with intoxication, unspecified (principal); G40.909 Epilepsy, unspecified, not intractable, without status epilepticus; F17.200 Nicotine dependence, unspecified, uncomplicated; Z79.899 Other long term (current) drug therapy; Z88.5 Allergy status to narcotic agent; Z88.6 Allergy status to analgesic agent; Z91.011 Allergy to milk products; Z88.8 Allergy status to other drugs, medicaments and biological substances
CPT/HCPCS: 99283; S0119

== ENCOUNTER 2018-11-25 02:40 | Emergency (ER) | payer OTHER ==
[2018-11-25 02:47] VITALS: BP 144/82; PULSE 68; RESP 18; TEMP 98.6
--- NOTE | 2018-11-25 03:12 | XR ---
EXAM: XR Right Ankle Complete, 3 or More Views CLINICAL HISTORY: Twisting injury with pain TECHNIQUE: Frontal, lateral and oblique views of the right ankle. COMPARISON: No relevant prior studies available. FINDINGS: Bones/joints: Degenerative changes with hypertrophic spurring involving the distal tibia are noted at the right ankle. No acute osseous abnormality identified. No dislocation. Soft tissues: Mild soft tissue swelling overlying the lateral malleolus. No radiopaque foreign body. IMPRESSION: Mild soft tissue swelling overlying the lateral malleolus. No acute osseous abnormality or dislocation involving the right ankle.
--- NOTE | 2018-11-25 03:13 | XR ---
EXAM: XR Right Foot Complete, 3 or More Views CLINICAL HISTORY: Twisting injury with pain TECHNIQUE: Frontal, lateral and oblique views of the right foot. COMPARISON: No relevant prior studies available. FINDINGS: Bones/joints: Unremarkable. No acute fracture. No dislocation. Soft tissues: Unremarkable. No radiopaque foreign body. IMPRESSION: Normal right foot radiographs.
[2018-11-25] MEDS ORDERED: KETOROLAC 30 MG/ML 1 ML VIAL IM STA (03:22)
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
== END 2018-11-25 03:50 | disposition home or self-care (01) ==
LOC: EC 02:40
DX: S93.401A Sprain of unspecified ligament of right ankle, initial encounter (principal); S96.911A Strain of unspecified muscle and tendon at ankle and foot level, right foot, initial encounter; G40.909 Epilepsy, unspecified, not intractable, without status epilepticus; F17.200 Nicotine dependence, unspecified, uncomplicated; Z79.899 Other long term (current) drug therapy; Z88.5 Allergy status to narcotic agent; Z88.6 Allergy status to analgesic agent; Z88.8 Allergy status to other drugs, medicaments and biological substances; X50.1XXA Overexertion from prolonged static or awkward postures, initial encounter; Y92.89 Other specified places as the place of occurrence of the external cause
CPT/HCPCS: 99283

== ENCOUNTER 2018-11-28 02:12 | Emergency (ER) | payer OTHER ==
[2018-11-28 02:24] VITALS: BP 120/68; PULSE 105; TEMP 98.2
--- NOTE | 2018-11-28 02:53 | XR ---
EXAM: XR Right Ankle Complete, 3 or More Views CLINICAL HISTORY: ITS.REASON XR Reason: Pain - re-injured, is weight bearing. TECHNIQUE: Frontal, lateral and oblique views of the right ankle. COMPARISON: 11/25/18 FINDINGS: Bones/joints: Unremarkable. No acute fracture. No dislocation. Soft tissues: Suspect soft tissue swelling. IMPRESSION: No acute fracture or dislocation.
--- NOTE | 2018-11-28 03:42 | CT ---
EXAM: CT Head Without Intravenous Contrast CLINICAL HISTORY: ITS.REASON CT Reason: Pain TECHNIQUE: Axial computed tomography images of the head/brain without intravenous contrast. CT exam was performed using one or more of the following dose reduction techniques: automated exposure control, adjustment of the mA and/or kV according to patient size, and/or use of iterative reconstruction technique. COMPARISON: 12/12/17 FINDINGS: Brain: No hemorrhage. No mass effect. Fisher white junction preserved. Ventricles: Age appropriate Bones/joints: No acute fracture. Sinuses: Well aerated as visualized. Mastoid air cells: Well aerated as visualized. IMPRESSION: No acute intracranial findings EXAM: CT Cervical Spine Without Intravenous Contrast CLINICAL HISTORY: ITS.REASON CT Reason: Pain TECHNIQUE: Axial computed tomography images of the cervical spine without intravenous contrast. This CT exam was performed using one or more of the following dose reduction techniques: automated exposure control, adjustment of the mA and/or kV according to patient size, and/or use of iterative reconstruction technique. COMPARISON: No relevant prior studies available. FINDINGS: No acute fracture or subluxation. IMPRESSION: No acute fracture. DLP is 1201 mGy-cm. (Combined for CT head, facial bones and cervical spine same date).
--- NOTE | 2018-11-28 03:43 | CT ---
EXAM: CT Facial Without Intravenous Contrast CLINICAL HISTORY: ITS.REASON CT Reason: Pain TECHNIQUE: Axial computed tomography images of the facial without intravenous contrast. This CT exam was performed using one or more of the following dose reduction techniques: automated exposure control, adjustment of the mA and/or kV according to patient size, and/or use of iterative reconstruction technique. DLP is 1201 mGy-cm. (Combined for CT head, facial bones and cervical spine same date). COMPARISON: No relevant prior studies available. FINDINGS: No acute fracture. Paranasal sinuses well-aerated. IMPRESSION: No acute fracture.
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
[2018-11-28 04:27] VITALS: RESP 18
== END 2018-11-28 04:26 | disposition home or self-care (01) ==
LOC: EC 02:12
DX: M25.571 Pain in right ankle and joints of right foot (principal); R51 Headache; G40.909 Epilepsy, unspecified, not intractable, without status epilepticus; F17.200 Nicotine dependence, unspecified, uncomplicated; Z79.899 Other long term (current) drug therapy; Z88.5 Allergy status to narcotic agent; Z88.6 Allergy status to analgesic agent; Z91.011 Allergy to milk products; Z88.8 Allergy status to other drugs, medicaments and biological substances; Y04.8XXA Assault by other bodily force, initial encounter; Y93.01 Activity, walking, marching and hiking
CPT/HCPCS: 29515; 70450; 70486; 72125; 99284

== ENCOUNTER 2019-02-01 12:55 | Emergency (ER) | payer OTHER ==
[2019-02-01 13:06] VITALS: BP 133/71; PULSE 63; RESP 18; TEMP 98.8
[2019-02-01] MEDS ORDERED: levETIRAcetam 500 MG TAB PO STA (13:24)
[2019-02-01] MEDS ORDERED: DIVALPROEX 500 MG TABLET.DR PO STA (13:26)
[2019-02-01] MEDS ORDERED: DIVALPROEX 250 MG TABLET.DR PO STA (13:26)
--- NOTE | 2019-02-01 13:30 | ED ---
Seizure HPI - General Chief Complaint: Seizure Stated Complaint: Seizure Time Seen by Provider: 02/01/19 13:10 Source: patient, RN notes reviewed Mode of arrival: ambulatory Limitations: no limitations - History of Present Illness Initial Comments: 22-year-old male presents emergency Department for medication refill. Patient has a history of seizures states that his seizure a few days ago. Patient states that he ran out of his Keppra and Depakote. Patient has not taken any doses since yesterday. Patient denies any fevers chills no chest pain or s hortness breath no headache no dizziness. Patient offers no complaints other than needing medication refill at this time. - Related Data Previous Rx's Medication Instructions Recorded Acetaminophen Tab [Tylenol Tab] 500 mg PO Q6H #30 tablet 11/25/18 Divalproex Sodium [Depakote] 500 mg PO DAILY #30 tablet. 02/01/19 Divalproex [Depakote] 250 mg PO DAILY #30 tablet. 02/01/19 levETIRAcetam 1,000 mg PO DAILY #30 tablet 02/01/19 Allergies Allergy/AdvReac Type Severity Reaction Status Date / Time codeine Allergy Swelling Verified 02/01/19 13:03 ibuprofen Allergy Unknown Verified 02/01/19 13:03 lactose Allergy Unknown Verified 02/01/19 13:03 phenytoin [From Dilantin] Allergy Unknown Verified 02/01/19 13:03 Review of Systems ROS Statement: Those systems with pertinent positive or pertinent negative responses have been documented in the HPI. ROS Other: All systems not noted in ROS Statement are negative. Past Medical History Past Medical History: Seizure Disorder Additional Past Medical History / Comment(s): Narcolepsy History of Any Multi-Drug Resistant Organisms: None Reported Past Surgical History: No Surgical Hx Reported Past Psychological History: ADD/ADHD, Anxiety, Depression Smoking Status: Current every day smoker Past Alcohol Use History: Occasional Past Drug Use History: Marijuana General Exam Limitations: no limitations General appearance: alert, in no apparent distress Head exam: Present: atraumatic, normocephalic, normal inspection Eye exam: Present: normal appearance, PERRL, EOMI. Absent: scleral icterus, conjunctival injection, periorbital swelling ENT exam: Present: normal exam, normal oropharynx, mucous membranes moist Neck exam: Present: normal inspection, full ROM. Absent: tenderness, meningismus, lymphadenopathy Respiratory exam: Present: normal lung sounds bilaterally. Absent: respiratory distress, wheezes, rales, rhonchi, stridor Cardiovascular Exam: Present: regular rate, normal rhythm, normal heart sounds. Absent: systolic murmur, diastolic murmur, rubs, gallop, clicks GI/Abdominal exam: Present: soft, normal bowel sounds. Absent: distended, tenderness, guarding, rebound, rigid Neurological exam: Present: alert, oriented X3, CN II-XII intact, reflexes normal. Absent: motor sensory deficit Skin exam: Present: warm, dry, intact, normal color. Absent: rash Course Vital Signs 02/01/19 13:03 Temperature 98.8 F Pulse Rate 63 Respiratory 18 Rate Blood Pressure 133/71 O2 Sat by Pulse 98 Oximetry Medical Decision Making - Medical Decision Making 23-year-old male presented for medication refill. Patient will be given a prescription for Depakote and Keppra as he takes. Patient is advised that needs to follow with his PCP and return for any worsening symptoms. Disposition Clinical Impression: Hx of seizure disorder, Medication refill Disposition: HOME SELF-CARE Condition: Stable Instructions (If sedation given, give patient instructions): Recurrent Seizures in Adults (ED) Additional Instructions: Please return to the Emergency Department if symptoms worsen or any other concerns. Prescriptions: Divalproex [Depakote] 250 mg PO DAILY #30 tablet. Divalproex Sodium [Depakote] 500 mg PO DAILY #30 tablet. levETIRAcetam 1,000 mg PO DAILY #30 tablet Is patient prescribed a controlled substance at d/c from ED?: No Referrals: Nayan Mendoza MD [Primary Care Provider] - 1-2 days Time of Disposition: 13:29
== END 2019-02-01 13:51 | disposition home or self-care (01) ==
LOC: EC 12:55
DX: Z76.0 Encounter for issue of repeat prescription (principal); G40.909 Epilepsy, unspecified, not intractable, without status epilepticus; F17.200 Nicotine dependence, unspecified, uncomplicated; Z88.5 Allergy status to narcotic agent; Z88.6 Allergy status to analgesic agent; Z88.8 Allergy status to other drugs, medicaments and biological substances; Z91.018 Allergy to other foods
CPT/HCPCS: 99283

== ENCOUNTER 2019-05-08 08:50 | Emergency (ER) | payer OTHER ==
[2019-05-08 08:54] VITALS: TEMP 97.6
[2019-05-08] MEDS ORDERED: SODIUM CHLORIDE 0.9% 1,000 ML IV STA (09:13)
[2019-05-08] MEDS ORDERED: levETIRAcetam IV 1,000 MG in SALINE 1 100ML.BAG IVPB STA (09:13)
[2019-05-08 09:46] LABS: Basophils # (A) 0.1 k/uL (0-0.2); Basophils % (A) 3 %; Eosinophils # (A) 0.1 k/uL (0-0.7); Eosinophils % (A) 2 %; HCT 45.1 % (39.0-53.0); HGB 15.1 gm/dL (13.0-17.5); Lymphocytes # (A) 2.2 k/uL (1.0-4.8); Lymphocytes % (A) 42 %; MCH 28.8 pg (25.0-35.0); MCHC 33.4 g/dL (31.0-37.0); MCV 86.2 fL (80.0-100.0); Mean Platelet Volume 6.1; Monocytes # (A) 0.3 k/uL (0-1.0); Monocytes % (A) 6 %; Neutrophils # (A) 2.4 k/uL (1.3-7.7); Neutrophils % (A) 47 %; Platelet Count 207 k/uL (150-450); RBC 5.23 m/uL (4.30-5.90); RDW 12.8 % (11.5-15.5); WBC 5.2 k/uL (3.8-10.6)
[2019-05-08 09:48] LABS: ALT 24 U/L (21-72); AST 28 U/L (17-59); African American GFR (CKD) >90 (>60 ml/min/1.73 sqM); Albumin 4.3 g/dL (3.5-5.0); Alkaline Phosphatase 42 U/L (38-126); Anion Gap 12 mmol/L; Blood Urea Nitrogen 12 mg/dL (9-20); Calcium 9.8 mg/dL (8.4-10.2); Carbon Dioxide 22 mmol/L (22-30); Chloride 107 mmol/L (98-107); Glucose 153 mg/dL (74-99); Potassium 4.1 mmol/L (3.5-5.1); Sodium 141 mmol/L (137-145); Total Bilirubin 0.6 mg/dL (0.2-1.3)
--- NOTE | 2019-05-08 10:21 | ED ---
Seizure HPI - General Chief Complaint: Seizure Stated Complaint: seizure Time Seen by Provider: 05/08/19 09:01 Source: patient Mode of arrival: wheelchair Limitations: no limitations - History of Present Illness Initial Comments: This a 24-year-old male with a history of seizure disorder who apparently has run out of his medications who presents with a seizure. He initially did not want to come in his significant other to augment to it. No complaints of headache dizziness blurry vision nausea vomiting or other symptoms no tongue biting no incontinence. Patient is on valproic acid/ Keppra. Complaint: seizure, other - Related Data Home Medications Medication Instructions Recorded Confirmed levETIRAcetam 1,000 mg PO BID 05/08/19 05/08/19 Previous Rx's Medication Instructions Recorded Divalproex ER [Depakote ER] 500 mg PO DAILY #60 tab 05/08/19 levETIRAcetam [Keppra] 1,000 mg PO Q12HR #30 tab 05/08/19 Allergies Allergy/AdvReac Type Severity Reaction Status Date / Time codeine Allergy Swelling Verified 05/08/19 10:23 ibuprofen Allergy Unknown Verified 05/08/19 10:23 lactose Allergy Unknown Verified 05/08/19 10:23 phenytoin [From Dilantin] Allergy Unknown Verified 05/08/19 10:23 Review of Systems ROS Statement: Those systems with pertinent positive or pertinent negative responses have been documented in the HPI. ROS Other: All systems not noted in ROS Statement are negative. Past Medical History Past Medical History: Seizure Disorder Additional Past Medical History / Comment(s): Narcolepsy History of Any Multi-Drug Resistant Organisms: None Reported Past Surgical History: No Surgical Hx Reported Past Psychological History: ADD/ADHD, Anxiety, Depression Smoking Status: Current every day smoker Past Alcohol Use History: Occasional Past Drug Use History: Marijuana General Exam - General Exam Comments Initial Comments: This is a well-developed well-nourished awake alert oriented 3 male Limitations: no limitations General appearance: alert, in no apparent distress Head exam: Present: atraumatic, normocephalic, normal inspection Eye exam: Present: normal appearance, PERRL, EOMI. Absent: scleral icterus, conjunctival injection, periorbital swelling ENT exam: Present: normal exam, mucous membranes moist Neck exam: Present: normal inspection, full ROM, other (No stridor JVD or bruits). Absent: tenderness, meningismus, lymphadenopathy Respiratory exam: Present: normal lung sounds bilaterally. Absent: respiratory distress, wheezes, rales, rhonchi, stridor Cardiovascular Exam: Present: regular rate, normal rhythm, normal heart sounds. Absent: systolic murmur, diastolic murmur, rubs, gallop, clicks GI/Abdominal exam: Present: soft, normal bowel sounds. Absent: distended, tenderness, guarding, rebound, rigid Extremities exam: Present: normal inspection, full ROM, normal capillary refill. Absent: tenderness, pedal edema, joint swelling, calf tenderness Back exam: Present: normal inspection Neurological exam: Present: alert, oriented X3, CN II-XII intact Psychiatric exam: Present: normal affect, normal mood Skin exam: Present: warm, dry, intact, normal color. Absent: rash Course Vital Signs 05/08/19 08:51 Temperature 97.6 F Pulse Rate 99 Respiratory 16 Rate Blood Pressure 116/61 O2 Sat by Pulse 98 Oximetry Medical Decision Making - Medical Decision Making I did reevaluate patient several occasions he is awake alert oriented 3 he is in satisfactory condition for discharge she will be given a prescription to refill his seizure medication. - Lab Data Result diagrams: 05/08/19 09:26 05/08/19 09:26 Lab Results 05/08/19 05/08/19 Range/Units 09:26 09:26 WBC 5.2 (3.8-10.6) k/uL RBC 5.23 (4.30-5.90) m/uL Hgb 15.1 (13.0-17.5) gm/dL Hct 45.1 (39.0-53.0) % MCV 86.2 (80.0-100.0) fL MCH 28.8 (25.0-35.0) pg MCHC 33.4 (31.0-37.0) g/dL RDW 12.8 (11.5-15.5) % Plt Count 207 (150-450) k/uL Neutrophils % 47 % Lymphocytes % 42 % Monocytes % 6 % Eosinophils % 2 % Basophils % 3 % Neutrophils # 2.4 (1.3-7.7) k/uL Lymphocytes # 2.2 (1.0-4.8) k/uL Monocytes # 0.3 (0-1.0) k/uL Eosinophils # 0.1 (0-0.7) k/uL Basophils # 0.1 (0-0.2) k/uL Sodium 141 (137-145) mmol/L Potassium 4.1 (3.5-5.1) mmol/L Chloride 107 (98-107) mmol/L Carbon Dioxide 22 (22-30) mmol/L Anion Gap 12 mmol/L BUN 12 (9-20) mg/dL Creatinine 1.05 (0.66-1.25) mg/dL Est GFR (CKD-EPI)AfAm >90 (>60 ml/min/1.73 sqM) Est GFR (CKD-EPI)NonAf >90 (>60 ml/min/1.73 sqM) Glucose 153 H (74-99) mg/dL Calcium 9.8 (8.4-10.2) mg/dL Total Bilirubin 0.6 (0.2-1.3) mg/dL AST 28 (17-59) U/L ALT 24 (21-72) U/L Alkaline Phosphatase 42 (38-126) U/L Total Protein 7.0 (6.3-8.2) g/dL Albumin 4.3 (3.5-5.0) g/dL Valproic Acid <10.0 ug/mL - EKG Data -: EKG Interpreted by Mi EKG shows normal: sinus rhythm Rate: bradycardia (Sinus bradycardia 59. Interval 136 QRS duration 98 QT since QTC 396/[address]-T wave changes) Disposition Clinical Impression: Epileptic seizure, generalized Disposition: HOME SELF-CARE Condition: Good Instructions (If sedation given, give patient instructions): Recurrent Seizures in Adults (ED) Additional Instructions: Medication prescriptions sent to your preferred pharmacy Prescriptions: Divalproex ER [Depakote ER] 500 mg PO DAILY #60 tab levETIRAcetam [Keppra] 1,000 mg PO Q12HR #30 tab Is patient prescribed a controlled substance at d/c from ED?: No Referrals: Nayan Mendoza MD [Primary Care Provider] - 1-2 days
[2019-05-08] MEDS ORDERED: DIVALPROEX 500 MG TABLET.DR PO STA (11:19)
[2019-05-08 11:53] VITALS: PULSE 61; RESP 18
[2019-05-08 11:55] VITALS: BP 125/82
== END 2019-05-08 12:33 | disposition home or self-care (01) ==
LOC: EC 08:50
DX: G40.409 Other generalized epilepsy and epileptic syndromes, not intractable, without status epilepticus (principal); F17.200 Nicotine dependence, unspecified, uncomplicated; Z88.5 Allergy status to narcotic agent; Z88.6 Allergy status to analgesic agent; Z88.8 Allergy status to other drugs, medicaments and biological substances; Z91.018 Allergy to other foods; Z79.899 Other long term (current) drug therapy
CPT/HCPCS: 99284; 96374; 96361 ×2; 36415; 93005; 80164; 80053; 85025; J1953

== ENCOUNTER 2019-09-02 18:11 | Observation (INO) | payer OTHER ==
[2019-09-02] MEDS ORDERED: SODIUM CHLORIDE 0.9% 1,000 ML IV STA (18:43)
[2019-09-02] MEDS ORDERED: levETIRAcetam IV 1,000 MG in SALINE 1 100ML.BAG IVPB STA (18:47)
[2019-09-02 19:29] LABS: ALT 26 U/L (4-49); AST 40 U/L (17-59); African American GFR (CKD) >90 (>60 ml/min/1.73 sqM); Albumin 4.8 g/dL (3.5-5.0); Alkaline Phosphatase 46 U/L (38-126); Anion Gap 14 mmol/L; Blood Urea Nitrogen 9 mg/dL (9-20); Carbon Dioxide 20 mmol/L (22-30); Chloride 105 mmol/L (98-107); Glucose 114 mg/dL (74-99); Non-African American GFR(CKD) >90 (>60 ml/min/1.73 sqM); Potassium 5.1 mmol/L (3.5-5.1); Sodium 139 mmol/L (137-145); Total Bilirubin 0.6 mg/dL (0.2-1.3); Total Protein 7.6 g/dL (6.3-8.2)
[2019-09-02 19:36] LABS: Basophils # (A) 0.2 k/uL (0-0.2); Basophils % (A) 3 %; Eosinophils # (A) 0.1 k/uL (0-0.7); Eosinophils % (A) 1 %; HCT 47.8 % (39.0-53.0); HGB 15.8 gm/dL (13.0-17.5); Lymphocytes # (A) 1.6 k/uL (1.0-4.8); Lymphocytes % (A) 27 %; MCH 28.5 pg (25.0-35.0); MCHC 33.1 g/dL (31.0-37.0); MCV 86.2 fL (80.0-100.0); Mean Platelet Volume 7.7; Monocytes # (A) 0.4 k/uL (0-1.0); Monocytes % (A) 7 %; Neutrophils # (A) 3.7 k/uL (1.3-7.7); Neutrophils % (A) 61 %; Platelet Count 245 k/uL (150-450); RBC 5.54 m/uL (4.30-5.90); RDW 12.5 % (11.5-15.5)
[2019-09-02 19:50] LABS: Appearance,Urine Clear (Clear); Bacteria,Urine Rare /hpf; Bilirubin,Urine Negative (Negative); Blood,Urine Small (Negative); Color,Urine Light Yellow; Glucose,Urine (UA) Negative (Negative); Hyaline Casts,Urine 3 /lpf (0-2); Ketones,Urine Negative (Negative); Leukocyte Esterase,Urine Negative (Negative); Mucus,Urine Rare /hpf; Nitrite,Urine Negative (Negative); Protein,Urine 1+ (Negative); RBC,Urine 1 /hpf (0-5); Specific Gravity,Urine 1.009 (1.001-1.035); Squamous Epithelial Cell,Urine <1 /hpf (0-4); Urobilinogen,Urine <2.0 mg/dL (<2.0); WBC,Urine 1 /hpf (0-5)
[2019-09-02 19:54] LABS: Amphetamine Screen,Urine Not Detected (NotDetected); Barbiturate Screen,Urine Not Detected (NotDetected); Benzodiazepines Screen,Urine Not Detected (NotDetected); Cocaine Screen,Urine Not Detected (NotDetected); Methadone Screen, Urine Not Detected (NotDetected); Opiate Screen,Urine Not Detected (NotDetected); Oxycodone Screen, Urine Not Detected (NotDetected); Phencyclidine Screen,Urine Not Detected (NotDetected); Tricyclic Antidepressant,Urine Not Detected (NotDetected); Urn Cannabinoid Scrn Detected (NotDetected)
[2019-09-02] MEDS ORDERED: NALOXONE 0.4 MG/ML 1 ML VIAL IV PRN (20:55)
[2019-09-02] MEDS ORDERED: LORazepam 2 MG/ML INJ IV PRN (20:55)
[2019-09-02] MEDS ORDERED: ACETAMINOPHEN TAB 325 MG TAB PO PRN (20:55)
[2019-09-02] MEDS ORDERED: DIVALPROEX ER 500 MG TAB.ER.24H PO ONE (21:00)
--- NOTE | 2019-09-02 21:13 | ED ---
General Adult HPI - General Chief complaint: Seizure Stated complaint: seizure Time Seen by Provider: 09/02/19 18:39 Source: patient, EMS, RN notes reviewed, old records reviewed Mode of arrival: EMS Limitations: no limitations - History of Present Illness Initial comments: 24-year-old male with known seizure disorder presenting with a 15 minute tonic-c lonic seizure witnessed at home. Patient denying any pain complaints. Mildly confused but able to answer questions at the time my evaluation. He has been out of his medication for approximately 2 weeks. He was unable to see his primary care physician because he did not have identification. He takes Depakote and Keppra daily. Denies cough or dyspnea. Denies abdominal pain nausea vomiting. Denies focal numbness or weakness. Denies headache. - Related Data Home Medications Medication Instructions Recorded Confirmed levETIRAcetam 1,000 mg PO BID 05/08/19 05/08/19 Previous Rx's Medication Instructions Recorded Divalproex ER [Depakote ER] 500 mg PO DAILY #60 tab 05/08/19 levETIRAcetam [Keppra] 1,000 mg PO Q12HR #30 tab 05/08/19 Allergies Allergy/AdvReac Type Severity Reaction Status Date / Time codeine Allergy Swelling Verified 05/08/19 10:23 ibuprofen Allergy Unknown Verified 05/08/19 10:23 lactose Allergy Unknown Verified 05/08/19 10:23 phenytoin [From Dilantin] Allergy Unknown Verified 05/08/19 10:23 Review of Systems ROS Statement: Those systems with pertinent positive or pertinent negative responses have been documented in the HPI. ROS Other: All systems not noted in ROS Statement are negative. Past Medical History Past Medical History: Seizure Disorder Additional Past Medical History / Comment(s): Narcolepsy History of Any Multi-Drug Resistant Organisms: None Reported Past Surgical History: No Surgical Hx Reported Past Psychological History: ADD/ADHD, Anxiety, Depression Smoking Status: Current every day smoker Past Alcohol Use History: Occasional Past Drug Use History: Marijuana General Exam Limitations: no limitations General appearance: lethargic Head exam: Present: atraumatic, normocephalic Eye exam: Present: normal appearance, PERRL, EOMI ENT exam: Present: mucous membranes moist Respiratory exam: Present: normal lung sounds bilaterally. Absent: respiratory distress, wheezes Cardiovascular Exam: Present: regular rate, normal rhythm GI/Abdominal exam: Present: soft. Absent: distended, tenderness, guarding Extremities exam: Present: normal inspection, normal capillary refill. Absent: pedal edema Neurological exam: Present: alert, oriented X3, CN II-XII intact. Absent: motor sensory deficit Skin exam: Present: warm, dry, intact. Absent: cyanosis, diaphoretic Course Vital Signs 09/02/19 09/02/19 09/02/19 18:29 19:00 20:20 Temperature 97.5 F L Pulse Rate 65 62 82 Respiratory 16 18 18 Rate Blood Pressure 139/83 102/73 106/51 O2 Sat by Pulse 97 95 98 Oximetry EKG Findings - EKG Comments: EKG Findings:: EKG: Normal sinus rhythm, rightward axis, rate of 67, MT interval 118, QRS duration 96, QTC 393, no ST segment elevation Medical Decision Making - Medical Decision Making 24-year-old male with known seizure disorder presents with tonic-clonic seizure lasting approximately 15 minutes. Patient out of his medication. He is loaded with Keppra and given a dose of his Depakote in the emergency department. He has a normal electrolytes, normal CBC. He remains somewhat lethargic, able to answer questions with stable vitals. He will be placed in observation for monitoring, seizure precautions and antiepileptics. Case is discussed with the admitting physician Dr. Mendoza. - Lab Data Result diagrams: 09/02/19 19:08 09/02/19 19:08 Lab Results 09/02/19 09/02/19 09/02/19 Range/Units 19:08 19:08 19:23 WBC 6.0 (3.8-10.6) k/uL RBC 5.54 (4.30-5.90) m/uL Hgb 15.8 (13.0-17.5) gm/dL Hct 47.8 (39.0-53.0) % MCV 86.2 (80.0-100.0) fL MCH 28.5 (25.0-35.0) pg MCHC 33.1 (31.0-37.0) g/dL RDW 12.5 (11.5-15.5) % Plt Count 245 (150-450) k/uL Neutrophils % 61 % Lymphocytes % 27 % Monocytes % 7 % Eosinophils % 1 % Basophils % 3 % Neutrophils # 3.7 (1.3-7.7) k/uL Lymphocytes # 1.6 (1.0-4.8) k/uL Monocytes # 0.4 (0-1.0) k/uL Eosinophils # 0.1 (0-0.7) k/uL Basophils # 0.2 (0-0.2) k/uL Sodium 139 (137-145) mmol/L Potassium 5.1 (3.5-5.1) mmol/L Chloride 105 (98-107) mmol/L Carbon Dioxide 20 L (22-30) mmol/L Anion Gap 14 mmol/L BUN 9 (9-20) mg/dL Creatinine 1.13 (0.66-1.25) mg/dL Est GFR (CKD-EPI)AfAm >90 (>60 ml/min/1.73 sqM) Est GFR (CKD-EPI)NonAf >90 (>60 ml/min/1.73 sqM) Glucose 114 H (74-99) mg/dL Calcium 10.0 (8.4-10.2) mg/dL Total Bilirubin 0.6 (0.2-1.3) mg/dL AST 40 (17-59) U/L ALT 26 (4-49) U/L Alkaline Phosphatase 46 (38-126) U/L Total Protein 7.6 (6.3-8.2) g/dL Albumin 4.8 (3.5-5.0) g/dL Urine Color Light Yellow Urine Appearance Clear (Clear) Urine pH 6.0 (5.0-8.0) Ur Specific [place] 1.009 (1.001-1.035) Urine Protein 1+ H (Negative) Urine Glucose (UA) Negative (Negative) Urine Ketones Negative (Negative) Urine Blood Small H (Negative) Urine Nitrite Negative (Negative) Urine Bilirubin Negative (Negative) Urine Urobilinogen <2.0 (<2.0) mg/dL Ur Leukocyte Esterase Negative (Negative) Urine RBC 1 (0-5) /hpf Urine WBC 1 (0-5) /hpf Ur Squamous Epith Cells <1 (0-4) /hpf Urine Bacteria Rare H (None) /hpf Hyaline Casts 3 H (0-2) /lpf Urine Mucus Rare H (None) /hpf Urine Opiates Screen Not Detected (NotDetected) Ur Oxycodone Screen Not Detected (NotDetected) Urine Methadone Screen Not Detected (NotDetected) Ur Propoxyphene Screen Not Detected (NotDetected) Ur Barbiturates Screen Not Detected (NotDetected) U Tricyclic Antidepress Not Detected (NotDetected) Ur Phencyclidine Scrn Not Detected (NotDetected) Ur Amphetamines Screen Not Detected (NotDetected) U Methamphetamines Scrn Not Detected (NotDetected) U Benzodiazepines Scrn Not Detected (NotDetected) Urine Cocaine Screen Not Detected (NotDetected) U Marijuana (THC) Screen Detected H (NotDetected) Disposition Clinical Impression: Generalized seizure, Postictal state Disposition: ADMITTED IP TO THIS [facility] Condition: Stable Is patient prescribed a controlled substance at d/c from ED?: No Referrals: Nayan Mendoza MD [Primary Care Provider] - 1-2 days Decision to Admit Reason: Admit from EC Decision Date: 09/02/19 Decision Time: 21:12
[2019-09-02] MEDS: SODIUM CHLORIDE 0.9% 1,000 ML IV SCH (21:19)
[2019-09-03 07:18] VITALS: BP 108/64; PULSE 54; RESP 15; TEMP 97.8
[2019-09-03] MEDS: SODIUM CHLORIDE 0.9% 1,000 ML IV SCH (08:02)
[2019-09-03] MEDS ORDERED: levETIRAcetam 500 MG TAB PO SCH (09:00)
[2019-09-03] MEDS ORDERED: DIVALPROEX ER 500 MG TAB.ER.24H PO SCH (09:00)
--- NOTE | 2019-09-03 12:56 | DS ---
DISCHARGE SUMMARY CHIEF COMPLAINT: Seizure and postictal depression. HISTORY OF PRESENT ILLNESS AND PHYSICAL EXAM: Details of this man's history and physical can be found in the initial workup. LABORATORY STUDIES: While he was in a hospital he had laboratory studies, details of which can be found in the laboratory section of chart. COURSE IN HOSPITAL: After admission, he was placed on bedrest, started on intravenous fluids and seizure precautions. He was awake and alert the next day and it was felt that he could be discharged and [facility] office in a few days. FINAL DIAGNOSIS: 1. Grand mal seizure disorder. 2. Postictal depression. OPERATIONS: None. CONSULTATION: None. He is improved. MMODL / IJN: [id number] /
--- NOTE | 2019-09-03 12:56 | HP ---
HISTORY AND PHYSICAL CHIEF COMPLAINT: Seizure and postictal depression. HISTORY OF PRESENT ILLNESS: This is another admission for this 24-year-old [place]ro[place] male. He has a known seizure disorder and has been out of his medications for 2 to 3 weeks. Brought to the emergency room after he had a seizure and remained quite lethargic and was admitted for observation. REVIEW OF SYSTEMS: He has had no headache, focal neurologic deficits, change in vision or hearing, chest pain, shortness of breath, cough, hemoptysis, abdominal pain, vomiting, diarrhea, renal disease, diabetes, etc. He had no injury from the seizure. Past medical history, family history personal and social histories are unremarkable and noncontributory, otherwise. PHYSICAL EXAMINATION: Blood pressure 142/92 with a pulse of 100, respirations of 36, and he is afebrile. In general, he appeared to be well developed, well nourished, in no acute distress. Skin color is normal, skin is warm and dry. Lymph nodes are not enlarged. Head, ears, eyes, nose, mouth, and throat were normal. Neck veins are not distended. Thyroid is not enlarged. Chest is clear. Cardiac exam is normal. Abdomen is soft, nontender. Extremities are normal. Neurologically, he is intact. He is admitted to the hospital with diagnoses: 1. Grand mal seizure disorder. 2. Postictal depression. PLAN: 1. Bed rest. 2. IV fluids. 3. Seizure precautions. 4. Resume his Keppra and Depakote. MMODL / CAMIN: [id number] /
== END 2019-09-03 13:22 | disposition home or self-care (01) ==
LOC: EC 18:11 → 4SSUR 20:55
PROVIDERS: ADMIT Family Medicine; ATTEND Family Medicine
DX: G40.409 Other generalized epilepsy and epileptic syndromes, not intractable, without status epilepticus (principal); G47.419 Narcolepsy without cataplexy; F90.9 Attention-deficit hyperactivity disorder, unspecified type; F41.9 Anxiety disorder, unspecified; F32.9 Major depressive disorder, single episode, unspecified; F17.200 Nicotine dependence, unspecified, uncomplicated; Z79.899 Other long term (current) drug therapy; Z88.5 Allergy status to narcotic agent; Z88.6 Allergy status to analgesic agent; Z88.8 Allergy status to other drugs, medicaments and biological substances; Z91.011 Allergy to milk products
CPT/HCPCS: 96361; 96365; 99285; 36415; 93005; 80053; 80177; 85025; 81001; 80306; G0378 ×2; J1953

== ENCOUNTER 2019-10-21 06:40 | Emergency (ER) | payer OTHER ==
[2019-10-21] MEDS ORDERED: SODIUM CHLORIDE 0.9% 1,000 ML IV STA (06:46)
[2019-10-21] MEDS ORDERED: levETIRAcetam IV 1,000 MG in SALINE 1 100ML.BAG IVPB STA (06:47)
--- NOTE | 2019-10-21 06:52 | ED ---
Seizure HPI - General Stated Complaint: Seizure Time Seen by Provider: 10/21/19 06:45 Source: patient, EMS, RN notes reviewed Mode of arrival: EMS Limitations: altered mental status - History of Present Illness Initial Comments: This a 24-year-old male presents emergency department via EMS from home chief complaint of seizure. Patient's family called EMS a found him having a seizure. This is a very short seizure. Family does state that he has not been taking his Keppra that he ran out of medications and will not receive a refill for 6 days. Patient reportedly had a small amount blood in his mouth no other noted injuries he was laying bed when this happened no head injury. Patient is slightly postictal information is limited at this time. - Related Data Previous Rx's Medication Instructions Recorded Divalproex ER [Depakote ER] 500 mg PO DAILY #14 tab 10/21/19 levETIRAcetam [Keppra] 1,000 mg PO Q12HR #28 tab 10/21/19 Allergies Allergy/AdvReac Type Severity Reaction Status Date / Time codeine Allergy Swelling Verified 10/21/19 08:10 ibuprofen Allergy Unknown Verified 10/21/19 08:10 lactose Allergy Unknown Verified 10/21/19 08:10 phenytoin [From Dilantin] Allergy Unknown Verified 10/21/19 08:10 Review of Systems ROS Statement: Those systems with pertinent positive or pertinent negative responses have been documented in the HPI. ROS Other: All systems not noted in ROS Statement are negative. Past Medical History Past Medical History: Seizure Disorder Additional Past Medical History / Comment(s): Narcolepsy History of Any Multi-Drug Resistant Organisms: None Reported Past Surgical History: No Surgical Hx Reported Past Psychological History: ADD/ADHD, Anxiety, Depression Smoking Status: Former smoker Past Alcohol Use History: Occasional Past Drug Use History: Marijuana - Past Family History Mother Family Medical History: Hypertension Brother(s) Additional Family Medical History / Comment(s): Epilepsy General Exam Limitations: altered mental status General appearance: alert, in no apparent distress Head exam: Present: atraumatic, normocephalic, normal inspection Eye exam: Present: normal appearance, PERRL, EOMI. Absent: scleral icterus, conjunctival injection, periorbital swelling ENT exam: Present: mucous membranes moist, TM's normal bilaterally. Absent: normal exam, normal oropharynx (No active bleeding noted) Neck exam: Present: normal inspection, full ROM. Absent: tenderness, meningismus, lymphadenopathy Respiratory exam: Present: normal lung sounds bilaterally. Absent: respiratory distress, wheezes, rales, rhonchi, stridor Cardiovascular Exam: Present: regular rate, normal rhythm, normal heart sounds. Absent: systolic murmur, diastolic murmur, rubs, gallop, clicks GI/Abdominal exam: Present: soft, normal bowel sounds. Absent: distended, tenderness, guarding, rebound, rigid Neurological exam: Present: alert, CN II-XII intact. Absent: oriented X3 Skin exam: Present: warm, dry, intact, normal color. Absent: rash Course Vital Signs 10/21/19 10/21/19 06:41 08:10 Temperature 97.5 F L 98.0 F Pulse Rate 75 82 Respiratory 16 16 Rate Blood Pressure 122/71 123/71 O2 Sat by Pulse 100 94 L Oximetry Medical Decision Making - Medical Decision Making 24-year-old male presented for a seizure. Patient has known history of seizures patient has not been taking his medication as directed. Patient was given Keppra in emergency from is awake alert and orientated. Patient be picked up by his mother and discharged in stable condition. Patient will be provided a week's worth of his prescription. Patient has a refill on eighth. - Lab Data Result diagrams: 10/21/19 07:00 10/21/19 07:00 Lab Results 10/21/19 10/21/19 Range/Units 07:00 07:00 WBC 11.6 H (3.8-10.6) k/uL RBC 6.00 H (4.30-5.90) m/uL Hgb 16.8 (13.0-17.5) gm/dL Hct 51.4 (39.0-53.0) % MCV 85.7 (80.0-100.0) fL MCH 27.9 (25.0-35.0) pg MCHC 32.6 (31.0-37.0) g/dL RDW 12.5 (11.5-15.5) % Plt Count 179 (150-450) k/uL Neutrophils % 55 % Lymphocytes % 36 % Monocytes % 6 % Eosinophils % 1 % Basophils % 1 % Neutrophils # 6.3 (1.3-7.7) k/uL Lymphocytes # 4.2 (1.0-4.8) k/uL Monocytes # 0.7 (0-1.0) k/uL Eosinophils # 0.1 (0-0.7) k/uL Basophils # 0.1 (0-0.2) k/uL Sodium 141 (137-145) mmol/L Potassium 3.7 (3.5-5.1) mmol/L Chloride 107 (98-107) mmol/L Carbon Dioxide 19 L (22-30) mmol/L Anion Gap 15 mmol/L BUN 17 (9-20) mg/dL Creatinine 1.18 (0.66-1.25) mg/dL Est GFR (CKD-EPI)AfAm >90 (>60 ml/min/1.73 sqM) Est GFR (CKD-EPI)NonAf 86 (>60 ml/min/1.73 sqM) Glucose 151 H (74-99) mg/dL Calcium 9.6 (8.4-10.2) mg/dL Total Bilirubin 0.4 (0.2-1.3) mg/dL AST 33 (17-59) U/L ALT 20 (4-49) U/L Alkaline Phosphatase 56 (38-126) U/L Total Protein 7.7 (6.3-8.2) g/dL Albumin 4.7 (3.5-5.0) g/dL Disposition Clinical Impression: Generalized seizure Disposition: HOME SELF-CARE Condition: Stable Instructions (If sedation given, give patient instructions): Recurrent Seizures in Adults (ED) Additional Instructions: Please return to the Emergency Department if symptoms worsen or any other concerns. Prescriptions: Divalproex ER [Depakote ER] 500 mg PO DAILY #14 tab levETIRAcetam [Keppra] 1,000 mg PO Q12HR #28 tab Is patient prescribed a controlled substance at d/c from ED?: No Referrals: Nayan Mendoza MD [Primary Care Provider] - 1-2 days Time of Disposition: 08:45
[2019-10-21 07:28] LABS: ALT 20 U/L (4-49); AST 33 U/L (17-59); African American GFR (CKD) >90 (>60 ml/min/1.73 sqM); Albumin 4.7 g/dL (3.5-5.0); Alkaline Phosphatase 56 U/L (38-126); Anion Gap 15 mmol/L; Blood Urea Nitrogen 17 mg/dL (9-20); Calcium 9.6 mg/dL (8.4-10.2); Carbon Dioxide 19 mmol/L (22-30); Chloride 107 mmol/L (98-107); Glucose 151 mg/dL (74-99); Non-African American GFR(CKD) 86 (>60 ml/min/1.73 sqM); Potassium 3.7 mmol/L (3.5-5.1); Sodium 141 mmol/L (137-145); Total Bilirubin 0.4 mg/dL (0.2-1.3); Total Protein 7.7 g/dL (6.3-8.2)
[2019-10-21 07:48] LABS: Basophils # (A) 0.1 k/uL (0-0.2); Basophils % (A) 1 %; Eosinophils # (A) 0.1 k/uL (0-0.7); Eosinophils % (A) 1 %; HCT 51.4 % (39.0-53.0); HGB 16.8 gm/dL (13.0-17.5); Lymphocytes # (A) 4.2 k/uL (1.0-4.8); Lymphocytes % (A) 36 %; MCH 27.9 pg (25.0-35.0); MCHC 32.6 g/dL (31.0-37.0); MCV 85.7 fL (80.0-100.0); Mean Platelet Volume 8.4; Monocytes # (A) 0.7 k/uL (0-1.0); Monocytes % (A) 6 %; Neutrophils # (A) 6.3 k/uL (1.3-7.7); Neutrophils % (A) 55 %; Platelet Count 179 k/uL (150-450); RDW 12.5 % (11.5-15.5); WBC 11.6 k/uL (3.8-10.6)
[2019-10-21 08:15] VITALS: TEMP 98
[2019-10-21 08:58] VITALS: BP 130/84; PULSE 80; RESP 18
== END 2019-10-21 08:50 | disposition home or self-care (01) ==
LOC: EC 06:40
DX: G40.409 Other generalized epilepsy and epileptic syndromes, not intractable, without status epilepticus (principal); Z87.891 Personal history of nicotine dependence; Z88.5 Allergy status to narcotic agent; Z88.6 Allergy status to analgesic agent; Z91.011 Allergy to milk products; Z88.8 Allergy status to other drugs, medicaments and biological substances
CPT/HCPCS: 99284; 96374; 96361; 36415; 93005; 80053; 85025; J1953

== ENCOUNTER 2019-11-12 03:36 | Emergency (ER) | payer OTHER ==
[2019-11-12 03:43] VITALS: TEMP 97.9
[2019-11-12] MEDS ORDERED: LORazepam 2 MG/ML INJ IV PRN (03:59)
[2019-11-12 04:13] LABS: HCT 53.5 % (39.0-53.0); HGB 16.6 gm/dL (13.0-17.5); Hypochromasia Moderate; MCH 28.6 pg (25.0-35.0); MCV 92.2 fL (80.0-100.0); Platelet Count 257 k/uL (150-450); RDW 13.2 % (11.5-15.5); WBC 23.3 k/uL (3.8-10.6)
[2019-11-12 04:18] LABS: ALT 26 U/L (4-49); AST 42 U/L (17-59); African American GFR (CKD) 84 (>60 ml/min/1.73 sqM); Alcohol <10 mg/dL; Alkaline Phosphatase 73 U/L (38-126); Anion Gap 24 mmol/L; Blood Urea Nitrogen 11 mg/dL (9-20); Calcium 9.8 mg/dL (8.4-10.2); Carbon Dioxide 10 mmol/L (22-30); Chloride 105 mmol/L (98-107); Glucose 129 mg/dL (74-99); Non-African American GFR(CKD) 73 (>60 ml/min/1.73 sqM); Potassium 4.6 mmol/L (3.5-5.1); Sodium 139 mmol/L (137-145); Total Bilirubin 0.3 mg/dL (0.2-1.3)
[2019-11-12 04:23] LABS: Valproic Acid (Depakene) <10.0 ug/mL
[2019-11-12 04:44] LABS: Eosinophils # (M) 0.23 k/uL (0-0.7); Lymphocytes # (M) 14.45 k/uL (1.0-4.8); Neutrophils # (M) 8.62 k/uL (1.3-7.7); Neutrophils % (M) 37 %; Nucleated Red Blood Cells 0 /100 WBC (0-0); Total Cells Counted 100
[2019-11-12] MEDS ORDERED: DIVALPROEX 500 MG TABLET.DR PO STA (04:49)
--- NOTE | 2019-11-12 05:25 | ED ---
Seizure HPI - General Chief Complaint: Seizure Stated Complaint: Seizure Time Seen by Provider: 11/12/19 03:40 Source: patient, family (Girlfriend), EMS Mode of arrival: EMS Limitations: no limitations - History of Present Illness Initial Comments: This patient is 24-year-old man with history of seizure disorder, presenting to have evaluation after he had a seizure that was typical of his seizure disorder. The patient did state that he had taken his medications. Denies trauma. Denies neurologic symptoms currently. MD Complaint: seizure -: minutes(s) Description of Episode: loss of consciousness, tonic-clonic movement -: minutes(s) Witnessed: yes - by bystander Trauma: No Seizure History: known seizure disorder Place: home Possible Precipitating Event: none Associated Symptoms: denies other symptoms Treatments Prior to Arrival: none - Related Data Previous Rx's Medication Instructions Recorded Divalproex ER [Depakote ER] 500 mg PO DAILY #14 tab 10/21/19 levETIRAcetam [Keppra] 1,000 mg PO Q12HR #28 tab 10/21/19 Allergies Allergy/AdvReac Type Severity Reaction Status Date / Time codeine Allergy Swelling Verified 11/12/19 03:43 ibuprofen Allergy Unknown Verified 11/12/19 03:43 lactose Allergy Unknown Verified 11/12/19 03:43 phenytoin [From Dilantin] Allergy Unknown Verified 11/12/19 03:43 Review of Systems ROS Statement: Those systems with pertinent positive or pertinent negative responses have been documented in the HPI. ROS Other: All systems not noted in ROS Statement are negative. Constitutional: Denies: fever, chills, weakness Eyes: Denies: vision change Respiratory: Denies: cough, dyspnea Cardiovascular: Denies: chest pain, palpitations, edema Gastrointestinal: Denies: abdominal pain, vomiting, diarrhea Musculoskeletal: Denies: back pain Skin: Denies: rash Neurological: Denies: headache, weakness, numbness Past Medical History Past Medical History: Seizure Disorder Additional Past Medical History / Comment(s): Narcolepsy History of Any Multi-Drug Resistant Organisms: None Reported Past Surgical History: No Surgical Hx Reported Past Psychological History: ADD/ADHD, Anxiety, Depression Smoking Status: Former smoker Past Alcohol Use History: Occasional Past Drug Use History: Marijuana - Past Family History Mother Family Medical History: Hypertension Brother(s) Additional Family Medical History / Comment(s): Epilepsy General Exam General appearance: alert, in no apparent distress Head exam: Present: atraumatic, normocephalic Eye exam: Present: normal appearance, PERRL, EOMI. Absent: scleral icterus, conjunctival injection Neck exam: Present: normal inspection, full ROM. Absent: tenderness, meningismus Respiratory exam: Present: normal lung sounds bilaterally. Absent: respiratory distress, wheezes, rales, rhonchi, stridor Cardiovascular Exam: Present: regular rate, normal rhythm, normal heart sounds. Absent: systolic murmur, diastolic murmur, rubs, gallop GI/Abdominal exam: Present: soft. Absent: distended, tenderness, guarding, rebound, rigid Extremities exam: Present: normal inspection, normal capillary refill. Absent: pedal edema, calf tenderness Back exam: Present: normal inspection. Absent: CVA tenderness (R), CVA tenderness (L) Neurological exam: Present: alert, oriented X3, CN II-XII intact. Absent: motor sensory deficit Skin exam: Present: warm, dry, intact, normal color. Absent: rash Course Vital Signs 11/12/19 11/12/19 03:37 06:17 Temperature 97.9 F Pulse Rate 66 62 Respiratory 16 18 Rate Blood Pressure 136/83 113/74 O2 Sat by Pulse 92 L 96 Oximetry Medical Decision Making - Lab Data Result diagrams: 11/12/19 03:47 11/12/19 03:47 Lab Results 11/12/19 11/12/19 Range/Units 03:47 03:47 WBC 23.3 H (3.8-10.6) k/uL RBC 5.80 (4.30-5.90) m/uL Hgb 16.6 (13.0-17.5) gm/dL Hct 53.5 H (39.0-53.0) % MCV 92.2 D (80.0-100.0) fL MCH 28.6 (25.0-35.0) pg MCHC 31.0 (31.0-37.0) g/dL RDW 13.2 (11.5-15.5) % Plt Count 257 (150-450) k/uL Neutrophils % (Manual) 37 % Lymphocytes % (Manual) 62 % Eosinophils % (Manual) 1 % Neutrophils # (Manual) 8.62 H (1.3-7.7) k/uL Lymphocytes # (Manual) 14.45 H (1.0-4.8) k/uL Eosinophils # (Manual) 0.23 (0-0.7) k/uL Nucleated RBCs 0 (0-0) /100 WBC Manual Slide Review Performed Hypochromasia Moderate Sodium 139 (137-145) mmol/L Potassium 4.6 (3.5-5.1) mmol/L Chloride 105 (98-107) mmol/L Carbon Dioxide 10 L (22-30) mmol/L Anion Gap 24 mmol/L BUN 11 (9-20) mg/dL Creatinine 1.35 H (0.66-1.25) mg/dL Est GFR (CKD-EPI)AfAm 84 (>60 ml/min/1.73 sqM) Est GFR (CKD-EPI)NonAf 73 (>60 ml/min/1.73 sqM) Glucose 129 H (74-99) mg/dL Calcium 9.8 (8.4-10.2) mg/dL Total Bilirubin 0.3 (0.2-1.3) mg/dL AST 42 (17-59) U/L ALT 26 (4-49) U/L Alkaline Phosphatase 73 (38-126) U/L Total Protein 8.0 (6.3-8.2) g/dL Albumin 5.0 (3.5-5.0) g/dL Valproic Acid <10.0 ug/mL Serum Alcohol <10 mg/dL Disposition Clinical Impression: Epileptic seizure, generalized Disposition: HOME SELF-CARE Condition: Good Instructions (If sedation given, give patient instructions): Recurrent Seizures in Adults (ED) Is patient prescribed a controlled substance at d/c from ED?: No Referrals: Nayan Mendoza MD [Primary Care Provider] - 1-2 days
[2019-11-12 06:18] VITALS: BP 113/74; PULSE 62; RESP 18
== END 2019-11-12 06:37 | disposition home or self-care (01) ==
LOC: EC 03:36
DX: G40.409 Other generalized epilepsy and epileptic syndromes, not intractable, without status epilepticus (principal); Z88.5 Allergy status to narcotic agent; Z88.6 Allergy status to analgesic agent; Z91.011 Allergy to milk products; Z88.8 Allergy status to other drugs, medicaments and biological substances; Z87.891 Personal history of nicotine dependence
CPT/HCPCS: 36415; 80164; 80053; 80177; 85025; 99284; G0480; 80320

== ENCOUNTER 2019-12-19 20:25 | Emergency (ER) | payer OTHER ==
[2019-12-19 20:31] VITALS: TEMP 98.9
[2019-12-19] MEDS ORDERED: levETIRAcetam 500 MG TAB PO STA (21:09)
[2019-12-19] MEDS ORDERED: DIVALPROEX 500 MG TABLET.DR PO STA (21:09)
[2019-12-19 21:53] LABS: ALT 20 U/L (4-49); AST 56 U/L (17-59); African American GFR (CKD) >90 (>60 ml/min/1.73 sqM); Albumin 4.4 g/dL (3.5-5.0); Alcohol <10 mg/dL; Alkaline Phosphatase 64 U/L (38-126); Anion Gap 7 mmol/L; Blood Urea Nitrogen 13 mg/dL (9-20); Calcium 9.3 mg/dL (8.4-10.2); Carbon Dioxide 24 mmol/L (22-30); Chloride 105 mmol/L (98-107); Glucose 75 mg/dL (74-99); Non-African American GFR(CKD) >90 (>60 ml/min/1.73 sqM); Potassium 3.8 mmol/L (3.5-5.1); Sodium 136 mmol/L (137-145); Total Bilirubin 1.2 mg/dL (0.2-1.3)
--- NOTE | 2019-12-19 21:54 | XR ---
EXAMINATION TYPE: XR chest 2V DATE OF EXAM: 12/19/2019 COMPARISON: 11/07/2017 HISTORY: Hemoptysis TECHNIQUE: FINDINGS: Heart and mediastinum are normal. There is some mild infiltrate in the right upper lobe. Di aphragm is normal. Pulmonary vascularity is normal. Bony thorax is intact. IMPRESSION: There is a minimal right upper lobe infiltrate that appears new compared to old exam. Nor mal heart.
[2019-12-19 21:58] LABS: Basophils % (A) 0 %; Eosinophils # (A) 0.2 k/uL (0-0.7); Eosinophils % (A) 1 %; HCT 42.2 % (39.0-53.0); HGB 14.4 gm/dL (13.0-17.5); Lymphocytes # (A) 3.9 k/uL (1.0-4.8); Lymphocytes % (A) 29 %; MCH 28.7 pg (25.0-35.0); MCHC 34.1 g/dL (31.0-37.0); Mean Platelet Volume 7.9; Monocytes # (A) 0.7 k/uL (0-1.0); Monocytes % (A) 5 %; Neutrophils # (A) 8.3 k/uL (1.3-7.7); Neutrophils % (A) 63 %; Platelet Count 195 k/uL (150-450); RBC 5.01 m/uL (4.30-5.90); RDW 13.3 % (11.5-15.5); WBC 13.2 k/uL (3.8-10.6)
[2019-12-19 22:06] VITALS: BP 103/67; PULSE 77; RESP 18
[2019-12-19 22:21] LABS: MCV 84.2 fL (80.0-100.0)
[2019-12-19 22:29] LABS: D-Dimer 0.27 mg/L FEU (<0.60); INR 1.1 (<1.2); Partial Thromboplastin Time 25.5 sec (22.0-30.0); Prothrombin Time 11.1 sec (9.0-12.0)
--- NOTE | 2019-12-19 22:36 | ED ---
ENT HPI - General Source: patient Mode of arrival: ambulatory Limitations: no limitations <Josselyn Carranza - Last Filed: 12/20/19 00:10> <Milvia Arenas - Last Filed: 12/21/19 23:15> - General Chief complaint: ENT Stated complaint: Coughing up blood, had a seizure last night Time Seen by Provider: 12/19/19 20:37 - History of Present Illness Initial comments: 24-year-old male presented for breakthrough seizure hemoptysis. Patient states that he has been out of his Keppra for 3 days he states he has had 2 breakt hrough seizures and after he usually has a sense of vomiting and dry heaving after his seizures he states this is normal for him. Patient states that he did a few specks of blood in the vomit. He states that since he has had occasional blood in his sputum when coughing. Patient denies any significant cough night sweats chills rigors patient denies any previous history of tuberculosis or exposure. Patient denies any fevers chest pain or shortness of breath. Patient denies any leg swelling history of DVT or pulmonary embolism. Patient denies pain with deep inspiration. Patient denies changes in seizure states witnessed, no fall, no head injury, entire body shaking, MARTIN and vomiting following the resolve. Patient has no additional complaint. Upon arrival he appears well no signs of acute distress. (Josselyn Carranza) - Related Data Previous Rx's Medication Instructions Recorded Divalproex ER [Depakote ER] 500 mg PO DAILY #14 tab 10/21/19 levETIRAcetam [Keppra] 1,000 mg PO Q12HR #28 tab 10/21/19 Divalproex ER [Depakote ER] 500 mg PO DAILY 14 Days #14 tab 12/19/19 levETIRAcetam [Keppra] 1,000 mg PO Q12HR 14 Days #28 tab 12/19/19 Allergies Allergy/AdvReac Type Severity Reaction Status Date / Time codeine Allergy Swelling Verified 12/19/19 20:31 ibuprofen Allergy Unknown Verified 12/19/19 20:31 lactose Allergy Unknown Verified 12/19/19 20:31 phenytoin [From Dilantin] Allergy Unknown Verified 12/19/19 20:31 Review of Systems ROS Other: All systems not noted in ROS Statement are negative. <Josselyn Carranza - Last Filed: 12/20/19 00:10> ROS Other: All systems not noted in ROS Statement are negative. <Milvia Arenas - Last Filed: 12/21/19 23:15> ROS Statement: Those systems with pertinent positive or pertinent negative responses have been documented in the HPI. Past Medical History Past Medical History: Seizure Disorder Additional Past Medical History / Comment(s): Narcolepsy History of Any Multi-Drug Resistant Organisms: None Reported Past Surgical History: No Surgical Hx Reported Past Psychological History: ADD/ADHD, Anxiety, Depression Smoking Status: Former smoker Past Alcohol Use History: Occasional Past Drug Use History: Marijuana - Past Family History Mother Family Medical History: Hypertension Brother(s) Additional Family Medical History / Comment(s): Epilepsy <Josselyn Carranza - Last Filed: 12/20/19 00:10> General Exam Limitations: no limitations <Josselyn Carranza - Last Filed: 12/20/19 00:10> - General Exam Comments Initial Comments: General: The patient is awake and alert, in no distress Eye: +3 mm pupils are equal, round and reactive to light, extra-ocular movements are intact. No nystagmus. There is normal conjunctiva bilaterally. No signs of icterus. Ears, nose, mouth and throat: There are moist mucous membranes and no oral lesions. Neck: The neck is supple, there is no tenderness or JVD. Cardiovascular: There is a regular rate and rhythm. No murmur, rub or gallop is appreciated. Respiratory: Lungs are clear to auscultation, respirations are non-labored, breath sounds are equal. No wheezes, stridor, rales, or rhonchi. Gastrointestinal: Soft, non-distended, non-tender abdomen without masses or org anomegaly noted. There is no rebound or guarding present. Musculoskeletal: Normal ROM, no tenderness. Strength 5/5. Sensation intact. Radial pulses equal bilaterally 2+. Neurological: A&O x 3. CN II-XII intact, There are no obvious motor or sensory deficits. Coordination appears grossly intact. Speech is normal. Skin: Skin is warm and dry and no rashes or lesions are noted. Psychiatric: Cooperative, appropriate mood & affect, normal judgment. (Josselyn Carranza) Course Vital Signs 12/19/19 12/19/19 12/19/19 20:28 22:05 23:04 Temperature 98.9 F 98.9 F Pulse Rate 79 77 77 Respiratory 16 18 18 Rate Blood Pressure 129/72 103/67 103/67 O2 Sat by Pulse 98 98 98 Oximetry Medical Decision Making - Lab Data Result diagrams: 12/19/19 21:30 12/19/19 21:30 <Josselyn Carranza - Last Filed: 12/20/19 00:10> - Lab Data Result diagrams: 12/19/19 21:30 12/19/19 21:30 <Milvia Arenas - Last Filed: 12/21/19 23:15> - Medical Decision Making 24 yo presenting for coughing up blood, seizure. Hx seizure d/o. Off medications, has hx of breath through seizures. Unsure of time. No current complaints aside from small amount of bloood after retching and coughing up small amount after. No associated symptoms. Dimer (-). Not tachy. Patient BP stable. Troponin (-). Coags WNL. CXR read as upper lobe infiltrate personally reviewd with Dr. Arenas we do not appreciate finding and symptoms do not clinically correlate with a PNA. Will monitor and have patient repeat CXR and have additional f/u wtih PCP to ensure no malignancy. Medications refilled, no focal neurological deficits. Patient agreeable to care plan and discharge. Discharged appearing well, Dr. Arenas agreeable to care plan. (Josselyn Carranza) I was available for consultation in the emergency department. The history and physical exam were done by the midlevel provider. I was consulted for this patients care. I reviewed the case with the midlevel provider and based on their presentation of the patient, I agree with the assessment, medical decision making and plan of care as documented. Chart was dictated using eOriginal dictation software. Attempts were made to correct any dictation errors however some typographical errors may persist. Patient was seen during a national state of emergency due to the Covid-19 pandemic. (Milvia Arenas) - Lab Data Lab Results 12/19/19 12/19/19 12/19/19 Range/Units 21:30 21:30 21:30 WBC 13.2 H (3.8-10.6) k/uL RBC 5.01 (4.30-5.90) m/uL Hgb 14.4 (13.0-17.5) gm/dL Hct 42.2 (39.0-53.0) % MCV 84.2 D (80.0-100.0) fL MCH 28.7 (25.0-35.0) pg MCHC 34.1 (31.0-37.0) g/dL RDW 13.3 (11.5-15.5) % Plt Count 195 (150-450) k/uL Neutrophils % 63 % Lymphocytes % 29 % Monocytes % 5 % Eosinophils % 1 % Basophils % 0 % Neutrophils # 8.3 H (1.3-7.7) k/uL Lymphocytes # 3.9 (1.0-4.8) k/uL Monocytes # 0.7 (0-1.0) k/uL Eosinophils # 0.2 (0-0.7) k/uL Basophils # 0.0 (0-0.2) k/uL PT 11.1 (9.0-12.0) sec INR 1.1 (<1.2) APTT 25.5 (22.0-30.0) sec D-Dimer 0.27 (<0.60) mg/L FEU Sodium 136 L (137-145) mmol/L Potassium 3.8 (3.5-5.1) mmol/L Chloride 105 (98-107) mmol/L Carbon Dioxide 24 (22-30) mmol/L Anion Gap 7 mmol/L BUN 13 (9-20) mg/dL Creatinine 0.88 (0.66-1.25) mg/dL Est GFR (CKD-EPI)AfAm >90 (>60 ml/min/1.73 sqM) Est GFR (CKD-EPI)NonAf >90 (>60 ml/min/1.73 sqM) Glucose 75 (74-99) mg/dL Calcium 9.3 (8.4-10.2) mg/dL Total Bilirubin 1.2 (0.2-1.3) mg/dL AST 56 (17-59) U/L ALT 20 (4-49) U/L Alkaline Phosphatase 64 (38-126) U/L Troponin I (0.000-0.034) ng/mL Total Protein 7.0 (6.3-8.2) g/dL Albumin 4.4 (3.5-5.0) g/dL Lipase 70 (23-300) U/L Serum Alcohol <10 mg/dL 12/19/19 Range/Units 21:30 WBC (3.8-10.6) k/uL RBC (4.30-5.90) m/uL Hgb (13.0-17.5) gm/dL Hct (39.0-53.0) % MCV (80.0-100.0) fL MCH (25.0-35.0) pg MCHC (31.0-37.0) g/dL RDW (11.5-15.5) % Plt Count (150-450) k/uL Neutrophils % % Lymphocytes % % Monocytes % % Eosinophils % % Basophils % % Neutrophils # (1.3-7.7) k/uL Lymphocytes # (1.0-4.8) k/uL Monocytes # (0-1.0) k/uL Eosinophils # (0-0.7) k/uL Basophils # (0-0.2) k/uL PT (9.0-12.0) sec INR (<1.2) APTT (22.0-30.0) sec D-Dimer (<0.60) mg/L FEU Sodium (137-145) mmol/L Potassium (3.5-5.1) mmol/L Chloride (98-107) mmol/L Carbon Dioxide (22-30) mmol/L Anion Gap mmol/L BUN (9-20) mg/dL Creatinine (0.66-1.25) mg/dL Est GFR (CKD-EPI)AfAm (>60 ml/min/1.73 sqM) Est GFR (CKD-EPI)NonAf (>60 ml/min/1.73 sqM) Glucose (74-99) mg/dL Calcium (8.4-10.2) mg/dL Total Bilirubin (0.2-1.3) mg/dL AST (17-59) U/L ALT (4-49) U/L Alkaline Phosphatase (38-126) U/L Troponin I <0.012 (0.000-0.034) ng/mL Total Protein (6.3-8.2) g/dL Albumin (3.5-5.0) g/dL Lipase (23-300) U/L Serum Alcohol mg/dL Disposition Is patient prescribed a controlled substance at d/c from ED?: No Time of Disposition: 22:35 <DillonJosselyn Bryan - Last Filed: 12/20/19 00:10> <Milvia Arenas Markel - Last Filed: 12/21/19 23:15> Clinical Impression: Seizure, Hemoptysis, Right pulmonary infiltrate on CXR Disposition: HOME SELF-CARE Condition: Good Instructions (If sedation given, give patient instructions): Hemoptysis (ED) Additional Instructions: Please use medication as discussed. Please follow-up with family doctor in the next 2 days for lung infiltrate. Follow-up with your neurologist. Please return to emergency room if the symptoms increase or worsen or for any other concerns. Prescriptions: Divalproex ER [Depakote ER] 500 mg PO DAILY 14 Days #14 tab levETIRAcetam [Keppra] 1,000 mg PO Q12HR 14 Days #28 tab Referrals: Nayan Mendoza MD [Primary Care Provider] - 1-2 days
== END 2019-12-19 23:05 | disposition home or self-care (01) ==
LOC: EC 20:25
DX: R04.2 Hemoptysis (principal); R91.8 Other nonspecific abnormal finding of lung field; R56.9 Unspecified convulsions; Z88.5 Allergy status to narcotic agent; Z88.6 Allergy status to analgesic agent; Z91.011 Allergy to milk products; Z88.8 Allergy status to other drugs, medicaments and biological substances; Z87.891 Personal history of nicotine dependence
CPT/HCPCS: 36415; 93005; 85379; 80053; 83690; 84484; 85025; 85610; 85730; 71046; 99284; G0480; 80320

== ENCOUNTER 2019-12-27 03:16 | Emergency (ER) | payer OTHER ==
[2019-12-27 03:24] VITALS: BP 101/64; PULSE 92; RESP 18; TEMP 98
--- NOTE | 2019-12-27 04:03 | XR ---
EXAMINATION TYPE: XR lumbar spine 2 or 3V DATE OF EXAM: 12/27/2019 COMPARISON: NONE HISTORY: Pain TECHNIQUE: 3 views FINDINGS: Lumbar vertebra have normal spacing and alignment. Posterior elements are intact. There is no compression fracture. Sacroiliac joints appear normal. IMPRESSION: Normal lumbar spine.
--- NOTE | 2019-12-27 04:04 | XR ---
EXAMINATION TYPE: XR knee limited LT DATE OF EXAM: 12/27/2019 COMPARISON: NONE HISTORY: Pain TECHNIQUE: 2 views FINDINGS: Joint spaces are normal. I see no fracture nor dislocation. There is no sign of joint effus ion. IMPRESSION: Normal left knee.
--- NOTE | 2019-12-27 04:05 | XR ---
EXAMINATION TYPE: XR pelvis AP view DATE OF EXAM: 12/27/2019 COMPARISON: NONE HISTORY: Pain TECHNIQUE: Single view FINDINGS: Pelvic ring is intact. Proximal femurs and hip joints appear normal. There is no sign of hi p dysplasia. Sacroiliac joints appear normal. IMPRESSION: Normal pelvis.
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
== END 2019-12-27 04:15 | disposition home or self-care (01) ==
LOC: EC 03:16
DX: S80.212A Abrasion, left knee, initial encounter (principal); S50.311A Abrasion of right elbow, initial encounter; T14.8XXA Other injury of unspecified body region, initial encounter; F17.200 Nicotine dependence, unspecified, uncomplicated; Z88.6 Allergy status to analgesic agent; Z88.5 Allergy status to narcotic agent; Z91.011 Allergy to milk products; Z88.8 Allergy status to other drugs, medicaments and biological substances; Y04.2XXA Assault by strike against or bumped into by another person, initial encounter
CPT/HCPCS: 72100; 72170; 99283

== ENCOUNTER 2020-01-05 22:19 | Emergency (ER) | payer OTHER ==
[2020-01-05 22:26] VITALS: BP 115/71; PULSE 86; RESP 18; TEMP 98.2
--- NOTE | 2020-01-05 23:03 | XR ---
EXAMINATION TYPE: XR ankle complete RT DATE OF EXAM: 01/05/2020 COMPARISON: NONE HISTORY: Ankle pain TECHNIQUE: 3 views FINDINGS: Ankle mortise is anatomic. There is some spurring of the anterior malleolus. The joint spac es are fairly normal. I see no fracture. IMPRESSION: Minor spur formation at the ankle joint. No fracture seen.
--- NOTE | 2020-01-05 23:06 | ED ---
Lower Extremity Injury HPI - General Chief Complaint: Extremity Injury, Lower Stated Complaint: Ankle Injury Time Seen by Provider: 01/05/20 22:28 Source: patient, family Mode of arrival: wheelchair Limitations: no limitations - History of Present Illness Initial Comments: 24-year-old male presenting for right ankle pain. Patient states he hasn't been to a back flip and uses right ankle. Patient states he is able to walk on it but it hurts. Patient denies any foot or knee pain. She has any injury to his head neck or back. Patient is no additional complaints or any other systems negative denies any numbness tingling or loss of sensation coolness or pallor of the extremity. - Related Data Previous Rx's Medication Instructions Recorded Divalproex ER [Depakote ER] 500 mg PO DAILY #14 tab 10/21/19 levETIRAcetam [Keppra] 1,000 mg PO Q12HR #28 tab 10/21/19 Divalproex ER [Depakote ER] 500 mg PO DAILY 14 Days #14 tab 12/19/19 levETIRAcetam [Keppra] 1,000 mg PO Q12HR 14 Days #28 tab 12/19/19 Allergies Allergy/AdvReac Type Severity Reaction Status Date / Time codeine Allergy Swelling Verified 01/05/20 22:27 ibuprofen Allergy Unknown Verified 01/05/20 22:27 lactose Allergy Unknown Verified 01/05/20 22:27 phenytoin [From Dilantin] Allergy Unknown Verified 01/05/20 22:27 Review of Systems ROS Statement: Those systems with pertinent positive or pertinent negative responses have been documented in the HPI. ROS Other: All systems not noted in ROS Statement are negative. Past Medical History Past Medical History: Seizure Disorder Additional Past Medical History / Comment(s): Narcolepsy History of Any Multi-Drug Resistant Organisms: None Reported Past Surgical History: No Surgical Hx Reported Past Psychological History: ADD/ADHD, Anxiety, Depression Smoking Status: Former smoker Past Alcohol Use History: Occasional Past Drug Use History: Marijuana - Past Family History Mother Family Medical History: Hypertension Brother(s) Additional Family Medical History / Comment(s): Epilepsy General Exam - General Exam Comments Initial Comments: General: The patient is awake and alert, in no distress Eye: +3 mm pupils are equal, round and reactive to light, extra-ocular movements are intact. No nystagmus. There is normal conjunctiva bilaterally. No signs of icterus. Ears, nose, mouth and throat: There are moist mucous membranes and no oral lesions. Neck: The neck is supple, there is no tenderness or JVD. Cardiovascular: There is a regular rate and rhythm. No murmur, rub or gallop is appreciated. Respiratory: Lungs are clear to auscultation, respirations are non-labored, breath sounds are equal. No wheezes, stridor, rales, or rhonchi. Musculoskeletal: Upon section of the ankles bilaterally there is no soft tissue swelling noted. Patient is tender to palpation of the lateral malleolus. Full range of motion with mild tenderness in the right ankle. The left full-strength sensation intact proctoscopy distal to area of complaint. +2 dorsalis pulses equal in comparison bilaterally. No foot pain to palpation. Neurological: A&O x 3. CN II-XII intact grossly, There are no obvious motor or sensory deficits. Coordination appears grossly intact. Speech is normal. Skin: Skin is warm and dry and no rashes or lesions are noted. Psychiatric: Cooperative, appropriate mood & affect, normal judgment. Limitations: no limitations Course Vital Signs 01/05/20 22:22 Temperature 98.2 F Pulse Rate 86 Respiratory 18 Rate Blood Pressure 115/71 O2 Sat by Pulse 97 Oximetry Medical Decision Making - Medical Decision Making XR (-) pt neurovascularly intact. Patient ankle exam no swelling. Weight bearing. D/c with RICE instruction. Disposition Clinical Impression: Right ankle pain Disposition: HOME SELF-CARE Condition: Good Instructions (If sedation given, give patient instructions): Ankle Sprain (ED) Additional Instructions: Please use medication as discussed. Please follow-up with family doctor in the next 2 days. Please return to emergency room if the symptoms increase or worsen or for any other concerns. Is patient prescribed a controlled substance at d/c from ED?: No Referrals: Nayan Mendoza MD [Primary Care Provider] - 1-2 days Time of Disposition: 23:05
== END 2020-01-05 23:30 | disposition home or self-care (01) ==
LOC: EC 22:19
DX: M25.571 Pain in right ankle and joints of right foot (principal); Z87.891 Personal history of nicotine dependence; Z88.5 Allergy status to narcotic agent; Z88.6 Allergy status to analgesic agent; Z91.011 Allergy to milk products; Z88.8 Allergy status to other drugs, medicaments and biological substances
CPT/HCPCS: 99283

== ENCOUNTER 2020-01-14 09:30 | Emergency (ER) | payer OTHER ==
[2020-01-14 09:46] VITALS: TEMP 97.6
[2020-01-14] MEDS ORDERED: SODIUM CHLORIDE 0.9% 1,000 ML IV STA (10:09)
[2020-01-14] MEDS ORDERED: levETIRAcetam IV 1,000 MG in SALINE 1 100ML.BAG IVPB STA (10:28)
--- NOTE | 2020-01-14 10:29 | ED ---
Seizure HPI - General Chief Complaint: Seizure Stated Complaint: Seizure Time Seen by Provider: 01/14/20 09:38 Source: EMS Mode of arrival: EMS Limitations: altered mental status - History of Present Illness Initial Comments: 24-year-old male patient with past medical history significant for seizures presents to the emergency department today for evaluation after having a seizure at home. Patient's called after he started to display seizure-like activity. Patient states his last seizure was 3-4 days ago. States he is out of his medications. He takes Depakote and Keppra. He denies alcohol or drug use. He is reporting current headache sensitivity to light. Denies nausea or vomiting. States his been having some mild left-sided abdominal pain for the last couple of weeks. Denies any fever or chills. Denies difficulty with urination. Patient denies any recent rash, cough, shortness of breath, chest pain, diarrhea, constipation, back pain, numbness, tingling, dizziness, weakness, hematuria, dysuria, urinary urgency, urinary frequency, or any other complaints. - Related Data Previous Rx's Medication Instructions Recorded Divalproex ER [Depakote ER] 500 mg PO DAILY 14 Days #14 tab 12/19/19 levETIRAcetam [Keppra] 1,000 mg PO Q12HR 14 Days #28 tab 12/19/19 Divalproex ER [Depakote ER] 500 mg PO DAILY #30 tab 01/14/20 levETIRAcetam [Keppra] 1,000 mg PO Q12HR #60 tab 01/14/20 Allergies Allergy/AdvReac Type Severity Reaction Status Date / Time acetaminophen [From Tylenol] Allergy Unknown Verified 01/14/20 10:44 codeine Allergy Swelling Verified 01/14/20 10:44 ibuprofen Allergy Unknown Verified 01/14/20 10:44 lactose Allergy Unknown Verified 01/14/20 10:44 phenytoin [From Dilantin] Allergy Unknown Verified 01/14/20 10:44 Review of Systems ROS Statement: Those systems with pertinent positive or pertinent negative responses have been documented in the HPI. ROS Other: All systems not noted in ROS Statement are negative. Past Medical History Past Medical History: Seizure Disorder Additional Past Medical History / Comment(s): Narcolepsy History of Any Multi-Drug Resistant Organisms: None Reported Past Surgical History: No Surgical Hx Reported Past Psychological History: ADD/ADHD, Anxiety, Depression Smoking Status: Former smoker Past Alcohol Use History: Occasional Past Drug Use History: Marijuana - Past Family History Mother Family Medical History: Hypertension Brother(s) Additional Family Medical History / Comment(s): Epilepsy General Exam Limitations: altered mental status General appearance: alert, in no apparent distress, other (This is a well- developed, well-nourished adult male patient in no acute distress. Vital signs upon presentation are temperature 97.6F, pulse 95, respirations 16, blood pressure 125/58, pulse ox 97% on room air.) Eye exam: Present: normal appearance, PERRL, EOMI. Absent: scleral icterus, conjunctival injection, periorbital swelling ENT exam: Present: normal exam, normal oropharynx, mucous membranes moist Respiratory exam: Present: normal lung sounds bilaterally. Absent: respiratory distress, wheezes, rales, rhonchi, stridor Cardiovascular Exam: Present: regular rate, normal rhythm, normal heart sounds. Absent: systolic murmur, diastolic murmur, rubs, gallop, clicks GI/Abdominal exam: Present: soft, normal bowel sounds. Absent: distended, tenderness, guarding, rebound, rigid Neurological exam: Present: alert, oriented X3, CN II-XII intact Psychiatric exam: Present: normal affect, normal mood Skin exam: Present: warm, dry, intact, normal color. Absent: rash Course Vital Signs 01/14/20 01/14/20 01/14/20 09:40 09:46 10:46 Temperature 97.6 F Pulse Rate 95 64 Respiratory 16 18 18 Rate Blood Pressure 125/58 108/52 O2 Sat by Pulse 97 97 Oximetry Medical Decision Making - Medical Decision Making 24-year-old male patient presents to the emergency department today for evaluation after having a seizure. Patient does have history of seizures states he has not been taking his medication. Physical examination is unremarkable. He is neurologically intact with no focal deficits. Labs reviewed and were unremarkable. He did have positive marijuana and cocaine in his urine. Did advise him to stop using these drugs. I gave him a loading dose of Keppra. I sent refills of his seizure medication to the pharmacy. Instructed him to follow up with his primary care physician and his neurologist for further evaluation as soon as possible. Return parameters were discussed in detail. He verbalizes understanding and agrees this plan. - Lab Data Result diagrams: 01/14/20 10:13 01/14/20 10:13 Lab Results 01/14/20 01/14/20 01/14/20 Range/Units 10:13 10:13 10:13 WBC 14.4 H (3.8-10.6) k/uL RBC 5.41 (4.30-5.90) m/uL Hgb 15.0 (13.0-17.5) gm/dL Hct 47.7 (39.0-53.0) % MCV 88.1 (80.0-100.0) fL MCH 27.7 (25.0-35.0) pg MCHC 31.5 (31.0-37.0) g/dL RDW 13.3 (11.5-15.5) % Plt Count 259 (150-450) k/uL Neutrophils % 69 % Lymphocytes % 23 % Monocytes % 6 % Eosinophils % 1 % Basophils % 0 % Neutrophils # 10.0 H (1.3-7.7) k/uL Lymphocytes # 3.3 (1.0-4.8) k/uL Monocytes # 0.9 (0-1.0) k/uL Eosinophils # 0.1 (0-0.7) k/uL Basophils # 0.0 (0-0.2) k/uL Sodium 139 (137-145) mmol/L Potassium 4.7 (3.5-5.1) mmol/L Chloride 108 H (98-107) mmol/L Carbon Dioxide 12 L (22-30) mmol/L Anion Gap 19 mmol/L BUN 16 (9-20) mg/dL Creatinine 1.17 (0.66-1.25) mg/dL Est GFR (CKD-EPI)AfAm >90 (>60 ml/min/1.73 sqM) Est GFR (CKD-EPI)NonAf 87 (>60 ml/min/1.73 sqM) Glucose 140 H (74-99) mg/dL Calcium 9.7 (8.4-10.2) mg/dL Total Bilirubin 0.2 (0.2-1.3) mg/dL AST 30 (17-59) U/L ALT 19 (4-49) U/L Alkaline Phosphatase 54 (38-126) U/L Total Protein 7.7 (6.3-8.2) g/dL Albumin 4.8 (3.5-5.0) g/dL Urine Color Light Yellow Urine Appearance Clear (Clear) Urine pH 5.0 (5.0-8.0) Ur Specific [place] 1.008 (1.001-1.035) Urine Protein 1+ H (Negative) Urine Glucose (UA) Negative (Negative) Urine Ketones Negative (Negative) Urine Blood Small H (Negative) Urine Nitrite Negative (Negative) Urine Bilirubin Negative (Negative) Urine Urobilinogen <2.0 (<2.0) mg/dL Ur Leukocyte Esterase Negative (Negative) Urine RBC <1 (0-5) /hpf Urine WBC 1 (0-5) /hpf Urine Bacteria Rare H (None) /hpf Hyaline Casts 1 (0-2) /lpf Urine Mucus Rare H (None) /hpf Urine Opiates Screen Not Detected (NotDetected) Ur Oxycodone Screen Not Detected (NotDetected) Urine Methadone Screen Not Detected (NotDetected) Ur Propoxyphene Screen Not Detected (NotDetected) Ur Barbiturates Screen Not Detected (NotDetected) Valproic Acid <10.0 ug/mL U Tricyclic Antidepress Not Detected (NotDetected) Ur Phencyclidine Scrn Not Detected (NotDetected) Ur Amphetamines Screen Not Detected (NotDetected) U Methamphetamines Scrn Not Detected (NotDetected) U Benzodiazepines Scrn Not Detected (NotDetected) Urine Cocaine Screen Detected H (NotDetected) U Marijuana (THC) Screen Detected H (NotDetected) Serum Alcohol <10 mg/dL - EKG Data -: EKG Interpreted by [facility] EKG Comments: EKG obtained at 0947 shows sinus bradycardia with a markedly sinus arrhythmia. Ventricular rate is 58, LA interval 132, QRS duration 96, QT 414, QTC 406. No evidence of ST elevation or depression. Disposition Clinical Impression: Seizure, Polysubstance abuse Disposition: HOME SELF-CARE Condition: Good Instructions (If sedation given, give patient instructions): Polysubstance Abuse (ED), Recurrent Seizures in Adults (ED) Additional Instructions: Increase fluids. Avoid drugs. Take medications as directed. Return to the emergency department for any new, worsening, or concerning symptoms. Prescriptions: Divalproex ER [Depakote ER] 500 mg PO DAILY #30 tab levETIRAcetam [Keppra] 1,000 mg PO Q12HR #60 tab Is patient prescribed a controlled substance at d/c from ED?: No Referrals: Nayan Mendoza MD [Primary Care Provider] - 1-2 days Time of Disposition: 11:29
[2020-01-14 10:30] LABS: Basophils % (A) 0 %; Eosinophils # (A) 0.1 k/uL (0-0.7); Eosinophils % (A) 1 %; HCT 47.7 % (39.0-53.0); Lymphocytes # (A) 3.3 k/uL (1.0-4.8); Lymphocytes % (A) 23 %; MCH 27.7 pg (25.0-35.0); MCHC 31.5 g/dL (31.0-37.0); MCV 88.1 fL (80.0-100.0); Mean Platelet Volume 7.4; Monocytes # (A) 0.9 k/uL (0-1.0); Monocytes % (A) 6 %; Neutrophils % (A) 69 %; Platelet Count 259 k/uL (150-450); RBC 5.41 m/uL (4.30-5.90); RDW 13.3 % (11.5-15.5); WBC 14.4 k/uL (3.8-10.6)
[2020-01-14 10:41] LABS: ALT 19 U/L (4-49); AST 30 U/L (17-59); African American GFR (CKD) >90 (>60 ml/min/1.73 sqM); Albumin 4.8 g/dL (3.5-5.0); Alcohol <10 mg/dL; Alkaline Phosphatase 54 U/L (38-126); Anion Gap 19 mmol/L; Blood Urea Nitrogen 16 mg/dL (9-20); Calcium 9.7 mg/dL (8.4-10.2); Carbon Dioxide 12 mmol/L (22-30); Chloride 108 mmol/L (98-107); Glucose 140 mg/dL (74-99); Non-African American GFR(CKD) 87 (>60 ml/min/1.73 sqM); Potassium 4.7 mmol/L (3.5-5.1); Sodium 139 mmol/L (137-145); Total Bilirubin 0.2 mg/dL (0.2-1.3); Total Protein 7.7 g/dL (6.3-8.2)
[2020-01-14 10:46] LABS: Valproic Acid (Depakene) <10.0 ug/mL
[2020-01-14 10:56] LABS: Appearance,Urine Clear (Clear); Bacteria,Urine Rare /hpf; Bilirubin,Urine Negative (Negative); Blood,Urine Small (Negative); Color,Urine Light Yellow; Glucose,Urine (UA) Negative (Negative); Hyaline Casts,Urine 1 /lpf (0-2); Ketones,Urine Negative (Negative); Leukocyte Esterase,Urine Negative (Negative); Mucus,Urine Rare /hpf; Nitrite,Urine Negative (Negative); Protein,Urine 1+ (Negative); RBC,Urine <1 /hpf (0-5); Specific Gravity,Urine 1.008 (1.001-1.035); Urobilinogen,Urine <2.0 mg/dL (<2.0); WBC,Urine 1 /hpf (0-5)
[2020-01-14 11:05] LABS: Cocaine Screen,Urine Detected (NotDetected); Opiate Screen,Urine Not Detected (NotDetected); Phencyclidine Screen,Urine Not Detected (NotDetected); Urn Cannabinoid Scrn Detected (NotDetected)
[2020-01-14 11:06] LABS: Amphetamine Screen,Urine Not Detected (NotDetected); Barbiturate Screen,Urine Not Detected (NotDetected); Benzodiazepines Screen,Urine Not Detected (NotDetected); Methadone Screen, Urine Not Detected (NotDetected); Oxycodone Screen, Urine Not Detected (NotDetected); Tricyclic Antidepressant,Urine Not Detected (NotDetected)
[2020-01-14 11:26] VITALS: RESP 18
[2020-01-14 12:08] VITALS: BP 103/53; PULSE 67
== END 2020-01-14 11:58 | disposition home or self-care (01) ==
LOC: EC 09:30
DX: G40.909 Epilepsy, unspecified, not intractable, without status epilepticus (principal); F19.10 Other psychoactive substance abuse, uncomplicated; Z88.5 Allergy status to narcotic agent; Z88.6 Allergy status to analgesic agent; Z88.8 Allergy status to other drugs, medicaments and biological substances; Z91.011 Allergy to milk products; Z87.891 Personal history of nicotine dependence
CPT/HCPCS: 99284 ×2; 96365 ×2; 96366 ×2; 96361 ×2; 99283; 36415; 93005; 80164; 80053; 80177; 85025; 81001; 80306; G0480; J1953; 80320

== ENCOUNTER 2020-01-14 14:08 | Emergency (ER) | payer OTHER ==
[2020-01-14 14:12] VITALS: RESP 16; TEMP 98.5
[2020-01-14] MEDS ORDERED: LIDOCAINE 5% PATCH TOPICAL STA (14:34)
[2020-01-14] MEDS ORDERED: CYCLOBENZAPRINE 5 MG TAB PO STA (14:35)
--- NOTE | 2020-01-14 14:37 | ED ---
Back Pain HPI - General Chief Complaint: Back Pain/Injury Stated Complaint: Revisit Back Pain Time Seen by Provider: 01/14/20 14:16 Source: patient Limitations: no limitations - History of Present Illness Initial Comments: Patient is a 24-year-old male with history of epilepsy presenting to the emergency department with a chief complaint of back pain. Patient discharged from the emergency department earlier today for 2 tonic-clonic seizures. Patient was discharged after receiving some Keppra. The is also present during examination sure states the pain is typically drowsy for the rest of the day after having seizures. The states the patient developed back pain after discharge. Patient states the pain is exacerbated when Jaci leading to the bathroom but really. He has been pulling most of the time since he was discharged. He does report exacerbation of pain with left and right rotation, flexion and extension. Denies taking any other medication to alleviate the symptoms. No urinary bowel incontinence, saddle anesthesia. - Related Data Previous Rx's Medication Instructions Recorded Divalproex ER [Depakote ER] 500 mg PO DAILY 14 Days #14 tab 12/19/19 levETIRAcetam [Keppra] 1,000 mg PO Q12HR 14 Days #28 tab 12/19/19 Cyclobenzaprine [Flexeril] 5 mg PO TID PRN #15 tablet 01/14/20 Divalproex ER [Depakote ER] 500 mg PO DAILY #30 tab 01/14/20 levETIRAcetam [Keppra] 1,000 mg PO Q12HR #60 tab 01/14/20 Allergies Allergy/AdvReac Type Severity Reaction Status Date / Time acetaminophen [From Tylenol] Allergy Unknown Verified 01/14/20 14:12 codeine Allergy Swelling Verified 01/14/20 14:12 ibuprofen Allergy Unknown Verified 01/14/20 14:12 lactose Allergy Unknown Verified 01/14/20 14:12 phenytoin [From Dilantin] Allergy Unknown Verified 01/14/20 14:12 Review of Systems ROS Statement: Those systems with pertinent positive or pertinent negative responses have been documented in the HPI. ROS Other: All systems not noted in ROS Statement are negative. Past Medical History Past Medical History: Seizure Disorder Additional Past Medical History / Comment(s): Narcolepsy History of Any Multi-Drug Resistant Organisms: None Reported Past Surgical History: No Surgical Hx Reported Past Psychological History: ADD/ADHD, Anxiety, Depression Smoking Status: Former smoker Past Alcohol Use History: Occasional Past Drug Use History: Marijuana - Past Family History Mother Family Medical History: Hypertension Brother(s) Additional Family Medical History / Comment(s): Epilepsy General Exam Limitations: no limitations General appearance: alert, in no apparent distress Head exam: Present: atraumatic, normocephalic, normal inspection Eye exam: Present: normal appearance, PERRL, EOMI Pupils: Present: normal accommodation ENT exam: Present: normal exam, normal oropharynx, mucous membranes moist Neck exam: Present: normal inspection, full ROM. Absent: tenderness Respiratory exam: Present: normal lung sounds bilaterally. Absent: respiratory distress, wheezes Cardiovascular Exam: Present: regular rate, normal rhythm, normal heart sounds. Absent: bradycardia GI/Abdominal exam: Present: soft. Absent: distended, tenderness, guarding Extremities exam: Present: normal inspection, full ROM, normal capillary refill, other (+2 ulnar and radial pulses bilaterally.) Back exam: Present: normal inspection, full ROM (Pain with left and right rotation, flexion and extension.), paraspinal tenderness (Bilateral lumbar tenderness). Absent: vertebral tenderness Neurological exam: Present: alert, oriented X3 Psychiatric exam: Present: normal affect, normal mood, other (Drowsy) Skin exam: Present: warm, dry, intact, normal color Course Vital Signs 01/14/20 14:09 Temperature 98.5 F Pulse Rate 77 Respiratory 16 Rate Blood Pressure 139/70 O2 Sat by Pulse 100 Oximetry Medical Decision Making - Medical Decision Making Patient is a 24-year-old male presenting to the emergency department with a chief complaint of back pain. Patient was discharged earlier today for a seizur e. UDS revealed cocaine and marijuana. Patient patient developed pain in his back after he was discharged. Patient take aspirin prior to arrival. On initial evaluation patient is resting comfortably and sleeping. Patient is slightly drowsy to answering questions which is typical for him after having a seizure according to the . No vertebral tenderness. Patient does have some paraspinal tenderness. Lidoderm patches applied. Patient noted to aspirin prior to arrival which I suspect has alleviate most of his pain. I advised the to continue with [id number] analgesics. They will be discharged with Flexeril. I confirmed with the pharmacist, Annalee, that there are no drug interactions between the Keppra and Depakote with Flexeril. Return parameters were thoroughly discussed with the patient and was understanding and agreeable. Case discussed with physician. Disposition Clinical Impression: Strain of lumbar region, Back pain Disposition: HOME SELF-CARE Condition: Stable Instructions (If sedation given, give patient instructions): Acute Low Back Pain (ED) Additional Instructions: Take prescribed medication as directed. Continue taking aspirin every 4-6 hours. Return to emergency department if symptoms worsen. Follow up with your primary care. Prescriptions: Cyclobenzaprine [Flexeril] 5 mg PO TID PRN #15 tablet PRN Reason: Muscle Spasm Is patient prescribed a controlled substance at d/c from ED?: No Referrals: Nayan Mendoza MD [Primary Care Provider] - 1-2 days Time of Disposition: 15:30
[2020-01-14 16:06] VITALS: BP 132/72; PULSE 78
== END 2020-01-14 16:08 | disposition home or self-care (01) ==
LOC: EC 14:08
DX: S39.012A Strain of muscle, fascia and tendon of lower back, initial encounter (principal); R42 Dizziness and giddiness; G40.909 Epilepsy, unspecified, not intractable, without status epilepticus; Z87.891 Personal history of nicotine dependence; Z88.6 Allergy status to analgesic agent; Z88.5 Allergy status to narcotic agent; Z91.011 Allergy to milk products; Z88.8 Allergy status to other drugs, medicaments and biological substances; X50.9XXA Other and unspecified overexertion or strenuous movements or postures, initial encounter
CPT/HCPCS: 99283

== ENCOUNTER 2020-01-14 23:13 | Observation (INO) | payer OTHER ==
[2020-01-15] MEDS ORDERED: LORazepam 2 MG/ML INJ IV STA (00:06)
[2020-01-15] MEDS ORDERED: SODIUM CHLORIDE 0.9% 1,000 ML IV STA ×3 (00:06→01:53)
[2020-01-15] MEDS ORDERED: MORPHINE SULFATE 4 MG/ML SYRINGE IVP STA (00:07)
[2020-01-15] MEDS ORDERED: ONDANSETRON 4 MG/2 ML VIAL IVP STA (00:07)
--- NOTE | 2020-01-15 00:37 | ED ---
Nausea/Vomiting/Diarrhea HPI - General Chief complaint: Nausea/Vomiting/Diarrhea Stated complaint: Vomiting Time Seen by Provider: 01/14/20 23:20 Source: patient Mode of arrival: ambulatory Limitations: no limitations - Related Data Previous Rx's Medication Instructions Recorded Divalproex ER [Depakote ER] 500 mg PO DAILY 14 Days #14 tab 12/19/19 levETIRAcetam [Keppra] 1,000 mg PO Q12HR 14 Days #28 tab 12/19/19 Cyclobenzaprine [Flexeril] 5 mg PO TID PRN #15 tablet 01/14/20 Divalproex ER [Depakote ER] 500 mg PO DAILY #30 tab 01/14/20 levETIRAcetam [Keppra] 1,000 mg PO Q12HR #60 tab 01/14/20 Allergies Allergy/AdvReac Type Severity Reaction Status Date / Time acetaminophen [From Tylenol] Allergy Unknown Verified 01/14/20 23:18 codeine Allergy Swelling Verified 01/14/20 23:18 ibuprofen Allergy Unknown Verified 01/14/20 23:18 lactose Allergy Unknown Verified 01/14/20 23:18 phenytoin [From Dilantin] Allergy Unknown Verified 01/14/20 23:18 Review of Systems ROS Statement: Those systems with pertinent positive or pertinent negative responses have been documented in the HPI. ROS Other: All systems not noted in ROS Statement are negative. Past Medical History Past Medical History: Seizure Disorder Additional Past Medical History / Comment(s): Narcolepsy History of Any Multi-Drug Resistant Organisms: None Reported Past Surgical History: No Surgical Hx Reported Past Psychological History: ADD/ADHD, Anxiety, Depression Smoking Status: Former smoker Past Alcohol Use History: Occasional Past Drug Use History: Marijuana - Past Family History Mother Family Medical History: Hypertension Brother(s) Additional Family Medical History / Comment(s): Epilepsy General Exam Limitations: no limitations Course Vital Signs 01/14/20 23:14 Temperature 98.2 F Pulse Rate 66 Respiratory 18 Rate Blood Pressure 140/92 O2 Sat by Pulse 100 Oximetry Medical Decision Making - Lab Data Result diagrams: 01/15/20 01:14 01/15/20 01:14 Lab Results 01/15/20 01/15/20 Range/Units 01:14 01:14 WBC 10.6 (3.8-10.6) k/uL RBC 5.15 (4.30-5.90) m/uL Hgb 14.8 (13.0-17.5) gm/dL Hct 44.7 (39.0-53.0) % MCV 86.7 (80.0-100.0) fL MCH 28.7 (25.0-35.0) pg MCHC 33.1 (31.0-37.0) g/dL RDW 13.3 (11.5-15.5) % Plt Count 213 (150-450) k/uL Neutrophils % 71 % Lymphocytes % 16 % Monocytes % 10 % Eosinophils % 2 % Basophils % 0 % Neutrophils # 7.5 (1.3-7.7) k/uL Lymphocytes # 1.7 (1.0-4.8) k/uL Monocytes # 1.1 H (0-1.0) k/uL Eosinophils # 0.2 (0-0.7) k/uL Basophils # 0.0 (0-0.2) k/uL Sodium 139 (137-145) mmol/L Potassium 4.0 (3.5-5.1) mmol/L Chloride 110 H (98-107) mmol/L Carbon Dioxide 20 L (22-30) mmol/L Anion Gap 9 mmol/L BUN 24 H (9-20) mg/dL Creatinine 2.57 H (0.66-1.25) mg/dL Est GFR (CKD-EPI)AfAm 39 (>60 ml/min/1.73 sqM) Est GFR (CKD-EPI)NonAf 34 (>60 ml/min/1.73 sqM) Glucose 75 (74-99) mg/dL Calcium 9.3 (8.4-10.2) mg/dL Total Bilirubin 0.7 (0.2-1.3) mg/dL AST 40 (17-59) U/L ALT 18 (4-49) U/L Alkaline Phosphatase 51 (38-126) U/L Total Protein 6.9 (6.3-8.2) g/dL Albumin 4.2 (3.5-5.0) g/dL Salicylates 4.7 mg/dL Acetaminophen <10.0 ug/mL Phenytoin <3.0 ug/mL Valproic Acid <10.0 ug/mL Carbamazepine <3.0 ug/mL Booth <0.2 mmol/L Serum Alcohol <10 mg/dL - EKG Data -: EKG Interpreted by Me (EKG sinus bradycardia 53. [place] 120 QRS or QTC 420) Disposition Clinical Impression: Acute vomiting, Back pain, Dehydration Disposition: ADMITTED IP TO THIS HOSP Condition: Fair Is patient prescribed a controlled substance at d/c from ED?: No
[2020-01-15 01:32] LABS: Basophils % (A) 0 %; Eosinophils # (A) 0.2 k/uL (0-0.7); Eosinophils % (A) 2 %; HCT 44.7 % (39.0-53.0); HGB 14.8 gm/dL (13.0-17.5); Lymphocytes # (A) 1.7 k/uL (1.0-4.8); Lymphocytes % (A) 16 %; MCH 28.7 pg (25.0-35.0); MCHC 33.1 g/dL (31.0-37.0); MCV 86.7 fL (80.0-100.0); Mean Platelet Volume 7.6; Monocytes # (A) 1.1 k/uL (0-1.0); Monocytes % (A) 10 %; Neutrophils # (A) 7.5 k/uL (1.3-7.7); Neutrophils % (A) 71 %; Platelet Count 213 k/uL (150-450); RBC 5.15 m/uL (4.30-5.90); RDW 13.3 % (11.5-15.5); WBC 10.6 k/uL (3.8-10.6)
[2020-01-15 01:49] LABS: ALT 18 U/L (4-49); AST 40 U/L (17-59); Acetaminophen <10.0 ug/mL; African American GFR (CKD) 39 (>60 ml/min/1.73 sqM); Albumin 4.2 g/dL (3.5-5.0); Alcohol <10 mg/dL; Alkaline Phosphatase 51 U/L (38-126); Anion Gap 9 mmol/L; Blood Urea Nitrogen 24 mg/dL (9-20); Calcium 9.3 mg/dL (8.4-10.2); Carbamazepine (Tegretol) <3.0 ug/mL; Carbon Dioxide 20 mmol/L (22-30); Chloride 110 mmol/L (98-107); Glucose 75 mg/dL (74-99); Lithium <0.2 mmol/L; Non-African American GFR(CKD) 34 (>60 ml/min/1.73 sqM); Phenytoin (Dilantin) <3.0 ug/mL; Salicylate 4.7 mg/dL; Sodium 139 mmol/L (137-145); Total Bilirubin 0.7 mg/dL (0.2-1.3); Total Protein 6.9 g/dL (6.3-8.2)
[2020-01-15 01:52] LABS: Valproic Acid (Depakene) <10.0 ug/mL
[2020-01-15] MEDS ORDERED: ONDANSETRON 4 MG/2 ML VIAL IVP PRN (01:53)
[2020-01-15] MEDS ORDERED: MORPHINE SULFATE 4 MG/ML SYRINGE IVP PRN (01:53)
[2020-01-15] MEDS ORDERED: SODIUM CHLORIDE 0.9% 500 ML 500 ML IV STA (01:53)
[2020-01-15 03:44] LABS: Amphetamine Screen,Urine Not Detected (NotDetected); Barbiturate Screen,Urine Not Detected (NotDetected); Benzodiazepines Screen,Urine Not Detected (NotDetected); Cocaine Screen,Urine Detected (NotDetected); Methadone Screen, Urine Not Detected (NotDetected); Opiate Screen,Urine Detected (NotDetected); Oxycodone Screen, Urine Not Detected (NotDetected); Phencyclidine Screen,Urine Not Detected (NotDetected); Tricyclic Antidepressant,Urine Not Detected (NotDetected); Urn Cannabinoid Scrn Detected (NotDetected)
[2020-01-15 05:47] VITALS: BP 153/88; PULSE 51; RESP 18; TEMP 97.9
--- NOTE | 2020-01-15 19:32 | HP ---
HISTORY AND PHYSICAL CHIEF COMPLAINT: Seizure disorder. HISTORY OF PRESENT ILLNESS: This gentleman was in the emergency room with seizure disorder, discharged and then came back again. He was admitted. He was on the floor for only a short period of time and then he signed out AGAINST MEDICAL ADVICE. REVIEW OF SYSTEMS: Unobtained. PAST MEDICAL HISTORY, FAMILY HISTORY, PERSONAL AND SOCIAL HISTORY: Unobtained. He was last seen in the office in July of 2012 at the age of 17. At that time he had no health issues. At that time he was he was given refills on Zyprexa. Physical exam not performed. He was admitted to the hospital with the plan of being treated and evaluated for seizure disorder. IMPRESSION: Grand mal seizure disorder. PLAN: 1. Bed rest. 2. IV fluids. 3. Seizure precautions. 4. Neurology consult. JULISA / GEOVANNI: [id number] /
--- NOTE | 2020-01-16 00:23 | DS ---
DISCHARGE SUMMARY CHIEF COMPLAINT: Grand mal seizures. HISTORY OF PRESENT ILLNESS: Details of this man's history can be found in the ER visit and his floor evaluation which was done before he signed out. Physical exam not performed. COURSE IN HOSPITAL: After he was admitted, he was transferred to medical floor and was being positioned to be treated for seizures and undergo further workup when he signed out AMA. FINAL DIAGNOSIS: Grand mal seizure disorder. OPERATIONS: None. CONSULTATIONS: None. He is not improved. MMODL / IJN: [id number] /
== END 2020-01-15 05:49 | disposition left against medical advice (07) ==
LOC: EC 23:13 → 1SOBS 01-15 01:53 → 5NMEDONC 01-15 04:51
PROVIDERS: ADMIT Family Medicine; ATTEND Family Medicine
DX: G40.409 Other generalized epilepsy and epileptic syndromes, not intractable, without status epilepticus (principal); Z53.29 Procedure and treatment not carried out because of patient's decision for other reasons; E86.0 Dehydration; M54.9 Dorsalgia, unspecified; R11.2 Nausea with vomiting, unspecified; R19.7 Diarrhea, unspecified; G47.419 Narcolepsy without cataplexy; F90.9 Attention-deficit hyperactivity disorder, unspecified type; F41.9 Anxiety disorder, unspecified; F32.9 Major depressive disorder, single episode, unspecified; Z20.828 Contact with and (suspected) exposure to other viral communicable diseases; Z79.899 Other long term (current) drug therapy; Z88.6 Allergy status to analgesic agent; Z88.5 Allergy status to narcotic agent; Z88.8 Allergy status to other drugs, medicaments and biological substances; Z91.011 Allergy to milk products; Z87.891 Personal history of nicotine dependence; Z82.49 Family history of ischemic heart disease and other diseases of the circulatory system; Z82.0 Family history of epilepsy and other diseases of the nervous system
CPT/HCPCS: 96361; 96374; 96375; 99285; 36415; 93005; 80156; 80164; 80053; 80185; 80178; 85025; 80306; 83520; G0378; G0480 ×2; U0003; J2060; J2270; J2405; 80320; 80329

== ENCOUNTER 2020-01-22 14:22 | Emergency (ER) | payer OTHER ==
[2020-01-22] MEDS ORDERED: LORazepam 2 MG/ML INJ IV STA (14:27)
--- NOTE | 2020-01-22 14:32 | ED ---
Neuro HPI - General Stated Complaint: Seizure Time Seen by Provider: 01/22/20 14:27 Source: RN notes reviewed, old records reviewed - History of Present Illness Is the patient presenting with stroke symptoms?: Yes -: minutes(s) Initial Comments: This is a 24-year-old male DF for evaluation patient Dese for evaluation regards to seizure. Patient has seizure prior to arrival history of seizures with multiple ER visits for seizures. Patient has been taking medication as prescr ibed. Patient brought in by EMS EMS states patient has significant about 5 minutes not currently actively nausea and vomiting. Patient does occasionally vomit after seizures. Denying fevers or head trauma no other medications denies drug or alcohol abuse History of same: Yes Place: home Improves With: none Worsens With: none Associated Symptoms: denies other symptoms, fever/chills - Related Data Home Medications: Previous Rx's Medication Instructions Recorded Divalproex ER [Depakote ER] 500 mg PO DAILY 14 Days #14 tab 12/19/19 levETIRAcetam [Keppra] 1,000 mg PO Q12HR 14 Days #28 tab 12/19/19 Cyclobenzaprine [Flexeril] 5 mg PO TID PRN #15 tablet 01/14/20 Divalproex ER [Depakote ER] 500 mg PO DAILY #30 tab 01/14/20 levETIRAcetam [Keppra] 1,000 mg PO Q12HR #60 tab 01/14/20 Allergies/Adverse Reactions: Allergies Allergy/AdvReac Type Severity Reaction Status Date / Time acetaminophen [From Tylenol] Allergy Unknown Verified 01/14/20 23:18 codeine Allergy Swelling Verified 01/14/20 23:18 ibuprofen Allergy Unknown Verified 01/14/20 23:18 lactose Allergy Unknown Verified 01/14/20 23:18 phenytoin [From Dilantin] Allergy Unknown Verified 01/14/20 23:18 Review of Systems ROS Statement: Those systems with pertinent positive or pertinent negative responses have been documented in the HPI. ROS Other: All systems not noted in ROS Statement are negative. General Exam General appearance: alert, in no apparent distress Head exam: Present: atraumatic, normocephalic, normal inspection Eye exam: Present: normal appearance, PERRL, EOMI. Absent: scleral icterus, conjunctival injection, periorbital swelling ENT exam: Present: normal exam, mucous membranes moist Neck exam: Present: normal inspection. Absent: tenderness, meningismus, lymphadenopathy Respiratory exam: Present: normal lung sounds bilaterally. Absent: respiratory distress, wheezes, rales, rhonchi, stridor Cardiovascular Exam: Present: regular rate, normal rhythm, normal heart sounds. Absent: systolic murmur, diastolic murmur, rubs, gallop, clicks GI/Abdominal exam: Present: soft, normal bowel sounds. Absent: distended, tenderness, guarding, rebound, rigid Extremities exam: Present: normal inspection, full ROM, normal capillary refill. Absent: tenderness, pedal edema, joint swelling, calf tenderness Back exam: Present: normal inspection Neurological exam: Present: alert, oriented X3, CN II-XII intact Psychiatric exam: Present: normal affect, normal mood Skin exam: Present: warm, dry, intact, normal color. Absent: rash Stroke MDM - Lab Data Result diagrams: 01/22/20 14:50 01/22/20 14:50 Lab Results 01/22/20 01/22/20 Range/Units 14:50 14:50 WBC 17.5 H (3.8-10.6) k/uL RBC 5.49 (4.30-5.90) m/uL Hgb 15.3 (13.0-17.5) gm/dL Hct 50.0 (39.0-53.0) % MCV 91.0 (80.0-100.0) fL MCH 27.8 (25.0-35.0) pg MCHC 30.6 L (31.0-37.0) g/dL RDW 13.1 (11.5-15.5) % Plt Count 266 (150-450) k/uL Neutrophils % (Manual) 33 % Lymphocytes % (Manual) 59 % Monocytes % (Manual) 7 % Eosinophils % (Manual) 2 % Neutrophils # (Manual) 5.78 (1.3-7.7) k/uL Lymphocytes # (Manual) 10.33 H (1.0-4.8) k/uL Monocytes # (Manual) 1.23 H (0-1.0) k/uL Eosinophils # (Manual) 0.35 (0-0.7) k/uL Nucleated RBCs 0 (0-0) /100 WBC Manual Slide Review Performed Hypochromasia Slight Sodium 143 (137-145) mmol/L Potassium 4.2 (3.5-5.1) mmol/L Chloride 107 (98-107) mmol/L Carbon Dioxide 10 L (22-30) mmol/L Anion Gap 26 mmol/L BUN 10 (9-20) mg/dL Creatinine 1.18 (0.66-1.25) mg/dL Est GFR (CKD-EPI)AfAm >90 (>60 ml/min/1.73 sqM) Est GFR (CKD-EPI)NonAf 86 (>60 ml/min/1.73 sqM) Glucose 87 (74-99) mg/dL Calcium 10.0 (8.4-10.2) mg/dL Total Bilirubin 0.5 (0.2-1.3) mg/dL AST 36 (17-59) U/L ALT 27 (4-49) U/L Alkaline Phosphatase 55 (38-126) U/L Total Protein 7.9 (6.3-8.2) g/dL Albumin 5.2 H (3.5-5.0) g/dL Salicylates <1.0 mg/dL Acetaminophen <10.0 ug/mL - NIH Stroke Scale 1a. Level of Consciousness: (0) alert 1b. LOC Questions: (0) answers correctly 1c. LOC Commands: (0) performs tasks correctly 2. Best Gaze: (0) normal 3. Visual: (0) no visual loss 4. Facial Palsy: (0) normal symmetrical movement 5a. Motor Arm Left: (0) no drift 5b. Motor Arm Right: (0) no drift 6a. Motor Leg Left: (0) no drift 6b. Motor Leg Right: (0) no drift 7. Limb Ataxia: (0) absent 8. Sensory: (0) normal 9. Best Language: (0) no aphasia 10. Dysarthria: (0) normal 11. Extinction/Inattention: (0) no abnormality - Medical Decision Making 24 male here with seizure history of seizures, without recurrent seizure here in the ER. Patient be discharged home - EKG Data -: EKG Interpreted by Me (EKG sinus rhythm 82 TN 142 QRS 90 QTC 467) Past Medical History Past Medical History: Seizure Disorder Additional Past Medical History / Comment(s): Narcolepsy History of Any Multi-Drug Resistant Organisms: None Reported Past Surgical History: No Surgical Hx Reported Past Psychological History: ADD/ADHD, Anxiety, Depression Smoking Status: Former smoker Past Alcohol Use History: Occasional Past Drug Use History: Marijuana - Past Family History Mother Family Medical History: Hypertension Brother(s) Additional Family Medical History / Comment(s): Epilepsy Course Vital Signs 01/22/20 14:35 Temperature 97.4 F L Pulse Rate 59 L Respiratory 16 Rate Blood Pressure 144/95 O2 Sat by Pulse 96 Oximetry - Reevaluation(s) Reevaluation #1: 01/22/20 15:49 Medical record is reviewed Reevaluation #2: 01/22/20 15:49 No recurrent seizures in the ER patient symptoms are improved Disposition Clinical Impression: Epileptic seizure, generalized, Recurrent seizures Disposition: HOME SELF-CARE Condition: Good Instructions (If sedation given, give patient instructions): Recurrent Seizures in Adults (ED) Is patient prescribed a controlled substance at d/c from ED?: No Referrals: Nayan Mendoza MD [Primary Care Provider] - 1-2 days
[2020-01-22 14:40] VITALS: RESP 16; TEMP 97.4
[2020-01-22 14:57] LABS: HGB 15.3 gm/dL (13.0-17.5); Hypochromasia Slight; MCH 27.8 pg (25.0-35.0); MCHC 30.6 g/dL (31.0-37.0); Mean Platelet Volume 7.8; Platelet Count 266 k/uL (150-450); RBC 5.49 m/uL (4.30-5.90); RDW 13.1 % (11.5-15.5); WBC 17.5 k/uL (3.8-10.6)
[2020-01-22 15:10] LABS: AST 36 U/L (17-59); Acetaminophen <10.0 ug/mL; African American GFR (CKD) >90 (>60 ml/min/1.73 sqM); Albumin 5.2 g/dL (3.5-5.0); Alkaline Phosphatase 55 U/L (38-126); Anion Gap 26 mmol/L; Blood Urea Nitrogen 10 mg/dL (9-20); Carbon Dioxide 10 mmol/L (22-30); Chloride 107 mmol/L (98-107); Glucose 87 mg/dL (74-99); Non-African American GFR(CKD) 86 (>60 ml/min/1.73 sqM); Potassium 4.2 mmol/L (3.5-5.1); Salicylate <1.0 mg/dL; Sodium 143 mmol/L (137-145); Total Bilirubin 0.5 mg/dL (0.2-1.3); Total Protein 7.9 g/dL (6.3-8.2)
[2020-01-22 15:13] LABS: Eosinophils # (M) 0.35 k/uL (0-0.7); Lymphocytes # (M) 10.33 k/uL (1.0-4.8); Monocytes # (M) 1.23 k/uL (0-1.0); Neutrophils # (M) 5.78 k/uL (1.3-7.7); Neutrophils % (M) 33 %; Nucleated Red Blood Cells 0 /100 WBC (0-0); Total Cells Counted 200
[2020-01-22 15:16] LABS: ALT 27 U/L (4-49)
[2020-01-22 15:54] VITALS: BP 99/53
[2020-01-22 16:15] VITALS: PULSE 64
== END 2020-01-22 16:13 | disposition home or self-care (01) ==
LOC: EC 14:22
DX: G40.409 Other generalized epilepsy and epileptic syndromes, not intractable, without status epilepticus (principal); Z88.5 Allergy status to narcotic agent; Z88.6 Allergy status to analgesic agent; Z88.8 Allergy status to other drugs, medicaments and biological substances; Z91.011 Allergy to milk products; Z87.891 Personal history of nicotine dependence
CPT/HCPCS: 99285; 96374; 36415; 93005; 80053; 85025; 83520; G0480; J2060; 80329

== ENCOUNTER 2020-03-30 17:41 | Emergency (ER) | payer OTHER ==
[2020-03-30 17:56] VITALS: RESP 18
[2020-03-30] MEDS ORDERED: ACETAMINOPHEN TAB 500 MG TAB PO STA (18:15)
--- NOTE | 2020-03-30 18:47 | XR ---
EXAMINATION TYPE: XR ankle complete RT DATE OF EXAM: 03/30/2020 COMPARISON: 01/05/2020 HISTORY: Ankle pain TECHNIQUE: 3 views FINDINGS: Ankle mortise is anatomic. I see no fracture nor dislocation. Joint spaces are fairly laz l. IMPRESSION: Negative right ankle exam. No fracture. No change.
--- NOTE | 2020-03-30 18:56 | ED ---
Lower Extremity Injury HPI - General Chief Complaint: Extremity Injury, Lower Stated Complaint: ankle injury post 2 days Time Seen by Provider: 03/30/20 18:03 Source: patient Mode of arrival: ambulatory Limitations: no limitations - History of Present Illness Initial Comments: 24-year-old male patient presents to the emergency department today for evalua tion of right ankle pain and swelling. Patient states that he twisted the ankle a couple of days ago. States he will get shooting pains up his leg and occasionally he feels of the ankle gives out on him. He denies any previous injury to the ankle. Denies taking any medication for his symptoms. Patient states it is very difficult to work with his ankle feeling this way. Denies any other injuries or concerns. Patient denies any headache, neck pain, back pain, chest pain, shortness of breath, dizziness, weakness, abdominal pain, nausea, vomiting, or difficulties with bowel movements or urination. - Related Data Previous Rx's Medication Instructions Recorded Divalproex ER [Depakote ER] 500 mg PO DAILY 14 Days #14 tab 12/19/19 levETIRAcetam [Keppra] 1,000 mg PO Q12HR 14 Days #28 tab 12/19/19 Cyclobenzaprine [Flexeril] 5 mg PO TID PRN #15 tablet 01/14/20 Divalproex ER [Depakote ER] 500 mg PO DAILY #30 tab 01/14/20 levETIRAcetam [Keppra] 1,000 mg PO Q12HR #60 tab 01/14/20 Allergies Allergy/AdvReac Type Severity Reaction Status Date / Time codeine Allergy Swelling Verified 03/30/20 17:56 ibuprofen Allergy Unknown Verified 03/30/20 17:56 lactose Allergy Unknown Verified 03/30/20 17:56 phenytoin [From Dilantin] Allergy Unknown Verified 03/30/20 17:56 Review of Systems ROS Statement: Those systems with pertinent positive or pertinent negative responses have been documented in the HPI. ROS Other: All systems not noted in ROS Statement are negative. Past Medical History Past Medical History: Seizure Disorder Additional Past Medical History / Comment(s): Narcolepsy History of Any Multi-Drug Resistant Organisms: None Reported Past Surgical History: No Surgical Hx Reported Past Psychological History: ADD/ADHD, Anxiety, Depression Smoking Status: Current every day smoker Past Alcohol Use History: Occasional Past Drug Use History: Marijuana - Past Family History Mother Family Medical History: Hypertension Brother(s) Additional Family Medical History / Comment(s): Epilepsy General Exam Limitations: no limitations General appearance: alert, in no apparent distress, other (This is a well- developed, well-nourished adult male patient in no acute distress. Vital signs upon presentation are temperature 98.0F pulse 72, respirations 18, blood pressure 117/73, pulse ox 98% on room air.) Respiratory exam: Present: normal lung sounds bilaterally. Absent: respiratory distress, wheezes, rales, rhonchi, stridor Cardiovascular Exam: Present: regular rate, normal rhythm, normal heart sounds. Absent: systolic murmur, diastolic murmur, rubs, gallop, clicks Extremities exam: Present: normal inspection, full ROM, tenderness (Medial and lateral malleolus), normal capillary refill, other (Skin to the right ankle appears normal. There is no soft tissue swelling. Skin is warm and dry. Cap refills less than 3 seconds. Pedal and posttibial pulses are 2+ and equal bilaterally.). Absent: pedal edema, joint swelling, calf tenderness Neurological exam: Present: alert, oriented X3, CN II-XII intact Psychiatric exam: Present: normal affect, normal mood Skin exam: Present: warm, dry, intact, normal color. Absent: rash Course Vital Signs 03/30/20 17:54 Temperature 98 F Pulse Rate 72 Respiratory 18 Rate Blood Pressure 117/73 O2 Sat by Pulse 98 Oximetry Medical Decision Making - Medical Decision Making 24-year-old male patient presents to the emergency department today for evaluation of right ankle pain. Patient reports twisting injury 2 days ago. Physical examination did reveal normal neurovascular status. Did have tenderness over the medial and lateral malleolus. He was given Tylenol here in the department. X-ray was obtained and was negative for acute fracture. We did discuss brain as a cause for his symptoms. Is placed in an ankle stirrup splint. He'll be discharged to follow up with his primary care physician for recheck in 1-2 days. He is instructed to have repeat x-rays performed in 7-10 days if pain symptoms persist. He verbalizes understanding and agrees with this plan. - Radiology Data Radiology results: report reviewed, image reviewed 3 views of the right ankle are obtained. Report was reviewed in its entirety. Impression by Dr. Terrell shows negative right ankle exam. No fracture. No change. Disposition Clinical Impression: Right ankle sprain Disposition: HOME SELF-CARE Condition: Good Instructions (If sedation given, give patient instructions): Ankle Sprain (ED) Additional Instructions: Use splint for comfort and support. Take Tylenol as needed for pain relief. Keep the ankle elevated and apply ice. Follow-up with your primary care physician for recheck in 1-2 days. Have repeat x-rays performed in 7-10 days if pain symptoms persist. Return to the emergency department immediately for any new, worsening, or concerning symptoms. Is patient prescribed a controlled substance at d/c from ED?: No Referrals: Nayan Mendoza MD [Primary Care Provider] - 1-2 days Time of Disposition: 18:56
[2020-03-30 19:18] VITALS: BP 126/70; PULSE 71; TEMP 98.3
== END 2020-03-30 19:18 | disposition home or self-care (01) ==
LOC: EC 17:41
DX: S93.401A Sprain of unspecified ligament of right ankle, initial encounter (principal); F17.200 Nicotine dependence, unspecified, uncomplicated; Z88.5 Allergy status to narcotic agent; Z88.6 Allergy status to analgesic agent; Z88.8 Allergy status to other drugs, medicaments and biological substances; Z91.011 Allergy to milk products; X50.9XXA Other and unspecified overexertion or strenuous movements or postures, initial encounter
CPT/HCPCS: 29515; 99283